=== PATIENT | female | born 1955 | race Caucasian/White ===

== ENCOUNTER 2022-08-06 04:04 | Emergency (ER) | payer MEDICARE, OTHER ==
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
[2022-08-06 04:35] LABS: MUDS CUTOFF CONCENTRATIONS CUTOFF CONC BELOW:
[2022-08-06 04:37] LABS: GLUCOSE, URINE (UA) NEGATIVE (NEGATIVE); KETONES,URINE (UA) 40 mg/dL (NEGATIVE); LEUKOCYTE ESTERASE, URINE TRACE (NEGATIVE); NITRITE,URINE NEGATIVE (NEGATIVE); OCCULT BLOOD,URINE SMALL (NEGATIVE); PROTEIN,URINE 30 mg/dL (NEGATIVE); UROBILINOGEN,URINE 2 E.U./dL (NORMAL)
[2022-08-06 04:45] LABS: BACTERIA,URINE Few /HPF (None Seen); BILIRUBIN,URINE NEGATIVE (NEGATIVE); CASTS, URINE 0-2 Hyaline Casts /LPF; CLARITY,URINE CLEAR (CLEAR); ICTOTEST,URINE NEGATIVE; RBC,URINE 0-5 /HPF (0-5); SQUAMOUS EPITHELIAL CELL,UR MOD Squamous (<= Few)
[2022-08-06 04:47] LABS: AMPHETAMINE SCREEN,URINE NEGATIVE (NEGATIVE); BARBITURATE SCREEN,UR NEGATIVE (NEGATIVE); BENZODIAZEPINES SCREEN, URINE NEGATIVE (NEGATIVE); COCAINE SCREEN URINE NEGATIVE (NEGATIVE); METHADONE SCREEN, URINE NEGATIVE (NEGATIVE); METHAMPHETAMINES SCREEN, URINE NEGATIVE (NEGATIVE); OPIATE SCREEN, URINE NEGATIVE (NEGATIVE); OXYCODONE SCREEN, URINE NEGATIVE (NEGATIVE); PROPOXYPHENE SCREEN, URINE NEGATIVE (NEGATIVE); THC CANNABINOID SCREEN, URINE NEGATIVE (NEGATIVE); TRICYCLIC ANTIDEPRESSANT,URINE NEGATIVE (NEGATIVE)
[2022-08-06 05:29] LABS: BASOPHILS # (AUTO) 0.1 10^3/uL (0.0-0.1); BASOPHILS % (AUTO) 0.9 %; EOSINOPHILS # (AUTO) 0.1 10^3/uL (0.0-0.7); EOSINOPHILS % (AUTO) 0.6 %; HCT - HEMATOCRIT 45.6 % (37.0-47.0); HGB - HEMOGLOBIN 15.1 g/dL (12.0-16.0); LYMPHOCYTES # (AUTO) 1.9 10^3/uL (1.5-3.5); LYMPHOCYTES % (AUTO) 19.1 %; MEAN CORPUSCULAR HEMOGLOBIN 28.5 pg (27.0-31.0); MEAN CORPUSCULAR HGB CONC 33.1 g/dL (32.0-36.0); MEAN CORPUSCULAR VOLUME 86.2 fL (81.0-99.0); MEAN PLATELET VOLUME 9.8 fL (7.9-10.8); MONOCYTES # (AUTO) 0.7 10^3/uL (0.0-1.0); MONOCYTES % (AUTO) 7.4 %; NEUTROPHILS # (AUTO) 7.1 10^3/uL (1.5-6.6); NEUTROPHILS % (AUTO) 71.5 %; PLT - PLATELET COUNT 197 10^3/uL (130-450); RED BLOOD COUNT 5.29 10^6/uL (4.20-5.40); RED CELL DISTRIBUTION WIDTH 15.1 % (12.0-15.0); WHITE BLOOD COUNT 9.9 x10^3/uL (4.8-10.8)
[2022-08-06 05:44] LABS: ALBUMIN/GLOBULIN RATIO 1.1 (1.0-2.2); BILIRUBIN,TOTAL 0.9 mg/dL (0.2-1.0); CALCIUM 9.2 mg/dL (8.5-10.3); CREATININE 1.1 mg/dL (0.4-1.0); POTASSIUM 3.3 mmol/L (3.5-5.0); TOTAL PROTEIN 7.7 g/dL (6.7-8.2)
[2022-08-06] MEDS ORDERED: hydrALAZINE 10 MG TABLET PO STA (07:33)
--- NOTE | 2022-08-06 07:51 | CT Report ---
PROCEDURE: HEAD WO INDICATIONS: AMS TECHNIQUE: Noncontrast 4.5 mm thick angled axial sections acquired from the foramen magnum to the vertex. For r adiation dose reduction, the following was used: automated exposure control, adjustment of mA and/or kV according to patient size. COMPARISON: . FINDINGS: Image quality: Excellent. The ventricular system and cortical sulci demonstrate atrophy, consistent for patient's stated age. There are areas of hypodensity in the periventricular and subcortical white matter. There is no acut e intra or extra-axial fluid collection. No acute hemorrhage, mass lesion or midline shift. Focus o f old ischemia is noted within the left centrum semiovale. Brainstem is unremarkable. Globes are sym metrical. Sinuses are aerated. Fluid is present in the right mastoid air cells. Osseous structures ar e intact. IMPRESSION: Reviewed by: Tracy Trejo MD on 08/06/2022 7:50 AM PDT Approved by: Tracy Trejo MD on 08/06/2022 7:50 AM PDT Station ID: [id number]
--- NOTE | 2022-08-06 13:09 | MRI Report ---
PROCEDURE: Brain W/O INDICATIONS: DIZZINESS, CONFUSION TECHNIQUE: Noncontrast axial T1 spin echo, axial T2 fast spin echo, sagittal and axial FLAIR, coronal T2 fast sp in echo, axial gradient echo, axial diffusion and ADC through the brain. COMPARISON: CT head 522 FINDINGS: Image quality: Excellent. The ventricular system and cortical sulci demonstrate atrophy, consistent for patient's stated age. There are areas of hyperintense T2/FLAIR signal in the periventricular and subcortical white matter. There is no acute intra or extra-axial fluid collection. No acute hemorrhage, mass lesion or midlin e shift. Brainstem is unremarkable. There are no areas of restricted diffusion. Focus of old ischem ia is noted in the left h[place] radiata. Globes are symmetrical. Sinuses are aerated. Osseous structu res are intact. Fluid is present within the right mastoid air cells. Recommend correlation of potenti al mastoiditis. IMPRESSION: 1. No acute intracranial process. 2. Moderate atrophy and chronic microvascular ischemic changes. Reviewed by: Tracy Trejo MD on 08/06/2022 1:07 PM PDT Approved by: Tracy Trejo MD on 08/06/2022 1:07 PM PDT Station ID: [id number]
[2022-08-06 13:28] VITALS: BP 163/108
[2022-08-06] MEDS ORDERED: lisinopriL 5 MG TABLET PO STA (14:57)
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
== END 2022-08-06 16:41 | disposition home or self-care (01) ==
LOC: EDUNIT# → ED 04:04
DX: R41.0 Disorientation, unspecified (principal); I10 Essential (primary) hypertension
CPT/HCPCS: 36415; 70450; 70551; 80053; 80306; 81001; 83690; 85025; 99281; 99284; A9270; 87086

== ENCOUNTER → 2022-08-06 | Outpatient (CLI) | payer SELFPAY | END | disposition critical access hospital (66) | LOC: EMS 03:46 | DX: R41.82 Altered mental status, unspecified (principal) | CPT/HCPCS: A0425; A0429 ==

== ENCOUNTER 2022-08-07 11:39 | Outpatient (CLI) | payer SELFPAY | END 2022-08-07 11:40 | disposition critical access hospital (66) | LOC: EMS 11:39 | DX: I10 Essential (primary) hypertension (principal); R00.0 Tachycardia, unspecified | CPT/HCPCS: A0425; A0429 ==

== ENCOUNTER 2022-08-07 11:58 | Emergency (ER) | payer SELFPAY ==
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
[2022-08-07 12:33] LABS: BASOPHILS # (AUTO) 0.1 10^3/uL (0.0-0.1); BASOPHILS % (AUTO) 0.6 %; EOSINOPHILS % (AUTO) 0.3 %; HCT - HEMATOCRIT 45.2 % (37.0-47.0); HGB - HEMOGLOBIN 15.5 g/dL (12.0-16.0); LYMPHOCYTES % (AUTO) 17.2 %; MEAN CORPUSCULAR HGB CONC 34.3 g/dL (32.0-36.0); MEAN CORPUSCULAR VOLUME 84.5 fL (81.0-99.0); MEAN PLATELET VOLUME 10.1 fL (7.9-10.8); MONOCYTES # (AUTO) 0.8 10^3/uL (0.0-1.0); MONOCYTES % (AUTO) 7.1 %; NEUTROPHILS # (AUTO) 8.5 10^3/uL (1.5-6.6); NEUTROPHILS % (AUTO) 74.4 %; PLT - PLATELET COUNT 220 10^3/uL (130-450); RED BLOOD COUNT 5.35 10^6/uL (4.20-5.40); WHITE BLOOD COUNT 11.4 x10^3/uL (4.8-10.8)
[2022-08-07 12:51] LABS: ACETAMINOPHEN < 10 ug/mL (10-30); ALBUMIN 3.9 g/dL (3.2-5.5); ALBUMIN/GLOBULIN RATIO 1.1 (1.0-2.2); ALKALINE PHOSPHATASE 73 IU/L (42-121); ALT ALANINE AMINOTRANSFERASE 15 IU/L (10-60); AST ASPARTATE AMINOTRANSFERASE 17 IU/L (10-42); BUN - BLOOD UREA NITROGEN 27 mg/dL (6-20); CALCIUM 9.6 mg/dL (8.5-10.3); CARBON DIOXIDE - CO2 22 mmol/L (21-32); CHLORIDE 99 mmol/L (101-111); CREATININE 1.3 mg/dL (0.4-1.0); ETOH - ETHANOL < 5.0 mg/dL; GFR - MDRD 41 (>89); GLUCOSE 127 mg/dL (70-100); LIPASE 36 U/L (22-51); POTASSIUM 3.2 mmol/L (3.5-5.0); SALICYLATE < 6.0 mg/dL; SODIUM 133 mmol/L (135-145); TOTAL PROTEIN 7.5 g/dL (6.7-8.2)
[2022-08-07 13:22] LABS: MUDS CUTOFF CONCENTRATIONS CUTOFF CONC BELOW:
[2022-08-07 13:50] LABS: GLUCOSE, URINE (UA) NEGATIVE (NEGATIVE); KETONES,URINE (UA) 15 mg/dL (NEGATIVE); LEUKOCYTE ESTERASE, URINE TRACE (NEGATIVE); NITRITE,URINE NEGATIVE (NEGATIVE); OCCULT BLOOD,URINE LARGE (NEGATIVE); PH,URINE 5.5 PH (5.0-7.5); PROTEIN,URINE 30 mg/dL (NEGATIVE); UROBILINOGEN,URINE 1 (NORMAL) E.U./dL (NORMAL)
[2022-08-07 13:53] LABS: BILIRUBIN,URINE NEGATIVE (NEGATIVE); CLARITY,URINE HAZY (CLEAR); ICTOTEST,URINE NEGATIVE
[2022-08-07 13:57] LABS: BACTERIA,URINE Few /HPF (None Seen); SQUAMOUS EPITHELIAL CELL,UR MANY Squamous (<= Few)
[2022-08-07 14:00] LABS: AMPHETAMINE SCREEN,URINE NEGATIVE (NEGATIVE); BARBITURATE SCREEN,UR NEGATIVE (NEGATIVE); BENZODIAZEPINES SCREEN, URINE NEGATIVE (NEGATIVE); COCAINE SCREEN URINE NEGATIVE (NEGATIVE); METHADONE SCREEN, URINE NEGATIVE (NEGATIVE); METHAMPHETAMINES SCREEN, URINE NEGATIVE (NEGATIVE); OPIATE SCREEN, URINE NEGATIVE (NEGATIVE); OXYCODONE SCREEN, URINE NEGATIVE (NEGATIVE); PROPOXYPHENE SCREEN, URINE NEGATIVE (NEGATIVE); THC CANNABINOID SCREEN, URINE NEGATIVE (NEGATIVE); TRICYCLIC ANTIDEPRESSANT,URINE NEGATIVE (NEGATIVE)
[2022-08-07] MEDS ORDERED: HALOPERIDOL 5 MG/ML VIAL IVP STA (15:19)
[2022-08-07] MEDS ORDERED: LORazepam 2 MG/ML VIAL IVP STA (15:19)
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
[2022-08-07] MEDS: OLANZapine ODT 5 MG TABLET TL SCH (21:02)
[2022-08-08] MEDS ORDERED: NICOTINE 14 MG PATCH TOP STA (04:11)
[2022-08-08 05:56] VITALS: BP 142/72
[2022-08-08] MEDS: OLANZapine ODT 5 MG TABLET TL SCH (10:14)
== END 2022-08-08 11:58 | disposition home or self-care (01) ==
LOC: EDUNIT# → ED 11:58
DX: F22 Delusional disorders (principal); F23 Brief psychotic disorder; Z20.822 Contact with and (suspected) exposure to COVID-19
CPT/HCPCS: 36415; 80053; 80306; 80307; 80320; 80329; 81001; 83690; 84443; 85025; 87635; 93005; 96374; 99281; 99285; A9270; G0425; J2060; Q3014; 81003; 87086

== ENCOUNTER 2022-08-09 12:40 | Outpatient (CLI) | payer SELFPAY | END 2022-08-09 12:41 | disposition critical access hospital (66) | LOC: EMS 12:40 | DX: Z04.6 Encounter for general psychiatric examination, requested by authority (principal); R41.0 Disorientation, unspecified | CPT/HCPCS: A0425; A0429 ==

== ENCOUNTER 2022-08-09 21:19 | Outpatient (CLI) | payer SELFPAY | END 2022-08-09 21:20 | disposition critical access hospital (66) | LOC: EMS 21:19 | DX: Z04.6 Encounter for general psychiatric examination, requested by authority (principal); R41.0 Disorientation, unspecified | CPT/HCPCS: A0425; A0429 ==

== ENCOUNTER 2022-08-09 21:36 | Emergency (ER) | payer SELFPAY ==
[2022-08-10] MEDS ORDERED: NICOTINE 14 MG PATCH TOP STA (00:58)
[2022-08-10] MEDS ORDERED: OLANZapine ODT 5 MG TABLET TL STA (02:43)
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
[2022-08-10 06:20] LABS: CALCIUM 8.8 mg/dL (8.5-10.3); CREATININE 1.1 mg/dL (0.4-1.0); POTASSIUM 3.6 mmol/L (3.5-5.0)
[2022-08-10 09:26] VITALS: BP 165/115
[2022-08-10] MEDS ORDERED: lisinopriL 5 MG TABLET PO STA (09:28)
== END 2022-08-10 10:21 ==
LOC: EDUNIT# → ED 21:36
DX: F23 Brief psychotic disorder (principal); F41.9 Anxiety disorder, unspecified; F22 Delusional disorders
CPT/HCPCS: 36415; 80048; A9270

== ENCOUNTER 2022-08-29 21:49 | Outpatient (CLI) | payer SELFPAY | END 2022-08-29 21:50 | disposition critical access hospital (66) | LOC: EMS 21:49 | DX: R47.81 Slurred speech (principal); R47.02 Dysphasia; R20.0 Anesthesia of skin; I10 Essential (primary) hypertension | CPT/HCPCS: A0425; A0429 ==

== ENCOUNTER 2022-08-29 22:03 | Emergency (ER) | payer SELFPAY ==
[2022-08-29 22:29] LABS: BASOPHILS # (AUTO) 0.1 10^3/uL (0.0-0.1); BASOPHILS % (AUTO) 0.7 %; EOSINOPHILS # (AUTO) 0.2 10^3/uL (0.0-0.7); EOSINOPHILS % (AUTO) 1.6 %; HCT - HEMATOCRIT 44.5 % (37.0-47.0); HGB - HEMOGLOBIN 14.4 g/dL (12.0-16.0); LYMPHOCYTES # (AUTO) 3.3 10^3/uL (1.5-3.5); LYMPHOCYTES % (AUTO) 30.3 %; MEAN CORPUSCULAR HGB CONC 32.4 g/dL (32.0-36.0); MEAN CORPUSCULAR VOLUME 86.6 fL (81.0-99.0); MEAN PLATELET VOLUME 10.2 fL (7.9-10.8); MONOCYTES # (AUTO) 0.8 10^3/uL (0.0-1.0); MONOCYTES % (AUTO) 7.6 %; NEUTROPHILS # (AUTO) 6.4 10^3/uL (1.5-6.6); NEUTROPHILS % (AUTO) 59.4 %; PLT - PLATELET COUNT 228 10^3/uL (130-450); RED BLOOD COUNT 5.14 10^6/uL (4.20-5.40); RED CELL DISTRIBUTION WIDTH 14.9 % (12.0-15.0); WHITE BLOOD COUNT 10.7 x10^3/uL (4.8-10.8)
[2022-08-29 22:41] LABS: ALBUMIN 3.8 g/dL (3.2-5.5); BILIRUBIN,TOTAL 0.6 mg/dL (0.2-1.0); CALCIUM 8.6 mg/dL (8.5-10.3); CREATININE 1.3 mg/dL (0.4-1.0); POTASSIUM 4.1 mmol/L (3.5-5.0); TOTAL PROTEIN 7.7 g/dL (6.7-8.2)
--- NOTE | 2022-08-29 22:50 | CT Report ---
PROCEDURE: HEAD WO INDICATIONS: AMS TECHNIQUE: Noncontrast 4.5 mm thick angled axial sections acquired from the foramen magnum to the vertex. For r adiation dose reduction, the following was used: automated exposure control, adjustment of mA and/or kV according to patient size. COMPARISON: CT head 08/06/2022. FINDINGS: Image quality: Excellent. CSF spaces: There is mild cerebral volume loss with prominence of the ventricles and sulci. Basal ci sterns are patent. No extra-axial fluid collections. Brain: No intracranial hemorrhage, mass, or mass effect. There is a focal hypodensity in the left co shreya radiata redemonstrated consistent with sequelae of a prior lacunar infarct. Gonzalez-white matter in terface is preserved. There are subcortical and periventricular white matter hypodensities consistent with mild chronic small vessel ischemic changes. Skull and face: Calvarium and visualized facial bones are intact, without suspicious lesions. Sinuses: Visualized sinuses are clear. There is partial fluid opacification of the right mastoid air cells compatible with mastoiditis. IMPRESSION: 1. No acute intracranial abnormality. 2. Hypodensity in the left hutchinson radiata consistent with sequelae of a prior lacunar infarct. 3. Mild chronic white matter small vessel ischemic changes and cerebral volume loss. 4. Partial fluid opacification of the right mastoid air cells compatible with mastoiditis. Reviewed by: Cheko Alegre MD on 08/29/2022 10:48 PM PDT Approved by: Cheko Alegre MD on 08/29/2022 10:48 PM PDT Station ID: [id number]
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
[2022-08-29 23:56] LABS: BILIRUBIN,URINE NEGATIVE (NEGATIVE); GLUCOSE, URINE (UA) NEGATIVE (NEGATIVE); KETONES,URINE (UA) 15 mg/dL (NEGATIVE); LEUKOCYTE ESTERASE, URINE SMALL (NEGATIVE); NITRITE,URINE NEGATIVE (NEGATIVE); OCCULT BLOOD,URINE NEGATIVE (NEGATIVE); PH,URINE 5.5 PH (5.0-7.5); PROTEIN,URINE NEGATIVE (NEGATIVE); UROBILINOGEN,URINE 1 (NORMAL) E.U./dL (NORMAL)
[2022-08-29 23:57] LABS: CLARITY,URINE HAZY (CLEAR)
[2022-08-30 00:02] LABS: BACTERIA,URINE Few /HPF (None Seen); CASTS, URINE 0-2 Hyaline Casts /LPF; RBC,URINE 0-5 /HPF (0-5); SQUAMOUS EPITHELIAL CELL,UR MOD Squamous (<= Few)
[2022-08-30] MEDS ORDERED: OLANZapine ODT 5 MG TABLET TL ONE (06:38)
--- NOTE | 2022-08-30 11:20 | ED Physician Documentation ---
ED Addendum - Addendum Addendum: 08/30/22 11:19 Seen by social work, patient was agreeable to inpatient psychiatric placement, [facility] was queried but they did not feel she was appropriate for their facility. Social work did quite a bit of work on this and family friends will come pick her up on Thursday and take her to [place]. Disposition: Discharged home Condition: Stable Diagnoses: 1. Dementia with behavioral disturbances I will refill her Zyprexa 2.5 mg p.o. twice daily #20.
[2022-08-30 11:42] VITALS: BP 147/85
== END 2022-08-30 11:41 | disposition home or self-care (01) ==
LOC: EDUNIT# → ED 22:03
DX: R41.0 Disorientation, unspecified (principal); F03.918 Unspecified dementia, unspecified severity, with other behavioral disturbance; Z20.822 Contact with and (suspected) exposure to COVID-19
CPT/HCPCS: 36415; 70450; 80053; 80320; 81001; 83690; 85025; 87635; 93005; 99283; 99284; A9270; 81003; 87086

== ENCOUNTER 2022-09-02 16:59 | Outpatient (CLI) | payer SELFPAY | END 2022-09-02 17:00 | disposition critical access hospital (66) | LOC: EMS 16:59 | DX: R47.81 Slurred speech (principal); R47.02 Dysphasia | CPT/HCPCS: A0425; A0429 ==

== ENCOUNTER 2022-09-02 17:20 | Emergency (ER) | payer SELFPAY ==
--- NOTE | 2022-09-02 17:29 | ED Physician Documentation ---
History of Present Illness - Stated complaint Stated Complaint: CODE STROKE - Additonal information Additional information: 67-year-old female presents to the emergency department under a code stroke protocol. EMS was notified when a friend at home noted that she had slurred speech. This occurred at 1630. Her blood sugar was 115 for EMS. In route to the hospital the slurred speech fully resolved. There were no findings of facial droop arm or leg weakness. This patient was seen for very similar presentation on 29 August. She had a negative CT. She also had a negative MRI earlier this month. This patient has been seen recently in the ER multiple times for mental health exam and behavioral disturbance. She was discharged from this emergency department on the and a family friend was planning to take the patient with them to [facility]. On presentation to the emergency department the patient is alert and oriented. She has fluid speech. Her NIHSS on presentation is 0. Review of Systems Constitutional: denies: Fever, Chills Eyes: reports: Reviewed and negative Ears: reports: Reviewed and negative Throat: reports: Reviewed and negative Cardiac: reports: Reviewed and negative Respiratory: reports: Reviewed and negative GI: reports: Reviewed and negative : reports: Reviewed and negative Musculoskeletal: reports: Reviewed and negative Neurologic: reports: Other (Slurred speech) PD PAST MEDICAL HISTORY - Past Medical History Neuro: Dementia Psych: Anxiety - Past Surgical History Past Surgical History: No - Present Medications Home Medications: Ambulatory Orders Medication Instructions Recorded Confirmed Lisinopril [Zestril] 10 mg PO DAILY #30 tablet 08/06/22 OLANZapine [Zyprexa] 2.5 mg PO BID #60 tablet 08/08/22 cephALEXin [Keflex] 500 mg PO BID #14 cap 08/09/22 OLANZapine [Zyprexa] 2.5 mg PO BID #20 tablet 08/30/22 Aspirin [[place] Aspirin] 81 mg PO DAILY #30 ea 09/02/22 Atorvastatin [Lipitor] 20 mg PO DAILY #30 tablet 09/02/22 Clopidogrel [Plavix] 75 mg PO DAILY #30 tablet 09/02/22 - Allergies Allergies/Adverse Reactions: Allergies Allergy/AdvReac Type Severity Reaction Status Date / Time No Known Drug Allergies Allergy Verified 09/02/22 17:53 - Social History Does the pt smoke?: No Smoking Status: Never smoker Does the pt have substance abuse?: No - Immunizations Immunizations are current?: No - POLST Patient has POLST: No PD ED PE NORMAL - General General: Alert and oriented X 3, No acute distress - HEENT HEENT: Atraumatic, Moist mucous membranes - Neck Neck: Supple, no meningeal sign, No adenopathy - Cardiac Cardiac: RRR, No murmur, No gallop - Respiratory Respiratory: No respiratory distress - Abdomen Abdomen: Normal bowel sounds, Soft - Back Back: No CVA TTP, No spinal TTP - Derm Derm: Normal color, Warm and dry, No rash - Extremities Extremities: No deformity, No tenderness to palpate, Normal ROM s pain - Neuro Neuro: Alert and oriented X 3, senior payroll specialist 2-12 intact, No motor deficit, Normal speech Eye Opening: Spontaneous Motor: Obeys Commands Verbal: Oriented GCS Score: 15 Results - Vitals Vitals: Vital Signs - 24 hr 09/02/22 09/02/22 09/02/22 17:20 17:57 18:27 Temperature 37.0 C 37.0 C Heart Rate 90 98 82 Respiratory 16 16 22 Rate Blood Pressure 158/100 H 160/90 H 175/96 H O2 Saturation 100 95 94 09/02/22 09/02/22 09/02/22 19:00 19:30 20:00 Temperature Heart Rate 84 71 90 Respiratory 14 20 16 Rate Blood Pressure 145/67 H 162/71 H 160/100 H O2 Saturation 98 97 96 09/02/22 09/02/22 09/02/22 20:30 21:00 21:30 Temperature Heart Rate 100 88 75 Respiratory 16 18 20 Rate Blood Pressure 160/90 H 150/60 H 142/69 H O2 Saturation 96 96 92 09/02/22 22:00 Temperature Heart Rate 56 L Respiratory 16 Rate Blood Pressure 116/69 O2 Saturation 94 Oxygen O2 Source Room air - Labs Labs: Laboratory Tests 09/02/22 09/02/22 09/02/22 17:55 17:55 17:55 WBC 10.2 RBC 5.59 H Hgb 15.7 Hct 47.6 H MCV 85.2 MCH 28.1 MCHC 33.0 RDW 14.6 Plt Count 241 MPV 9.8 Neut # (Auto) 7.0 H Lymph # (Auto) 2.3 [place] # (Auto) 0.7 Eos # (Auto) 0.1 Baso # (Auto) 0.1 Absolute Nucleated RBC 0.00 Nucleated RBC % 0.0 ESR 13 PT 11.1 INR 1.0 Sodium Potassium Chloride Carbon Dioxide Anion Gap BUN Creatinine Estimated GFR (MDRD) Glucose Calcium Total Bilirubin AST ALT Alkaline Phosphatase C-Reactive Protein Total Protein Albumin Globulin Albumin/Globulin Ratio Lipase Ethyl Alcohol 09/02/22 17:55 WBC RBC Hgb Hct MCV MCH MCHC RDW Plt Count MPV Neut # (Auto) Lymph # (Auto) [place] # (Auto) Eos # (Auto) Baso # (Auto) Absolute Nucleated RBC Nucleated RBC % ESR PT INR Sodium 131 L Potassium 3.6 Chloride 96 L Carbon Dioxide 23 Anion Gap 12.0 BUN 23 H Creatinine 1.4 H Estimated GFR (MDRD) 38 L Glucose 108 H Calcium 9.1 Total Bilirubin 0.8 AST 17 ALT 16 Alkaline Phosphatase 69 C-Reactive Protein 2.0 H Total Protein 7.6 Albumin 3.8 Globulin 3.8 Albumin/Globulin Ratio 1.0 Lipase 45 Ethyl Alcohol < 5.0 - Rads (name of study) CTA head Radiology: Final report received (Atherosclerotic calcifications in the inner terminal intracranial carotid arteries with no significant stenosis. Otherwise normal CTA of the head.) CT neck Radiology: Final report received (Atherosclerotic calcifications in the carotid bulbs with 80% stenosis of the right proximal ICA and less than 20% stenosis of the left proximal ICA. Tortuous ICAs especially the right.) PD MEDICAL DECISION MAKING - ED course Complexity details: reviewed old records, reviewed results, re-evaluated patient, considered differential, d/w patient, d/w financial services education consultant ED course: 67-year-old female presents to the emergency department for evaluation of slurred speech. Symptoms began about 1630. By the time the EMS arrived here just after 5 PM the patient was free of any slurred speech. Her NIHSS was 0. She has been seen here recently for similar. She recently underwent a negative CT of the head. She also had an MRI of her brain in early August that did not show any acute findings. Given the repeated evaluations for slurred speech I did perform CT angios of the head and neck. There was an unfortunate finding of 80% stenosis of the right carotid artery with atherosclerotic plaque. I did speak on the phone with Dr. De Paz a neurovascular Neurologist with [facility]. During our conversation we discussed the patient's presentation and her symptoms and the fact that she was now free of findings. He did not feel that an emergent intervention or transfer was necessary as she did not apparently have any further stroke related symptoms. He did make the recommendation that I speak with vascular surgery. I then spoke with Dr. Jc Moura vascular surgeon also with [facility]. He would make the recommendation to continue the patient on Plavix aspirin and a statin. Patient was loaded with aspirin and given Plavix and statin here. However the recommendation was not to "load" with Plavix. He would like the patient to be followed up in his office in the next 2 weeks and will direct the office to call the patient in the next few days to help arrange this appointment. I have discussed this plan with the patient. Over the last few hours she has repeatedly been asking to be discharged home. She is going to go home via taxi. With her last emergency department evaluation she was being seen by social work and I will asked social work to follow-up with the patient tomorrow to ensure the continuity of care. I discussed with the patient emergent return precautions for concerns of strokelike symptoms specifically left-sided deficits. Departure - Departure Disposition: 01 Home, Self Care Clinical Impression: Carotid stenosis Qualifiers: Laterality: right Qualified Code(s): I65.21 - Occlusion and stenosis of right carotid artery Condition: Stable Record reviewed to determine appropriate education?: Yes Instructions: Blockage Carotid Artery Prescriptions: Atorvastatin [Lipitor] 20 mg PO DAILY #30 tablet Clopidogrel [Plavix] 75 mg PO DAILY #30 tablet Aspirin [[place] Aspirin] 81 mg PO DAILY #30 ea Comments: Sheri valencia came to the emergency department because she developed sudden slurred speech. By the time that you arrived to the emergency department the speech had resolved. We did do angiograms of your head and neck. We do find that you have about 80% stenosis Of the right internal carotid artery with atherosclerotic plaque. I have discussed this case with both the neurovascular neurologist at [facility] as well as a vascular surgeon. The recommendation is for you to begin taking aspirin, Plavix and Lipitor daily. These prescriptions have been sent to the [facility] in [place]. [facility] vascular surgery clinic with Dr. Jc Moura will be giving you a call in the next few days to help arrange follow-up for your carotid stenosis. You will need to be seen at a clinic in [place] in order to arrange the treatment. You will most likely need what is called a carotid endarterectomy or carotid stenting. If you do not hear from them in 48 hours p danitza call If at any point you develop worsening symptoms, have left-sided facial droop, slurred speech or arm or with leg weakness especially on the left side then please return immediately to the ER for a second evaluation. NIHSS - Time Time: 17:20 - Level of Consciousness Level of consciousness: (0) Alert, Keenly responsive LOC Questions: (0) Answers both Q's correct LOC Commands: (0) Performs both correctly - Gaze Best Gaze: (0) Normal - Visual Visual: (0) No loss - Facial Palsy Facial Palsy: (0) Normal, symmetrical movement - Motor Arms (both separate) Motor Arm (right): (0) No drift Motor Arm (left): (0) No drift - Motor Legs (both separate) Motor Leg (right): (0) No drift Motor Leg (left): (0) No drift - Limb Ataxia Limb Ataxia: (0) Absent - Sensory Sensory: (0) Normal - Best Language Best Language: (0) No aphasia - Dysarthria Dysarthria: (0) Normal - Extinction and Inattention (formally neg Extinction and inattention: (0) No abnormality - Total Score/Results Total Score/Result: 0
[2022-09-02 18:00] LABS: BASOPHILS # (AUTO) 0.1 10^3/uL (0.0-0.1); BASOPHILS % (AUTO) 0.7 %; EOSINOPHILS # (AUTO) 0.1 10^3/uL (0.0-0.7); EOSINOPHILS % (AUTO) 0.8 %; HCT - HEMATOCRIT 47.6 % (37.0-47.0); HGB - HEMOGLOBIN 15.7 g/dL (12.0-16.0); LYMPHOCYTES # (AUTO) 2.3 10^3/uL (1.5-3.5); LYMPHOCYTES % (AUTO) 22.6 %; MEAN CORPUSCULAR HEMOGLOBIN 28.1 pg (27.0-31.0); MEAN CORPUSCULAR VOLUME 85.2 fL (81.0-99.0); MEAN PLATELET VOLUME 9.8 fL (7.9-10.8); MONOCYTES # (AUTO) 0.7 10^3/uL (0.0-1.0); MONOCYTES % (AUTO) 6.8 %; NEUTROPHILS % (AUTO) 68.7 %; PLT - PLATELET COUNT 241 10^3/uL (130-450); RED BLOOD COUNT 5.59 10^6/uL (4.20-5.40); RED CELL DISTRIBUTION WIDTH 14.6 % (12.0-15.0); WHITE BLOOD COUNT 10.2 x10^3/uL (4.8-10.8)
[2022-09-02] MEDS ORDERED: iohexoL-300 100 ML VIAL ONE (18:10)
[2022-09-02 18:11] LABS: PT - PROTHROMBIN TIME 11.1 secs (9.9-12.6)
--- NOTE | 2022-09-02 18:13 | CT Report ---
PROCEDURE: ANGIO HEAD W/WO INDICATIONS: brief slurred speech CONTRAST: 80ml Omnipaque 300 TECHNIQUE: Precontrast 4.5 mm thick angled axial sections acquired from the foramen magnum to the vertex. Afte r the administration of intravenous contrast, 1 mm thick sections acquired through the [place] is. Postcontrast 4.5 mm thick sections then re-acquired from the foramen magnum to the vertex. 3-di mensional tokbavl-wyxukhztm-foorgukeif (MIP) and/or volume rendering reformats were acquired of the c entral intracranial vasculature. For radiation dose reduction, the following was used: automated ex posure control, adjustment of mA and/or kV according to patient size. COMPARISON: None FINDINGS: Image quality: Excellent. Anterior circulation: Intracranial internal carotid arteries have diffuse calcified atherosclerotic disease with no significant stenosis. The flow within the paired anterior cerebral arteries is normal and symmetric. The flow within the middle cerebral arteries is normal and symmetric. The anterior communicating artery is seen. No aneurysms are seen. Posterior circulation: Visualized portions of the vertebral arteries demonstrate normal caliber, and join to form a normal appearing basilar artery. Flow within the posterior cerebral arteries is norm al and symmetric. No aneurysms are seen. CSF spaces: Ventricles are normal in size and shape. Basal cisterns are patent. No extra-axial flu id collections. Brain: No midline shift. Hypodensity in the left hutchinson radiata is unchanged compared to prior CT c onsistent with a prior lacunar infarct. No intracranial bleeds or masses. Gonzalez-white matter interfac e appears intact. Skull and face: Calvarium and facial bones appear intact, without suspicious lesions. Sinuses: Visualized sinuses and mastoids are clear. IMPRESSION: Atherosclerotic calcifications in the intracranial internal carotid arteries with no sig nificant stenosis. Otherwise normal CTA of the head. Reviewed by: Chinmay Iqbal on 09/02/2022 6:12 PM PDT Approved by: Chinmay Iqbal on 09/02/2022 6:12 PM PDT Station ID: [id number]
--- NOTE | 2022-09-02 18:18 | CT Report ---
PROCEDURE: ANGIO NECK W INDICATIONS: brief slurred speech CONTRAST: 80ml Omnipaque 300 TECHNIQUE: After the administration of intravenous contrast, 1.5 mm axial sections acquired from the aortic arch to the [place] of [place]. Coronal 3-D maximum intensity projection (MIP) and/or volume rendering ref ormats were then performed. For radiation dose reduction, the following was used: automated exposur e control, adjustment of mA and/or kV according to patient size. COMPARISON: None. FINDINGS: Image quality: Excellent. Carotid system: The great vessels demonstrate a conventional anatomy as they arise from the aortic a rch. The origins of the common carotid arteries appear patent. The common carotid arteries demonstr ate normal calibers and courses. Focal atherosclerotic calcified plaque in the bulbs bilaterally with 80% stenosis of the right proximal ICA and less than 20% stenosis of the left proximal ICA. Both ICA s are tortuous, especially the right. Posterior circulation: The origins of the vertebral arteries appear patent. The more superior porti ons of the vertebral arteries demonstrate normal course and caliber. They join to form a normal appe aring basilar artery. Soft tissues: Visualized neck soft tissues demonstrate no suspicious abnormalities. The thyroid is normal in size and there are no incidental findings. Bones: No suspicious bony lesions. Visualized cervical spine appears normally aligned. IMPRESSION: 1. Atherosclerotic calcifications in the carotid bulbs with 80% stenosis of the right proximal ICA an d less than 20% stenosis of the left proximal ICA. 2. Tortuosity of the ICAs, especially the right.. The estimate of stenosis included in the report of the imaging study was calculated using the NASCET method Reviewed by: Chinmay Iqbal on 09/02/2022 6:17 PM PDT Approved by: Chinmay Iqbal on 09/02/2022 6:17 PM PDT Station ID: [id number]
[2022-09-02 18:21] LABS: ALBUMIN 3.8 g/dL (3.2-5.5); ALKALINE PHOSPHATASE 69 IU/L (42-121); ALT ALANINE AMINOTRANSFERASE 16 IU/L (10-60); AST ASPARTATE AMINOTRANSFERASE 17 IU/L (10-42); BILIRUBIN,TOTAL 0.8 mg/dL (0.2-1.0); BUN - BLOOD UREA NITROGEN 23 mg/dL (6-20); CALCIUM 9.1 mg/dL (8.5-10.3); CARBON DIOXIDE - CO2 23 mmol/L (21-32); CHLORIDE 96 mmol/L (101-111); CREATININE 1.4 mg/dL (0.4-1.0); ETOH - ETHANOL < 5.0 mg/dL; GFR - MDRD 38 (>89); GLUCOSE 108 mg/dL (70-100); LIPASE 45 U/L (22-51); POTASSIUM 3.6 mmol/L (3.5-5.0); SODIUM 131 mmol/L (135-145); TOTAL PROTEIN 7.6 g/dL (6.7-8.2)
[2022-09-02] MEDS ORDERED: iohexoL-300 100 ML VIAL IVP ONE (18:45)
[2022-09-02] MEDS ORDERED: SODIUM CHLORIDE 0.9% 1,000 ML IV STA (18:58)
[2022-09-02 22:21] VITALS: BP 116/69
[2022-09-02] MEDS ORDERED: ATORVASTATIN 40 MG TABLET PO STA (22:25)
[2022-09-02] MEDS ORDERED: CLOPIDOGREL 75 MG TABLET PO STA (22:25)
[2022-09-02] MEDS ORDERED: ASPIRIN CHEW 81 MG TABLET PO STA (22:25)
== END 2022-09-02 22:40 | disposition home or self-care (01) ==
LOC: EDBD → EDUNIT# → ED 17:20
DX: I65.21 Occlusion and stenosis of right carotid artery (principal)
CPT/HCPCS: 36415; 70496; 70498; 80053; 80320; 83690; 85025; 85610; 85651; 86140; 99283; 99284; A9270; Q9967

== ENCOUNTER 2022-09-14 09:14 | Outpatient (CLI) | payer SELFPAY | END 2022-09-14 23:59 | disposition critical access hospital (66) | LOC: EMS 09:14 | DX: R53.1 Weakness (principal); R46.89 Other symptoms and signs involving appearance and behavior; R41.0 Disorientation, unspecified | CPT/HCPCS: A0425; A0429 ==

== ENCOUNTER 2022-09-14 09:55 | Inpatient (IN) | payer MEDICARE, OTHER ==
[2022-09-14] MEDS ORDERED: SODIUM CHLORIDE 0.9% 1,000 ML IV STA (10:41)
--- NOTE | 2022-09-14 11:06 | XRAY Report ---
PROCEDURE: Chest 1 View X-Ray INDICATIONS: weakness TECHNIQUE: One view of the chest was acquired. COMPARISON: None. FINDINGS: Surgical changes and devices: None. Lungs and pleura: On the semiupright images, no large pneumothorax or large pleural effusions can be seen. No focal infiltrates are seen. Low lung volumes can be seen, causing a crowded appearance to t he lung markings. Mediastinum: The aorta is prominent and tortuous. The cardiac contours are within normal limits. Bones and chest wall: No suspicious bony lesions. Age-appropriate degenerative changes are seen. Overlying soft tissues appear unremarkable. IMPRESSION: Limited portable chest examination, without an acute abnormality identified. Reviewed by: Dhruv Carter MD on 09/14/2022 10:05 AM [facility] Approved by: Dhruv Carter MD on 09/14/2022 10:05 AM [facility] Station ID: [id number]
[2022-09-14 11:35] LABS: BASOPHILS # (AUTO) 0.1 10^3/uL (0.0-0.1); BASOPHILS % (AUTO) 0.4 %; MEAN PLATELET VOLUME 10.2 fL (7.9-10.8); PLT - PLATELET COUNT 238 10^3/uL (130-450)
[2022-09-14 11:37] LABS: EOSINOPHILS # (AUTO) 0.1 10^3/uL (0.0-0.7); HCT - HEMATOCRIT 46.4 % (37.0-47.0); HGB - HEMOGLOBIN 16.5 g/dL (12.0-16.0); LYMPHOCYTES # (AUTO) 1.6 10^3/uL (1.5-3.5); LYMPHOCYTES % (AUTO) 11.9 %; MEAN CORPUSCULAR HEMOGLOBIN 28.8 pg (27.0-31.0); MEAN CORPUSCULAR HGB CONC 35.6 g/dL (32.0-36.0); MEAN CORPUSCULAR VOLUME 81.1 fL (81.0-99.0); MONOCYTES % (AUTO) 7.4 %; NEUTROPHILS # (AUTO) 10.6 10^3/uL (1.5-6.6); NEUTROPHILS % (AUTO) 78.8 %; RED BLOOD COUNT 5.72 10^6/uL (4.20-5.40); RED CELL DISTRIBUTION WIDTH 13.5 % (12.0-15.0); WHITE BLOOD COUNT 13.5 x10^3/uL (4.8-10.8)
--- NOTE | 2022-09-14 11:40 | ED Physician Documentation ---
History of Present Illness - Stated complaint Stated Complaint: GLF - Chief complaint Chief Complaint: General - History obtained from History obtained from: Patient, EMS - Additonal information Additional information: Patient is a 67-year-old female presenting for evaluation of unwitnessed fall and possible syncope. Patient states that she was in her bathroom and next thing she remembers is being on the floor. She crawled to the front door. She did call EMS. She is unsure of what could have caused her to blackout but feels certain that she did. She is unsure if she hit her head. She reports feeling generalized weakness but denies any specific areas of pain.Patient has been seen here recently for work-up of strokelike symptoms and mental health concerns.She was to go live with some friends in [place] but decided not to do that for unclear reasons.She has recently had an inpatient stay at a psychiatric facility but is unclear what her diagnoses were. She states that she has not been taking her medications and again it is unclear as to why. Review of Systems Constitutional: denies: Fever Nose: denies: Congestion Cardiac: denies: Chest pain / pressure Respiratory: denies: Dyspnea GI: denies: Abdominal Pain Musculoskeletal: denies: Back pain Neurologic: reports: Generalized weakness, Syncope PD PAST MEDICAL HISTORY - Past Medical History Past Medical History: Yes Neuro: Dementia Endocrine/Autoimmune: Type 2 diabetes Psych: Anxiety - Past Surgical History Past Surgical History: No - Present Medications Home Medications: Ambulatory Orders Medication Instructions Recorded Confirmed Lisinopril [Zestril] 10 mg PO DAILY #30 tablet 08/06/22 OLANZapine [Zyprexa] 2.5 mg PO BID #60 tablet 08/08/22 cephALEXin [Keflex] 500 mg PO BID #14 cap 08/09/22 OLANZapine [Zyprexa] 2.5 mg PO BID #20 tablet 08/30/22 Aspirin [[place] Aspirin] 81 mg PO DAILY #30 ea 09/02/22 Atorvastatin [Lipitor] 20 mg PO DAILY #30 tablet 09/02/22 Clopidogrel [Plavix] 75 mg PO DAILY #30 tablet 09/02/22 - Allergies Allergies/Adverse Reactions: Allergies Allergy/AdvReac Type Severity Reaction Status Date / Time No Known Drug Allergies Allergy Verified 09/14/22 10:13 - Social History Does the pt smoke?: No Smoking Status: Never smoker Does the pt drink ETOH?: No Does the pt have substance abuse?: No - Immunizations Immunizations are current?: No - POLST Patient has POLST: No PD ED PE NORMAL - General General: Alert and oriented X 3, No acute distress, Well developed/nourished - HEENT HEENT: Atraumatic, Moist mucous membranes - Neck Neck: Supple, no meningeal sign, No bony TTP, C-Spine cleared by NEXUS criteria - Cardiac Cardiac: RRR, Strong equal pulses - Respiratory Respiratory: No respiratory distress, Clear bilaterally - Abdomen Abdomen: Soft, Non tender - Derm Derm: Warm and dry - Extremities Extremities: No deformity - Neuro Neuro: Alert and oriented X 3, steward/stewardess second 2-12 intact, No motor deficit, No sensory deficit, Normal speech - Psych Psych: Other (Hyperverbal, very tangential but is directable) Results - Vitals Vitals: Vital Signs - 24 hr 09/14/22 10:09 Temperature 35.7 C L Heart Rate 76 Respiratory 12 Rate Blood Pressure 141/55 H O2 Saturation 95 Oxygen O2 Source Room air - EKG (time done) 1029 Rate: Rate (enter#) (71) Rhythm: NSR Intervals: Prolonged QT (538) - Labs Labs: Laboratory Tests 09/14/22 09/14/22 09/14/22 11:30 11:30 13:00 WBC 13.5 H RBC 5.72 H Hgb 16.5 H Hct 46.4 MCV 81.1 MCH 28.8 MCHC 35.6 RDW 13.5 Plt Count 238 MPV 10.2 Neut # (Auto) 10.6 H Lymph # (Auto) 1.6 [place] # (Auto) 1.0 Eos # (Auto) 0.1 Baso # (Auto) 0.1 Absolute Nucleated RBC 0.00 Band Neuts % (Manual) Not Reportable Abnorm Lymph % (Manual) Not Reportable Nucleated RBC % 0.0 Neutrophils # (Manual) Not Reportable Lymphocytes # (Manual) Not Reportable Monocytes # (Manual) Not Reportable Eosinophils # (Manual) Not Reportable Basophils # (Manual) Not Reportable Differential Comment MANUAL=AUTO DIFF Platelet Estimate NORMAL (130-450,000) Platelet Morphology NORMAL APPEARANCE RBC Morph Micro Appear NORMAL APPEARANCE Sodium 124 L Potassium 3.1 L Chloride 83 L Carbon Dioxide 23 Anion Gap 18.0 H BUN 42 H Creatinine 1.8 H Estimated GFR (MDRD) 28 L Glucose 99 Calcium 9.7 Total Bilirubin 1.3 H AST 41 ALT 32 Alkaline Phosphatase 79 Total Creatine Kinase 467 H Total Protein 8.0 Albumin 4.3 Globulin 3.7 Albumin/Globulin Ratio 1.2 Lipase 44 Urine Color YELLOW Urine Clarity HAZY Urine pH 6.0 Ur Specific [place] 1.020 Urine Protein NEGATIVE Urine Glucose (UA) NEGATIVE Urine Ketones TRACE Urine Occult Blood TRACE-INTA Urine Nitrite POSITIVE H Urine Bilirubin NEGATIVE Urine Urobilinogen 0.2 (NORMAL) Ur Leukocyte Esterase SMALL H Urine RBC 0-5 Urine WBC 6-10 H Ur Squamous Epith Cells RARE Squamous Urine Bacteria Few Ur Microscopic Review INDICATED Urine Culture Comments INDICATED Ethyl Alcohol < 5.0 PD MEDICAL DECISION MAKING - ED course Complexity details: reviewed results, re-evaluated patient, d/w patient ED course: Patient presenting for evaluation after Syncopal episode. Unclear story. EKG is reviewed and a sinus rhythm. Labs are reviewed With hyponatremia which is new for patient. Patient denies chest pain or other symptoms that suggest ACS. CT brain is negative and there are no focal deficits. She has had a recent stroke work-ups with findings of carotid stenosis. She has not been compliant with her medications. Discussed the case with hospitalist service who graciously agrees to bring the patient in for observation for her syncope. Departure - Departure Disposition: ED Place in Observation Clinical Impression: Hyponatremia Syncope Qualifiers: Syncope type: unspecified Qualified Code(s): R55 - Syncope and collapse Condition: Stable Discharge Date/Time: 09/14/22 14:12
[2022-09-14 11:48] LABS: ALBUMIN 4.3 g/dL (3.2-5.5); ALBUMIN/GLOBULIN RATIO 1.2 (1.0-2.2); ALKALINE PHOSPHATASE 79 IU/L (42-121); ALT ALANINE AMINOTRANSFERASE 32 IU/L (10-60); AST ASPARTATE AMINOTRANSFERASE 41 IU/L (10-42); BILIRUBIN,TOTAL 1.3 mg/dL (0.2-1.0); BUN - BLOOD UREA NITROGEN 42 mg/dL (6-20); CALCIUM 9.7 mg/dL (8.5-10.3); CARBON DIOXIDE - CO2 23 mmol/L (21-32); CHLORIDE 83 mmol/L (101-111); CK- CREATINE KINASE 467 IU/L (22-269); CREATININE 1.8 mg/dL (0.4-1.0); ETOH - ETHANOL < 5.0 mg/dL; GFR - MDRD 28 (>89); GLUCOSE 99 mg/dL (70-100); LIPASE 44 U/L (22-51); POTASSIUM 3.1 mmol/L (3.5-5.0); SODIUM 124 mmol/L (135-145)
[2022-09-14 11:56] LABS: DIFFERENTIAL COMMENT MANUAL=AUTO DIFF; PLATELET ESTIMATE, MANUAL NORMAL (130-450,000) (NORMAL); PLATELET MORPHOLOGY NORMAL APPEARANCE (NORMAL); RBC MORPHOLOGY (MULTIPLE) NORMAL APPEARANCE (NORMAL)
--- NOTE | 2022-09-14 12:43 | CT Report ---
PROCEDURE: HEAD WO INDICATIONS: fall/weakness TECHNIQUE: Noncontrast 4.5 mm thick angled axial sections acquired from the foramen magnum to the vertex. For r adiation dose reduction, the following was used: automated exposure control, adjustment of mA and/or kV according to patient size. COMPARISON: 09/02/2022, 08/21/2022, 08/06/2022. Correlation is also made with prior brain MRI, 08/06/20. FINDINGS: Image quality: Excellent. CSF spaces: Basal cisterns are patent. No extra-axial fluid collections. Ventricles are normal in size and shape. Brain: No midline shift. No intracranial masses or hemorrhage. Gonzalez-white matter interface is norm al. Age-appropriate brain parenchymal volume loss and chronic small vessel ischemic change can be se en. A prior left hutchinson radiata infarct is seen. Skull and face: Calvarium and visualized facial bones are intact, without suspicious lesions. Sinuses: Visualized sinuses and mastoids are clear. IMPRESSION: Stable intracranial study, without acute hemorrhage or other significant acute intracranial abnormali ty. There is a stable left hutchinson radiata infarction seen. Reviewed by: Dhruv Carter MD on 09/14/2022 11:41 AM [facility] Approved by: Dhruv Carter MD on 09/14/2022 11:41 AM [facility] Station ID: [id number]
[2022-09-14] MEDS ORDERED: POTASSIUM CHLORIDE 20 MEQ TABLET PO STA (12:50)
[2022-09-14] MEDS ORDERED: ONDANSETRON ODT 4 MG TABLET TL PRN (13:08)
[2022-09-14] MEDS ORDERED: oxyCODONE 5 MG TABLET PO PRN (13:08)
[2022-09-14] MEDS ORDERED: SODIUM CHLORIDE FLUSH 0.9% 10 ML SYRINGE IVP PRN (13:08)
[2022-09-14] MEDS ORDERED: MORPHINE 2 MG/ML CARPUJECT IVP PRN (13:08)
[2022-09-14] MEDS ORDERED: ONDANSETRON 4 MG/2 ML VIAL IVP PRN (13:08)
[2022-09-14 13:32] LABS: BILIRUBIN,URINE NEGATIVE (NEGATIVE); GLUCOSE, URINE (UA) NEGATIVE (NEGATIVE); KETONES,URINE (UA) TRACE mg/dL (NEGATIVE); LEUKOCYTE ESTERASE, URINE SMALL (NEGATIVE); NITRITE,URINE POSITIVE (NEGATIVE); OCCULT BLOOD,URINE TRACE-INTA (NEGATIVE); PROTEIN,URINE NEGATIVE (NEGATIVE); UROBILINOGEN,URINE 0.2 (NORMAL) E.U./dL (NORMAL)
[2022-09-14 13:34] LABS: CLARITY,URINE HAZY (CLEAR)
[2022-09-14] MEDS: SODIUM CHLORIDE 0.9% 1,000 ML IV SCH ×2 (13:37→23:27)
[2022-09-14 13:39] LABS: BACTERIA,URINE Few /HPF (None Seen); RBC,URINE 0-5 /HPF (0-5); SQUAMOUS EPITHELIAL CELL,UR RARE Squamous (<= Few)
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
[2022-09-14] MEDS ORDERED: ZINC OXIDE 20% OINT 30 GM TUBE TOP ONE (14:16)
[2022-09-14] MEDS: ZINC OXIDE 20% OINT 30 GM TUBE TOP PRN ×2 (15:30→23:27)
[2022-09-14] MEDS: ACETAMINOPHEN 325 MG TABLET PO PRN (17:08)
[2022-09-14 18:24] LABS: CALCIUM 8.9 mg/dL (8.5-10.3); CREATININE 1.7 mg/dL (0.4-1.0); POTASSIUM 3.2 mmol/L (3.5-5.0)
[2022-09-14] MEDS: OLANZapine ODT 5 MG TABLET TL SCH (20:43)
[2022-09-14] MEDS: SODIUM CHLORIDE FLUSH 0.9% 10 ML SYRINGE IVP SCH ×2 (20:45→23:28)
[2022-09-15 06:09] LABS: BASOPHILS # (AUTO) 0.1 10^3/uL (0.0-0.1); BASOPHILS % (AUTO) 0.9 %; EOSINOPHILS % (AUTO) 0.4 %; HCT - HEMATOCRIT 43.7 % (37.0-47.0); HGB - HEMOGLOBIN 14.6 g/dL (12.0-16.0); LYMPHOCYTES # (AUTO) 1.7 10^3/uL (1.5-3.5); LYMPHOCYTES % (AUTO) 18.6 %; MEAN CORPUSCULAR HGB CONC 33.4 g/dL (32.0-36.0); MEAN CORPUSCULAR VOLUME 83.9 fL (81.0-99.0); MEAN PLATELET VOLUME 9.6 fL (7.9-10.8); MONOCYTES % (AUTO) 10.8 %; NEUTROPHILS # (AUTO) 6.2 10^3/uL (1.5-6.6); PLT - PLATELET COUNT 217 10^3/uL (130-450); RED BLOOD COUNT 5.21 10^6/uL (4.20-5.40); RED CELL DISTRIBUTION WIDTH 13.9 % (12.0-15.0); WHITE BLOOD COUNT 8.9 x10^3/uL (4.8-10.8)
[2022-09-15 06:24] LABS: CALCIUM 8.8 mg/dL (8.5-10.3); CREATININE 1.5 mg/dL (0.4-1.0); POTASSIUM 3.4 mmol/L (3.5-5.0)
[2022-09-15] MEDS: lisinopriL 5 MG TABLET PO SCH (08:21)
[2022-09-15] MEDS: SENNA 8.6 MG TABLET PO SCH (08:21)
[2022-09-15] MEDS: DOCUSATE SODIUM 250 MG CAPSULE PO SCH (08:21)
[2022-09-15] MEDS: polyethylene glycoL 3350 17 GM PACKET PO SCH (08:21)
[2022-09-15] MEDS: ENOXAPARIN 40 MG/0.4 ML SYRINGE SUBQ SCH (08:21)
[2022-09-15] MEDS: CLOPIDOGREL 75 MG TABLET PO SCH (08:22)
[2022-09-15] MEDS: POTASSIUM CHLORIDE 20 MEQ TABLET PO SCH ×2 (08:22→17:03)
[2022-09-15] MEDS: OLANZapine ODT 5 MG TABLET TL SCH ×2 (08:28→21:03)
[2022-09-15] MEDS: SODIUM CHLORIDE FLUSH 0.9% 10 ML SYRINGE IVP SCH ×2 (08:29→17:03)
[2022-09-15] MEDS: ZINC OXIDE 20% OINT 30 GM TUBE TOP PRN (11:32)
--- NOTE | 2022-09-15 13:46 | PHARMACY PROGRESS NOTE ---
- Best Possible Medication History Admit Date and Time: 09/14/22 1300 Processed by: Pharmacy Medication History completed: Yes Patient Interview: Pt unable to participate Secondary Source(s): Physician records, Pharmacy records, Insurance records Patient has been prescribed lisinopril 10 mg daily, olanzapine 2.5 mg bid, atorvastatin 20 mg daily, clopidogrel 75 mg daily, and aspirin 81 mg daily. To date, the patient has not picked up any of these prescriptions at the pharmacy. As the person ultimately responsible for medication therapy, providers are able to order a medication from an existing home medication list in [facility] via the "Reconcile Routine" prior to Confirmation of that medication by technical support coordinator. Such practice is discouraged except when the physician, in their clinical judgment, deems that a medical need exists for a medication without regard to previous use.
[2022-09-15] MEDS: ACETAMINOPHEN 325 MG TABLET PO PRN (15:37)
--- NOTE | 2022-09-15 17:26 | PROVIDER PROGRESS NOTE ---
Progress Note September 15, 2022 5:20 PM Her hyponatremia has improved. She is gone from 124-128 with normal saline. Creatinine is improved and is gone from 1.7-1.5. Urine culture is in process. Overnight there is no fever, no chills. Telemetry did not show any arrhythmias. She has not had several encounters between myself, nursing, and Occupational T herapy. While she is medically stable, her mentation does not allow her to be safe at home. Pharmacy verified her med list. While all of the medications for carotid stenosis and psychosis with Zyprexa were noted in the ambulatory module, her pharmacy confirms that they have received these prescriptions and she is never picked them up. So she has not taken Zyprexa, Plavix, Lipitor, and we cannot confirm the Abilify. Active Medications Acetaminophen (Acetaminophen 325 Mg Tablet) 650 mg PO Q4HR PRN PRN Reason: Pain 1 to 4, or Fever Last Admin: 09/15/22 15:37 Dose: 650 mg Clopidogrel Bisulfate (Clopidogrel 75 Mg Tablet) 75 mg PO DAILY [facility] Last Admin: 09/15/22 08:22 Dose: 75 mg Docusate Sodium (Docusate Sodium 250 Mg Capsule) 250 - 500 mg PO DAILY [facility] Last Admin: 09/15/22 08:21 Dose: 250 mg Enoxaparin Sodium (Enoxaparin 40 Mg/0.4 Ml Syringe) 40 mg SUBQ DAILY [facility] Last Admin: 09/15/22 08:21 Dose: 40 mg Lisinopril (Lisinopril 5 Mg Tablet) 5 mg PO DAILY [facility] Last Admin: 09/15/22 08:21 Dose: 5 mg Morphine Sulfate (Morphine 2 Mg/Ml Carpuject) 2 mg IVP Q2HR PRN PRN Reason: Pain 8 to 10 Multi-Ingredient Ointment (Zinc Oxide 20% Oint 30 Gm Tube) 1 applic TOP PRN PRN PRN Reason: Skin Care Last Admin: 09/15/22 11:32 Dose: 1 applic Olanzapine (Olanzapine Odt 5 Mg Tablet) 2.5 mg TL BID [facility] Last Admin: 09/15/22 08:28 Dose: 2.5 mg Ondansetron HCl (Ondansetron Odt 4 Mg Tablet) 4 mg TL Q6HR PRN PRN Reason: Nausea / Vomiting Ondansetron HCl (Ondansetron 4 Mg/2 Ml Vial) 4 mg IVP Q6HR PRN PRN Reason: Nausea / Vomiting Oxycodone HCl (Oxycodone 5 Mg Tablet) 5 mg PO Q4HR PRN PRN Reason: Pain 5 to 7 Polyethylene Glycol (Polyethylene Glycol 3350 17 Gm Packet) 17 gm PO DAILY [facility] Last Admin: 09/15/22 08:21 Dose: 17 gm Potassium Chloride (Potassium Chloride 20 Meq Tablet) 40 meq PO BIDWM [facility] Stop: 09/16/22 17:01 Last Admin: 09/15/22 17:03 Dose: 40 meq Senna (Senna 8.6 Mg Tablet) 8.6 - 17.2 mg PO DAILY [facility] Last Admin: 09/15/22 08:21 Dose: 8.6 mg Sodium Chloride (Sodium Chloride Flush 0.9% 10 Ml Syringe) 10 ml IVP PRN PRN PRN Reason: NEEDED PER PROVIDER ORDERS Sodium Chloride (Sodium Chloride Flush 0.9% 10 Ml Syringe) 10 ml IVP 0100,0900,1700 [facility] Last Admin: 09/15/22 17:03 Dose: 10 ml No Known Home Medications 09/15/22 Temperature is 36.3. Heart rate is 70. Blood pressure 121/48. Respirations 20. 97% on room air She is 5 feet 4 inches tall, weighs 110.67 kg Middle-aged white female who looks much older than stated age, the top part of her scalp has moderate generalized alopecia Neck is supple without JVD Lungs are clear without increased respiratory effort Regular rate and rhythm Abdomen is soft, nontender, normal bowel sounds Extremities are without edema Sodium 128, potassium 3.4, BUN 40, creatinine 1.5. Random glucose 96. White cell count 8.9. Hemoglobin 14.6. Hematocrit 43.7. Urine culture is in process Assessment/plan 1. Syncope. This patient is such a tangential historian, and very difficult to pin down. Our final assumption was that this woman may have passed out in her bathroom or simply tripped. We may never know. To be safe we admitted her as s yncope. So far telemetry has been negative. 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 Current CT is negative for new infarct. Echocardiogram is not available today and will be available tomorrow. 2. Hypertension. On her usual home dose of Zestril. Blood pressure is occasionally 161 systolic but for the most part stable. No change in medications planned. 3. Carotid stenosis. Resume Lipitor, aspirin and Plavix while she is here 4. Mental health issue. I spoke to social work today. They were in contact with the inpatient psych unit. They feel that she may have some element of memory loss, but in either case, there was no clear psychiatric diagnosis and they discharge her because she was too high level of care to be in an inpatient psych unit. So we have no true diagnosis or help in this arena. She is not able to be safely discharged to home. Social work and case management work on figuring how to get her safely home tomorrow if possible. 5. Dehydration. While I did not think she had dry oral mucosa yesterday, both her hemoglobin and creatinine have improved from yesterday to today. Sodium has also improved with IV hydration. Considering her erratic behavior and lack of insight about taking her medications, I think she most likely has decreased p.o. intake at home.
[2022-09-16 05:13] LABS: BASOPHILS % (AUTO) 0.9 %; EOSINOPHILS % (AUTO) 0.2 %; HCT - HEMATOCRIT 38.9 % (37.0-47.0); HGB - HEMOGLOBIN 13.4 g/dL (12.0-16.0); LYMPHOCYTES # (AUTO) 0.4 10^3/uL (1.5-3.5); LYMPHOCYTES % (AUTO) 9.3 %; MEAN CORPUSCULAR HEMOGLOBIN 28.5 pg (27.0-31.0); MEAN CORPUSCULAR HGB CONC 34.4 g/dL (32.0-36.0); MEAN CORPUSCULAR VOLUME 82.8 fL (81.0-99.0); MEAN PLATELET VOLUME 10.1 fL (7.9-10.8); MONOCYTES # (AUTO) 0.4 10^3/uL (0.0-1.0); NEUTROPHILS # (AUTO) 3.5 10^3/uL (1.5-6.6); NEUTROPHILS % (AUTO) 80.4 %; PLT - PLATELET COUNT 193 10^3/uL (130-450); RED CELL DISTRIBUTION WIDTH 14.3 % (12.0-15.0); WHITE BLOOD COUNT 4.3 x10^3/uL (4.8-10.8)
[2022-09-16] MEDS: CLOPIDOGREL 75 MG TABLET PO SCH (08:37)
[2022-09-16] MEDS: OLANZapine ODT 5 MG TABLET TL SCH ×2 (08:37→20:27)
[2022-09-16] MEDS: POTASSIUM CHLORIDE 20 MEQ TABLET PO SCH ×2 (08:37→16:44)
[2022-09-16] MEDS: SENNA 8.6 MG TABLET PO SCH (08:37)
[2022-09-16] MEDS: lisinopriL 5 MG TABLET PO SCH (08:37)
[2022-09-16] MEDS: DOCUSATE SODIUM 250 MG CAPSULE PO SCH (08:37)
[2022-09-16] MEDS: ENOXAPARIN 40 MG/0.4 ML SYRINGE SUBQ SCH (08:38)
[2022-09-16] MEDS: polyethylene glycoL 3350 17 GM PACKET PO SCH (08:38)
--- NOTE | 2022-09-16 19:14 | PROVIDER PROGRESS NOTE ---
Assessment/Plan - Problem List (1) Syncope Qualifiers: Syncope type: unspecified Qualified Code(s): R55 - Syncope and collapse Assessment/Plan: This patient is such a tangential historian, and very difficult to pin down. Our final assumption was that this woman may have passed out in her bathroom or simply tripped. We may never know. To be safe we admitted her as syncope. So far telemetry has been negative. 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 Current CT is negative for new infarct. Echocardiogram is still pending 2. Hypertension. On her usual home dose of Zestril. Blood pressure is occasionally 161 systolic but for the most part BP stable. No change in medications planned. 3. Carotid stenosis. Resume Lipitor, aspirin and Plavix while she is here 4. Confusion Social workers were in contact with the inpatient psych unit. They feel that she may have some element of memory loss, but in either case, there was no clear psychiatric diagnosis and they discharge her because she was too high level of care to be in an inpatient psych unit. So we have no true diagnosis or help in this arena. She is not able to be safely discharged to home. Social work and case management work on figuring how to get her safely home tomorrow if possible. 5. Dehydration. While we did not think she had dry oral mucosa at admission, both her hemoglobin and creatinine have improved from yesterday to today. Sodium has also improved with IV hydration. Considering her erratic behavior and lack of insight about taking her medications, I think she most likely has decreased p.o. intake at home. - Current Meds Current Meds: Current Medications Generic Name Dose Route Start Last Admin Trade Name Dayo PRN Reason Stop Dose Admin Acetaminophen 650 mg 09/14/22 13:08 09/15/22 15:37 Acetaminophen 325 Mg Tablet PO 650 mg Q4HR PRN Administration Pain 1 to 4, or Fever Clopidogrel Bisulfate 75 mg 09/15/22 09:00 09/16/22 08:37 Clopidogrel 75 Mg Tablet PO 75 mg DAILY [facility] Administration Docusate Sodium 250 - 500 mg 09/15/22 09:00 09/16/22 08:37 Docusate Sodium 250 Mg Capsule PO 250 mg DAILY [facility] Administration Enoxaparin Sodium 40 mg 09/15/22 09:00 09/16/22 08:38 Enoxaparin 40 Mg/0.4 Ml Syringe SUBQ 40 mg DAILY [facility] Administration Lisinopril 5 mg 09/15/22 09:00 09/16/22 08:37 Lisinopril 5 Mg Tablet PO 5 mg DAILY [facility] Administration Multi-Ingredient Ointment 1 applic 09/14/22 15:28 09/15/22 11:32 Zinc Oxide 20% Oint 30 Gm Tube TOP 1 applic PRN PRN Administration Skin Care Olanzapine 2.5 mg 09/14/22 21:00 09/16/22 08:37 Olanzapine Odt 5 Mg Tablet TL 2.5 mg BID [facility] Administration Polyethylene Glycol 17 gm 09/15/22 09:00 09/16/22 08:38 Polyethylene Glycol 3350 17 Gm Packet PO 17 gm DAILY [facility] Administration Senna 8.6 - 17.2 mg 09/15/22 09:00 09/16/22 08:37 Senna 8.6 Mg Tablet PO 8.6 mg DAILY [facility] Administration - Lab Result Fish Bone Diagrams: 09/16/22 04:35 09/15/22 05:55 Subjective - Subjective Patient Reports: Resting Comfortably, Pain (in L toes with mvm) Objective Vital Signs: Vital Signs - 24 hr 09/16/22 09/16/22 09/16/22 00:00 07:58 08:40 Temperature 36.4 C L 36.7 C Heart Rate [ 82 123 H Brachial] Heart Rate [ 124 H 100 Radial] Respiratory 16 Rate Blood Pressure 148/90 H 120/81 H [Right Brachial artery] O2 Saturation 96 97 09/16/22 16:00 Temperature 37.1 C Heart Rate [ 88 Brachial] Heart Rate [ Radial] Respiratory 18 Rate Blood Pressure 129/77 [Right Brachial artery] O2 Saturation 95 Oxygen O2 Source Room air I&O (Last 24 Hrs): Intake and Output Totals x24h 09/14/22 09/15/22 09/16/22 23:59 23:59 23:59 Intake Total 2343.333 2650 1020 Output Total 50 1700 550 Balance 2293.333 950 470 General: Alert HEENT: EOMI, Mucous membr. moist/pink Neck: Supple, No JVD Neuro: Alert, Disoriented Cardiovascular: No murmurs Respiratory: No respiratory distress, Breath sounds nml Abdomen: Normal bowel sounds, No tenderness Extremities: No clubbing, No edema, No tenderness/swelling - Results Results: Laboratory Results WBC 4.3 x10^3/uL (4.8-10.8) L 09/16/22 04:35 RBC 4.70 10^6/uL (4.20-5.40) 09/16/22 04:35 Hgb 13.4 g/dL (12.0-16.0) 09/16/22 04:35 Hct 38.9 % (37.0-47.0) 09/16/22 04:35 MCV 82.8 fL (81.0-99.0) 09/16/22 04:35 MCH 28.5 pg (27.0-31.0) 09/16/22 04:35 MCHC 34.4 g/dL (32.0-36.0) 09/16/22 04:35 RDW 14.3 % (12.0-15.0) 09/16/22 04:35 Plt Count 193 10^3/uL (130-450) 09/16/22 04:35 MPV 10.1 fL (7.9-10.8) 09/16/22 04:35 Neut # (Auto) 3.5 10^3/uL (1.5-6.6) 09/16/22 04:35 Lymph # (Auto) 0.4 10^3/uL (1.5-3.5) L 09/16/22 04:35 Borden # (Auto) 0.4 10^3/uL (0.0-1.0) 09/16/22 04:35 Eos # (Auto) 0.0 10^3/uL (0.0-0.7) 09/16/22 04:35 Baso # (Auto) 0.0 10^3/uL (0.0-0.1) 09/16/22 04:35 Absolute Nucleated RBC 0.00 x10^3/uL 09/16/22 04:35 Band Neuts % (Manual) Not Reportable 09/14/22 11:30 Abnorm Lymph % (Manual) Not Reportable 09/14/22 11:30 Nucleated RBC % 0.0 /100WBC 09/16/22 04:35 Neutrophils # (Manual) Not Reportable 09/14/22 11:30 Lymphocytes # (Manual) Not Reportable 09/14/22 11:30 Monocytes # (Manual) Not Reportable 09/14/22 11:30 Eosinophils # (Manual) Not Reportable 09/14/22 11:30 Basophils # (Manual) Not Reportable 09/14/22 11:30 Differential Comment MANUAL=AUTO DIFF 09/14/22 11:30 Platelet Estimate NORMAL (130-450,000) (NORMAL) 09/14/22 11:30 Platelet Morphology NORMAL APPEARANCE (NORMAL) 09/14/22 11:30 RBC Morph Micro Appear NORMAL APPEARANCE (NORMAL) 09/14/22 11:30 Sodium 128 mmol/L (135-145) L 09/15/22 05:55 Potassium 3.4 mmol/L (3.5-5.0) L 09/15/22 05:55 Chloride 93 mmol/L (101-111) L 09/15/22 05:55 Carbon Dioxide 24 mmol/L (21-32) 09/15/22 05:55 Anion Gap 11.0 (6-13) 09/15/22 05:55 BUN 40 mg/dL (6-20) H 09/15/22 05:55 Creatinine 1.5 mg/dL (0.4-1.0) H 09/15/22 05:55 Estimated GFR (MDRD) 35 (>89) L 09/15/22 05:55 Glucose 96 mg/dL (70-100) 09/15/22 05:55 Calcium 8.8 mg/dL (8.5-10.3) 09/15/22 05:55 Total Bilirubin 1.3 mg/dL (0.2-1.0) H 09/14/22 11:30 AST 41 IU/L (10-42) 09/14/22 11:30 ALT 32 IU/L (10-60) 09/14/22 11:30 Alkaline Phosphatase 79 IU/L (42-121) 09/14/22 11:30 Total Creatine Kinase 467 IU/L (22-269) H 09/14/22 11:30 Total Protein 8.0 g/dL (6.7-8.2) 09/14/22 11:30 Albumin 4.3 g/dL (3.2-5.5) 09/14/22 11:30 Globulin 3.7 g/dL (2.1-4.2) 09/14/22 11:30 Albumin/Globulin Ratio 1.2 (1.0-2.2) 09/14/22 11:30 Lipase 44 U/L (22-51) 09/14/22 11:30 Urine Color YELLOW 09/14/22 13:00 Urine Clarity HAZY (CLEAR) 09/14/22 13:00 Urine pH 6.0 PH (5.0-7.5) 09/14/22 13:00 Ur Specific [place] 1.020 (1.002-1.030) 09/14/22 13:00 Urine Protein NEGATIVE mg/dL (NEGATIVE) 09/14/22 13:00 Urine Glucose (UA) NEGATIVE mg/dL (NEGATIVE) 09/14/22 13:00 Urine Ketones TRACE mg/dL (NEGATIVE) 09/14/22 13:00 Urine Occult Blood TRACE-INTA (NEGATIVE) 09/14/22 13:00 Urine Nitrite POSITIVE (NEGATIVE) H 09/14/22 13:00 Urine Bilirubin NEGATIVE (NEGATIVE) 09/14/22 13:00 Urine Urobilinogen 0.2 (NORMAL) E.U./dL (NORMAL) 09/14/22 13:00 Ur Leukocyte Esterase SMALL (NEGATIVE) H 09/14/22 13:00 Urine RBC 0-5 /HPF (0-5) 09/14/22 13:00 Urine WBC 6-10 /HPF (0-5) H 09/14/22 13:00 Ur Squamous Epith Cells RARE Squamous (<= Few) 09/14/22 13:00 Urine Bacteria Few /HPF (None Seen) 09/14/22 13:00 Ur Microscopic Review INDICATED 09/14/22 13:00 Urine Culture Comments INDICATED 09/14/22 13:00 Ethyl Alcohol < 5.0 mg/dL 09/14/22 11:30 SARS-CoV-2 (PCR) NOT DETECTED 09/14/22 13:16
[2022-09-17] MEDS: lisinopriL 5 MG TABLET PO SCH (08:48)
[2022-09-17] MEDS: CLOPIDOGREL 75 MG TABLET PO SCH (08:48)
[2022-09-17] MEDS: OLANZapine ODT 5 MG TABLET TL SCH ×2 (08:48→21:23)
[2022-09-17] MEDS: SENNA 8.6 MG TABLET PO SCH (08:49)
[2022-09-17] MEDS: ENOXAPARIN 40 MG/0.4 ML SYRINGE SUBQ SCH (08:49)
[2022-09-17] MEDS: polyethylene glycoL 3350 17 GM PACKET PO SCH (08:49)
[2022-09-17] MEDS: DOCUSATE SODIUM 250 MG CAPSULE PO SCH (08:49)
[2022-09-17] MEDS ORDERED: ZINC OXIDE 20% OINT 30 GM TUBE TOP PRN (10:53)
--- NOTE | 2022-09-17 16:28 | PROVIDER PROGRESS NOTE ---
Assessment/Plan - Problem List (1) Syncope Qualifiers: Syncope type: unspecified Qualified Code(s): R55 - Syncope and collapse Assessment/Plan: This patient is such a tangential historian, and very difficult to pin down. Our final assumption was that this woman may have passed out in her bathroom or simply tripped. We may never know. To be safe we admitted her as syncope. So far telemetry has been negative. 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 Current CT is negative for new infarct. Echocardiogram is still pending. Will order orthostatic VS checks. 2. Hypertension. On her usual home dose of Zestril. Blood pressure is occasionally 161 systolic but for the most part BP stable. No change in medications planned. 3. Carotid stenosis. Resuming Lipitor, aspirin and Plavix while she is here 4. Confusion The patient is tangential. Social workers were in contact with the inpatient psych unit. They felt that she may have some element of memory loss, but in ei ther case, there was no clear psychiatric diagnosis and they discharged her because she was too high level of care to be in an inpatient psych unit. So we have no true diagnosis or help in this arena. She is not able to be safely discharged to home. Social work and case management is working on figuring how to get her safely home if possible. 5. Dehydration. While we did not think she had dry oral mucosa at admission, both her hemoglobin and creatinine have improved from yesterday to today. Sodium has also improved with IV hydration. Considering her erratic behavior and lack of insight about taking her medications, I think she most likely has decreased p.o. intake at home. - Current Meds Current Meds: Current Medications Generic Name Dose Route Start Last Admin Trade Name Dayo PRN Reason Stop Dose Admin Acetaminophen 650 mg 09/14/22 13:08 09/15/22 15:37 Acetaminophen 325 Mg Tablet PO 650 mg Q4HR PRN Administration Pain 1 to 4, or Fever Clopidogrel Bisulfate 75 mg 09/15/22 09:00 09/17/22 08:48 Clopidogrel 75 Mg Tablet PO 75 mg DAILY QUINN Administration Docusate Sodium 250 - 500 mg 09/15/22 09:00 09/17/22 08:49 Docusate Sodium 250 Mg Capsule PO Not Given DAILY QUINN Enoxaparin Sodium 40 mg 09/15/22 09:00 09/17/22 08:49 Enoxaparin 40 Mg/0.4 Ml Syringe SUBQ 40 mg DAILY QUINN Administration Lisinopril 5 mg 09/15/22 09:00 09/17/22 08:48 Lisinopril 5 Mg Tablet PO 5 mg DAILY QUINN Administration Multi-Ingredient Ointment 1 applic 09/14/22 15:28 09/15/22 11:32 Zinc Oxide 20% Oint 30 Gm Tube TOP 1 applic PRN PRN Administration Skin Care Olanzapine 2.5 mg 09/14/22 21:00 09/17/22 08:48 Olanzapine Odt 5 Mg Tablet TL 2.5 mg BID QUINN Administration Polyethylene Glycol 17 gm 09/15/22 09:00 09/17/22 08:49 Polyethylene Glycol 3350 17 Gm Packet PO Not Given DAILY QUINN Senna 8.6 - 17.2 mg 09/15/22 09:00 09/17/22 08:49 Senna 8.6 Mg Tablet PO Not Given DAILY QUINN - Lab Result Fish Bone Diagrams: 09/16/22 04:35 09/15/22 05:55 - Additional Planning My Orders: My Active Orders 09/17/22 10:53 Zinc Oxide 20% Oint [Zinc Oxide] 1 applic TOP PRN PRN 09/17/22 11:05 Orthostatic [Vital Signs - Orthostatic] [RC] DAILY Subjective - Subjective Patient Reports: Resting Comfortably Nursing Reports: Other (She had cognitive eval and tested 08/01.) Objective Vital Signs: Vital Signs - 24 hr 09/17/22 09/17/22 00:00 08:02 Temperature 36.9 C 36.5 C Heart Rate [ 73 Brachial] Heart Rate [ 84 Radial] Respiratory 16 18 Rate Blood Pressure 143/83 H 144/91 H [Right Brachial artery] O2 Saturation 100 100 Oxygen O2 Source Room air I&O (Last 24 Hrs): Intake and Output Totals x24h 09/15/22 09/16/22 09/17/22 23:59 23:59 23:59 Intake Total 2650 1320 880 Output Total 1700 550 500 Balance 950 770 380 General: Alert HEENT: EOMI, Mucous membr. moist/pink Neck: Supple, No JVD Neuro: Alert, Disoriented, Other (Poor memory. Tangential when speaking) Cardiovascular: No murmurs Respiratory: No respiratory distress Abdomen: No tenderness Extremities: No clubbing, No edema, No tenderness/swelling - Results Results: Laboratory Results WBC 4.3 x10^3/uL (4.8-10.8) L 09/16/22 04:35 RBC 4.70 10^6/uL (4.20-5.40) 09/16/22 04:35 Hgb 13.4 g/dL (12.0-16.0) 09/16/22 04:35 Hct 38.9 % (37.0-47.0) 09/16/22 04:35 MCV 82.8 fL (81.0-99.0) 09/16/22 04:35 MCH 28.5 pg (27.0-31.0) 09/16/22 04:35 MCHC 34.4 g/dL (32.0-36.0) 09/16/22 04:35 RDW 14.3 % (12.0-15.0) 09/16/22 04:35 Plt Count 193 10^3/uL (130-450) 09/16/22 04:35 MPV 10.1 fL (7.9-10.8) 09/16/22 04:35 Neut # (Auto) 3.5 10^3/uL (1.5-6.6) 09/16/22 04:35 Lymph # (Auto) 0.4 10^3/uL (1.5-3.5) L 09/16/22 04:35 [place] # (Auto) 0.4 10^3/uL (0.0-1.0) 09/16/22 04:35 Eos # (Auto) 0.0 10^3/uL (0.0-0.7) 09/16/22 04:35 Baso # (Auto) 0.0 10^3/uL (0.0-0.1) 09/16/22 04:35 Absolute Nucleated RBC 0.00 x10^3/uL 09/16/22 04:35 Band Neuts % (Manual) Not Reportable 09/14/22 11:30 Abnorm Lymph % (Manual) Not Reportable 09/14/22 11:30 Nucleated RBC % 0.0 /100WBC 09/16/22 04:35 Neutrophils # (Manual) Not Reportable 09/14/22 11:30 Lymphocytes # (Manual) Not Reportable 09/14/22 11:30 Monocytes # (Manual) Not Reportable 09/14/22 11:30 Eosinophils # (Manual) Not Reportable 09/14/22 11:30 Basophils # (Manual) Not Reportable 09/14/22 11:30 Differential Comment MANUAL=AUTO DIFF 09/14/22 11:30 Platelet Estimate NORMAL (130-450,000) (NORMAL) 09/14/22 11:30 Platelet Morphology NORMAL APPEARANCE (NORMAL) 09/14/22 11:30 RBC Morph Micro Appear NORMAL APPEARANCE (NORMAL) 09/14/22 11:30 Sodium 128 mmol/L (135-145) L 09/15/22 05:55 Potassium 3.4 mmol/L (3.5-5.0) L 09/15/22 05:55 Chloride 93 mmol/L (101-111) L 09/15/22 05:55 Carbon Dioxide 24 mmol/L (21-32) 09/15/22 05:55 Anion Gap 11.0 (6-13) 09/15/22 05:55 BUN 40 mg/dL (6-20) H 09/15/22 05:55 Creatinine 1.5 mg/dL (0.4-1.0) H 09/15/22 05:55 Estimated GFR (MDRD) 35 (>89) L 09/15/22 05:55 Glucose 96 mg/dL (70-100) 09/15/22 05:55 Calcium 8.8 mg/dL (8.5-10.3) 09/15/22 05:55 Total Bilirubin 1.3 mg/dL (0.2-1.0) H 09/14/22 11:30 AST 41 IU/L (10-42) 09/14/22 11:30 ALT 32 IU/L (10-60) 09/14/22 11:30 Alkaline Phosphatase 79 IU/L (42-121) 09/14/22 11:30 Total Creatine Kinase 467 IU/L (22-269) H 09/14/22 11:30 Total Protein 8.0 g/dL (6.7-8.2) 09/14/22 11:30 Albumin 4.3 g/dL (3.2-5.5) 09/14/22 11:30 Globulin 3.7 g/dL (2.1-4.2) 09/14/22 11:30 Albumin/Globulin Ratio 1.2 (1.0-2.2) 09/14/22 11:30 Lipase 44 U/L (22-51) 09/14/22 11:30 Urine Color YELLOW 09/14/22 13:00 Urine Clarity HAZY (CLEAR) 09/14/22 13:00 Urine pH 6.0 PH (5.0-7.5) 09/14/22 13:00 Ur Specific [place] 1.020 (1.002-1.030) 09/14/22 13:00 Urine Protein NEGATIVE mg/dL (NEGATIVE) 09/14/22 13:00 Urine Glucose (UA) NEGATIVE mg/dL (NEGATIVE) 09/14/22 13:00 Urine Ketones TRACE mg/dL (NEGATIVE) 09/14/22 13:00 Urine Occult Blood TRACE-INTA (NEGATIVE) 09/14/22 13:00 Urine Nitrite POSITIVE (NEGATIVE) H 09/14/22 13:00 Urine Bilirubin NEGATIVE (NEGATIVE) 09/14/22 13:00 Urine Urobilinogen 0.2 (NORMAL) E.U./dL (NORMAL) 09/14/22 13:00 Ur Leukocyte Esterase SMALL (NEGATIVE) H 09/14/22 13:00 Urine RBC 0-5 /HPF (0-5) 09/14/22 13:00 Urine WBC 6-10 /HPF (0-5) H 09/14/22 13:00 Ur Squamous Epith Cells RARE Squamous (<= Few) 09/14/22 13:00 Urine Bacteria Few /HPF (None Seen) 09/14/22 13:00 Ur Microscopic Review INDICATED 09/14/22 13:00 Urine Culture Comments INDICATED 09/14/22 13:00 Ethyl Alcohol < 5.0 mg/dL 09/14/22 11:30 SARS-CoV-2 (PCR) NOT DETECTED 09/14/22 13:16
[2022-09-17] MEDS: ZINC OXIDE 20% OINT 30 GM TUBE TOP PRN (17:54)
[2022-09-18] MEDS: ENOXAPARIN 40 MG/0.4 ML SYRINGE SUBQ SCH (09:20)
[2022-09-18] MEDS: CLOPIDOGREL 75 MG TABLET PO SCH (09:20)
[2022-09-18] MEDS: lisinopriL 5 MG TABLET PO SCH (09:21)
[2022-09-18] MEDS: DOCUSATE SODIUM 250 MG CAPSULE PO SCH (09:21)
[2022-09-18] MEDS: OLANZapine ODT 5 MG TABLET TL SCH ×2 (09:27→20:14)
[2022-09-18] MEDS: polyethylene glycoL 3350 17 GM PACKET PO SCH (09:33)
[2022-09-18] MEDS: SENNA 8.6 MG TABLET PO SCH (09:33)
--- NOTE | 2022-09-18 15:28 | PROVIDER PROGRESS NOTE ---
Assessment/Plan - Problem List (1) Syncope Qualifiers: Syncope type: unspecified Qualified Code(s): R55 - Syncope and collapse Assessment/Plan: This patient is such a tangential historian, and very difficult to pin down. Our final assumption was that this woman may have passed out in her bathroom or simply tripped. We may never know. To be safe we admitted her as syncope. So far telemetry has been negative. 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 Current CT is negative for new infarct. Echocardiogram was done and showed normal LVEF of 65% We ordered orthostatic VS checks. 2. Orthostatic hypotension The patient was very orthostatic today: BP supine 142/100, HR 106. BP sitting 155/115, HR 121. BP standing 130/107, HR 144. Orthostasis may have been why she had presumed syncope at home. We thought she was adequately rehydrated but we will give further hydration, including with a saline bolus today, now that we know her EF is normal at 65%. 3. Tachycardia Heart rate is 106 at rest and increases to 144 with standing. When this happened, the patient was not on telemetry (it had been stopped on 09/14), to check if the rhythm had changed during the tachycardia. TAT EKG was obtained, but by that time she was supine and heart rate was 111 and the EKG showed sinus tachycardia. The presumed reason is volume depletion. Will give saline bolus. Resume telemetry 4. Dehydration. While we did not think she had dry oral mucosa at admission, both her hemoglobin and creatinine improved. Sodium has also improved with IV hydration. Considering her erratic behavior and lack of insight about taking her medications, I think she most likely has decreased p.o. intake at home. Will treat as in #2 #3 above 5. Hypertension. On her usual home dose of Zestril. Blood pressure is occasionally 161 systolic but for the most part BP stable. No change in medications planned. 6. Carotid stenosis. Resumed Lipitor, aspirin and Plavix while she is here 7. Confusion The patient is tangential when speaking. She tested 08/01 on a [facility] conitive eval. Social workers were in contact with the inpatient psych unit. They felt that she may have some element of memory loss, but in either case, there was no clear psychiatric diagnosis and they discharged her because she was too high level of care to be in an inpatient psych unit. So we have no true diagnosis or help in this arena. She is not able to be safely discharged to home. Social work and case management is working on finding a location for a safe discharge. This may invilve establishing a guardian if she does not have a DPOA. - Current Meds Current Meds: Current Medications Generic Name Dose Route Start Last Admin Trade Name Freq PRN Reason Stop Dose Admin Acetaminophen 650 mg 09/14/22 13:08 09/15/22 15:37 Acetaminophen 325 Mg Tablet PO 650 mg Q4HR PRN Administration Pain 1 to 4, or Fever Clopidogrel Bisulfate 75 mg 09/15/22 09:00 09/18/22 09:20 Clopidogrel 75 Mg Tablet PO 75 mg DAILY QUINN Administration Docusate Sodium 250 - 500 mg 09/15/22 09:00 09/18/22 09:21 Docusate Sodium 250 Mg Capsule PO Not Given DAILY QUINN Lisinopril 5 mg 09/15/22 09:00 09/18/22 09:21 Lisinopril 5 Mg Tablet PO 5 mg DAILY QUINN Administration Multi-Ingredient Ointment 1 applic 09/14/22 15:28 09/17/22 17:54 Zinc Oxide 20% Oint 30 Gm Tube TOP 1 applic PRN PRN Administration Skin Care Olanzapine 2.5 mg 09/14/22 21:00 09/18/22 09:27 Olanzapine Odt 5 Mg Tablet TL 2.5 mg BID QUINN Administration Ondansetron HCl 4 mg 09/14/22 13:08 09/17/22 17:54 Ondansetron Odt 4 Mg Tablet TL 4 mg Q6HR PRN Administration Nausea / Vomiting Polyethylene Glycol 17 gm 09/15/22 09:00 09/18/22 09:33 Polyethylene Glycol 3350 17 Gm Packet PO Not Given DAILY QUINN Senna 8.6 - 17.2 mg 09/15/22 09:00 09/18/22 09:33 Senna 8.6 Mg Tablet PO Not Given DAILY QUINN - Lab Result Fish Bone Diagrams: 09/16/22 04:35 09/15/22 05:55 - Additional Planning My Orders: My Active Orders 09/18/22 11:34 SCDs [RC] QSHIFT 09/18/22 12:38 Telemetry- [RC] Q4HR Subjective - Subjective Patient Reports: Resting Comfortably, No Complaints Objective Vital Signs: Vital Signs - 24 hr 09/17/22 09/18/22 09/18/22 16:00 00:00 08:38 Temperature 36.5 C 36.5 C 36.7 C Heart Rate [ 78 Brachial] Heart Rate [ 83 89 Radial] Respiratory 16 12 16 Rate Blood Pressure 147/91 H 146/89 H 157/93 H [Right Brachial artery] O2 Saturation 96 98 98 Oxygen O2 Source Room air I&O (Last 24 Hrs): Intake and Output Totals x24h 09/16/22 09/17/22 09/18/22 23:59 23:59 23:59 Intake Total 1320 1120 710 Output Total 550 750 900 Balance 770 370 -190 General: Alert, No acute distress HEENT: EOMI, Mucous membr. moist/pink Neck: Supple, Other (Obese and cannot evaluate JVP) Neuro: Alert, Disoriented, Non Focal Cardiovascular: Regular rate, No murmurs Respiratory: No respiratory distress Abdomen: Soft, Other (Obese with pannus) Extremities: No clubbing, No edema - Results Results: Laboratory Results WBC 4.3 x10^3/uL (4.8-10.8) L 09/16/22 04:35 RBC 4.70 10^6/uL (4.20-5.40) 09/16/22 04:35 Hgb 13.4 g/dL (12.0-16.0) 09/16/22 04:35 Hct 38.9 % (37.0-47.0) 09/16/22 04:35 MCV 82.8 fL (81.0-99.0) 09/16/22 04:35 MCH 28.5 pg (27.0-31.0) 09/16/22 04:35 MCHC 34.4 g/dL (32.0-36.0) 09/16/22 04:35 RDW 14.3 % (12.0-15.0) 09/16/22 04:35 Plt Count 193 10^3/uL (130-450) 09/16/22 04:35 MPV 10.1 fL (7.9-10.8) 09/16/22 04:35 Neut # (Auto) 3.5 10^3/uL (1.5-6.6) 09/16/22 04:35 Lymph # (Auto) 0.4 10^3/uL (1.5-3.5) L 09/16/22 04:35 [place] # (Auto) 0.4 10^3/uL (0.0-1.0) 09/16/22 04:35 Eos # (Auto) 0.0 10^3/uL (0.0-0.7) 09/16/22 04:35 Baso # (Auto) 0.0 10^3/uL (0.0-0.1) 09/16/22 04:35 Absolute Nucleated RBC 0.00 x10^3/uL 09/16/22 04:35 Band Neuts % (Manual) Not Reportable 09/14/22 11:30 Abnorm Lymph % (Manual) Not Reportable 09/14/22 11:30 Nucleated RBC % 0.0 /100WBC 09/16/22 04:35 Neutrophils # (Manual) Not Reportable 09/14/22 11:30 Lymphocytes # (Manual) Not Reportable 09/14/22 11:30 Monocytes # (Manual) Not Reportable 09/14/22 11:30 Eosinophils # (Manual) Not Reportable 09/14/22 11:30 Basophils # (Manual) Not Reportable 09/14/22 11:30 Differential Comment MANUAL=AUTO DIFF 09/14/22 11:30 Platelet Estimate NORMAL (130-450,000) (NORMAL) 09/14/22 11:30 Platelet Morphology NORMAL APPEARANCE (NORMAL) 09/14/22 11:30 RBC Morph Micro Appear NORMAL APPEARANCE (NORMAL) 09/14/22 11:30 Sodium 128 mmol/L (135-145) L 09/15/22 05:55 Potassium 3.4 mmol/L (3.5-5.0) L 09/15/22 05:55 Chloride 93 mmol/L (101-111) L 09/15/22 05:55 Carbon Dioxide 24 mmol/L (21-32) 09/15/22 05:55 Anion Gap 11.0 (6-13) 09/15/22 05:55 BUN 40 mg/dL (6-20) H 09/15/22 05:55 Creatinine 1.5 mg/dL (0.4-1.0) H 09/15/22 05:55 Estimated GFR (MDRD) 35 (>89) L 09/15/22 05:55 Glucose 96 mg/dL (70-100) 09/15/22 05:55 Calcium 8.8 mg/dL (8.5-10.3) 09/15/22 05:55 Total Bilirubin 1.3 mg/dL (0.2-1.0) H 09/14/22 11:30 AST 41 IU/L (10-42) 09/14/22 11:30 ALT 32 IU/L (10-60) 09/14/22 11:30 Alkaline Phosphatase 79 IU/L (42-121) 09/14/22 11:30 Total Creatine Kinase 467 IU/L (22-269) H 09/14/22 11:30 Total Protein 8.0 g/dL (6.7-8.2) 09/14/22 11:30 Albumin 4.3 g/dL (3.2-5.5) 09/14/22 11:30 Globulin 3.7 g/dL (2.1-4.2) 09/14/22 11:30 Albumin/Globulin Ratio 1.2 (1.0-2.2) 09/14/22 11:30 Lipase 44 U/L (22-51) 09/14/22 11:30 Urine Color YELLOW 09/14/22 13:00 Urine Clarity HAZY (CLEAR) 09/14/22 13:00 Urine pH 6.0 PH (5.0-7.5) 09/14/22 13:00 Ur Specific [place] 1.020 (1.002-1.030) 09/14/22 13:00 Urine Protein NEGATIVE mg/dL (NEGATIVE) 09/14/22 13:00 Urine Glucose (UA) NEGATIVE mg/dL (NEGATIVE) 09/14/22 13:00 Urine Ketones TRACE mg/dL (NEGATIVE) 09/14/22 13:00 Urine Occult Blood TRACE-INTA (NEGATIVE) 09/14/22 13:00 Urine Nitrite POSITIVE (NEGATIVE) H 09/14/22 13:00 Urine Bilirubin NEGATIVE (NEGATIVE) 09/14/22 13:00 Urine Urobilinogen 0.2 (NORMAL) E.U./dL (NORMAL) 09/14/22 13:00 Ur Leukocyte Esterase SMALL (NEGATIVE) H 09/14/22 13:00 Urine RBC 0-5 /HPF (0-5) 09/14/22 13:00 Urine WBC 6-10 /HPF (0-5) H 09/14/22 13:00 Ur Squamous Epith Cells RARE Squamous (<= Few) 09/14/22 13:00 Urine Bacteria Few /HPF (None Seen) 09/14/22 13:00 Ur Microscopic Review INDICATED 09/14/22 13:00 Urine Culture Comments INDICATED 09/14/22 13:00 Ethyl Alcohol < 5.0 mg/dL 09/14/22 11:30 SARS-CoV-2 (PCR) NOT DETECTED 09/14/22 13:16
[2022-09-18] MEDS: ZINC OXIDE 20% OINT 30 GM TUBE TOP PRN (18:58)
[2022-09-19] MEDS: ZINC OXIDE 20% OINT 30 GM TUBE TOP PRN (00:54)
[2022-09-19] MEDS: SENNA 8.6 MG TABLET PO SCH (09:24)
[2022-09-19] MEDS: OLANZapine ODT 5 MG TABLET TL SCH ×2 (09:24→20:05)
[2022-09-19] MEDS: lisinopriL 5 MG TABLET PO SCH (09:25)
[2022-09-19] MEDS: CLOPIDOGREL 75 MG TABLET PO SCH (09:26)
[2022-09-19] MEDS: polyethylene glycoL 3350 17 GM PACKET PO SCH (09:26)
[2022-09-19] MEDS: DOCUSATE SODIUM 250 MG CAPSULE PO SCH (09:26)
--- NOTE | 2022-09-19 16:25 | PROVIDER PROGRESS NOTE ---
Assessment/Plan - Problem List (1) Syncope Qualifiers: Syncope type: unspecified Qualified Code(s): R55 - Syncope and collapse Assessment/Plan: This patient is such a tangential historian, and very difficult to pin down. Our final assumption was that this woman may have passed out in her bathroom or simply tripped. We may never know. To be safe we admitted her as syncope. So far telemetry has been negative. 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 Current CT is negative for new infarct. Echocardiogram was done and showed normal LVEF of 65% We ordered orthostatic VS checks and they are abnormal. Plan: iv fluids 2. Orthostatic hypotension The patient was very orthostatic on 09/18: BP supine 142/100, HR 106. BP sitting 155/115, HR 121. BP standing 130/107, HR 144. Today the HR romulo from 95 when supine to 125 w/ standing. Orthostasis may have likely been why she had her (presumed) syncope at home. Plan: We will give further hydration, including with a saline bolus today, now that we know her EF is normal at 65%. Monitor orthostatic vital signs daily 3. Tachycardia Heart rate was 106 at rest and increased to 144 with standing on 09/18. When this happened, the patient was not on telemetry (it had been stopped on 09/14), to check if the rhythm had changed during the tachycardia. A STAT EKG was obtained yesterday, but by that time she was supine and heart rate was 111 and the EKG showed sinus tachycardia. The presumed reason is volume depletion. Plan: saline bolus. We resumed [employer] orthostatic vital signs daily 4. Dehydration. While we did not think she had dry oral mucosa at admission, both her hemoglobin and creatinine improved. Sodium has also improved with IV hydration. Considering her erratic behavior and lack of insight about taking her medications, she most likely has decreased p.o. intake at home. Plan: Will treat as in #2 #3 above Follow BMP daily 5. Hypertension. She is on her usual home dose of Zestril. Blood pressure is occasionally 161 systolic but for the most part BP stable. Plan: No change in medications planned. 6. Carotid stenosis. Plan: We resumed Lipitor, aspirin and Plavix while she is here 7. Confusion The patient is tangential when speaking. She tested 08/01 on a [facility] conitive eval. Social workers were in contact with the inpatient psych unit. They felt that she may have some element of memory loss, but in either case, there was no clear psychiatric diagnosis and they discharged her because she was too high level of care to be in an inpatient psych unit. So we have no true diagnosis or help in this arena. Plan: She is not able to be safely discharged to home. Social work and case management is working on finding a location for a safe discharge. This may involve establishing a guardian if she does not have a DPOA. 8. Leg wound Today her RN brought to our attention, for the first time, that the pt has a thick, round, purple elevated lesion on back of L calf. In pictures, it looks like a large blood blister. Pt said she has had it "a while, it is not new". It is slt tender. It is just where her calves hit the foot rest. There is mild redness around it. Plan: will order bandaging, and prop up calves on pillow. Monitor for cellulitis and watch WBC daily. Will consider a MAC Wound consult (but today is Thu, and they are not here until ). - Current Meds Current Meds: Current Medications Generic Name Dose Route Start Last Admin Trade Name Freq PRN Reason Stop Dose Admin Acetaminophen 650 mg 09/14/22 13:08 09/15/22 15:37 Acetaminophen 325 Mg Tablet PO 650 mg Q4HR PRN Administration Pain 1 to 4, or Fever Clopidogrel Bisulfate 75 mg 09/15/22 09:00 09/19/22 09:26 Clopidogrel 75 Mg Tablet PO 75 mg DAILY [facility] Administration Docusate Sodium 250 - 500 mg 09/15/22 09:00 09/19/22 09:26 Docusate Sodium 250 Mg Capsule PO 250 mg DAILY [facility] Administration Lisinopril 5 mg 09/15/22 09:00 09/19/22 09:25 Lisinopril 5 Mg Tablet PO 5 mg DAILY [facility] Administration Multi-Ingredient Ointment 1 applic 09/14/22 15:28 09/19/22 00:54 Zinc Oxide 20% Oint 30 Gm Tube TOP 1 applic PRN PRN Administration Skin Care Olanzapine 2.5 mg 09/14/22 21:00 09/19/22 09:24 Olanzapine Odt 5 Mg Tablet TL 2.5 mg BID [facility] Administration Ondansetron HCl 4 mg 09/14/22 13:08 09/17/22 17:54 Ondansetron Odt 4 Mg Tablet TL 4 mg Q6HR PRN Administration Nausea / Vomiting Polyethylene Glycol 17 gm 09/15/22 09:00 09/19/22 09:26 Polyethylene Glycol 3350 17 Gm Packet PO 17 gm DAILY [facility] Administration Senna 8.6 - 17.2 mg 09/15/22 09:00 09/19/22 09:24 Senna 8.6 Mg Tablet PO 8.6 mg DAILY [facility] Administration - Lab Result Fish Bone Diagrams: 09/16/22 04:35 09/15/22 05:55 Subjective - Subjective Patient Reports: Resting Comfortably, No Complaints Nursing Reports: Other (She worked with PT today. RN described a wound on her L calf.) Objective Vital Signs: Vital Signs - 24 hr 09/18/22 09/19/22 09/19/22 19:16 00:00 00:45 Temperature 36.8 C 36.6 C 36.6 C Heart Rate [ 86 Brachial] Heart Rate [ 78 78 Radial] Respiratory 17 16 16 Rate Blood Pressure 137/80 H 137/80 H [Left Radial artery] Blood Pressure 135/73 H [Right Brachial artery] O2 Saturation 98 88 L 98 09/19/22 09/19/22 09/19/22 08:00 11:50 16:00 Temperature 36.6 C 36.6 C 36.2 C L Heart Rate [ 100 86 Brachial] Heart Rate [ 94 Radial] Respiratory 18 18 18 Rate Blood Pressure [Left Radial artery] Blood Pressure 152/86 H 149/103 H 147/101 H [Right Brachial artery] O2 Saturation 99 98 99 Oxygen O2 Source Room air I&O (Last 24 Hrs): Intake and Output Totals x24h 09/17/22 09/18/22 09/19/22 23:59 23:59 23:59 Intake Total 1120 1300 240 Output Total 750 1350 200 Balance 370 -50 40 General: Alert, Other (Alopecia) HEENT: Mucous membr. moist/pink Neck: Supple, No JVD Neuro: Alert, Disoriented, Non Focal Cardiovascular: Regular rate Respiratory: No respiratory distress Abdomen: Soft, Other (Obese with pannus) Extremities: No clubbing, No edema, Other (Posterior, lower L calf has a hard, raised, round, purple lesion, approx [id number] in size. Non-tender to light palpation, but is tender to deep palpation.) - Results Results: Laboratory Results WBC 4.3 x10^3/uL (4.8-10.8) L 09/16/22 04:35 RBC 4.70 10^6/uL (4.20-5.40) 09/16/22 04:35 Hgb 13.4 g/dL (12.0-16.0) 09/16/22 04:35 Hct 38.9 % (37.0-47.0) 09/16/22 04:35 MCV 82.8 fL (81.0-99.0) 09/16/22 04:35 MCH 28.5 pg (27.0-31.0) 09/16/22 04:35 MCHC 34.4 g/dL (32.0-36.0) 09/16/22 04:35 RDW 14.3 % (12.0-15.0) 09/16/22 04:35 Plt Count 193 10^3/uL (130-450) 09/16/22 04:35 MPV 10.1 fL (7.9-10.8) 09/16/22 04:35 Neut # (Auto) 3.5 10^3/uL (1.5-6.6) 09/16/22 04:35 Lymph # (Auto) 0.4 10^3/uL (1.5-3.5) L 09/16/22 04:35 [place] # (Auto) 0.4 10^3/uL (0.0-1.0) 09/16/22 04:35 Eos # (Auto) 0.0 10^3/uL (0.0-0.7) 09/16/22 04:35 Baso # (Auto) 0.0 10^3/uL (0.0-0.1) 09/16/22 04:35 Absolute Nucleated RBC 0.00 x10^3/uL 09/16/22 04:35 Band Neuts % (Manual) Not Reportable 09/14/22 11:30 Abnorm Lymph % (Manual) Not Reportable 09/14/22 11:30 Nucleated RBC % 0.0 /100WBC 09/16/22 04:35 Neutrophils # (Manual) Not Reportable 09/14/22 11:30 Lymphocytes # (Manual) Not Reportable 09/14/22 11:30 Monocytes # (Manual) Not Reportable 09/14/22 11:30 Eosinophils # (Manual) Not Reportable 09/14/22 11:30 Basophils # (Manual) Not Reportable 09/14/22 11:30 Differential Comment MANUAL=AUTO DIFF 09/14/22 11:30 Platelet Estimate NORMAL (130-450,000) (NORMAL) 09/14/22 11:30 Platelet Morphology NORMAL APPEARANCE (NORMAL) 09/14/22 11:30 RBC Morph Micro Appear NORMAL APPEARANCE (NORMAL) 09/14/22 11:30 Sodium 128 mmol/L (135-145) L 09/15/22 05:55 Potassium 3.4 mmol/L (3.5-5.0) L 09/15/22 05:55 Chloride 93 mmol/L (101-111) L 09/15/22 05:55 Carbon Dioxide 24 mmol/L (21-32) 09/15/22 05:55 Anion Gap 11.0 (6-13) 09/15/22 05:55 BUN 40 mg/dL (6-20) H 09/15/22 05:55 Creatinine 1.5 mg/dL (0.4-1.0) H 09/15/22 05:55 Estimated GFR (MDRD) 35 (>89) L 09/15/22 05:55 Glucose 96 mg/dL (70-100) 09/15/22 05:55 Calcium 8.8 mg/dL (8.5-10.3) 09/15/22 05:55 Total Bilirubin 1.3 mg/dL (0.2-1.0) H 09/14/22 11:30 AST 41 IU/L (10-42) 09/14/22 11:30 ALT 32 IU/L (10-60) 09/14/22 11:30 Alkaline Phosphatase 79 IU/L (42-121) 09/14/22 11:30 Total Creatine Kinase 467 IU/L (22-269) H 09/14/22 11:30 Total Protein 8.0 g/dL (6.7-8.2) 09/14/22 11:30 Albumin 4.3 g/dL (3.2-5.5) 09/14/22 11:30 Globulin 3.7 g/dL (2.1-4.2) 09/14/22 11:30 Albumin/Globulin Ratio 1.2 (1.0-2.2) 09/14/22 11:30 Lipase 44 U/L (22-51) 09/14/22 11:30 Urine Color YELLOW 09/14/22 13:00 Urine Clarity HAZY (CLEAR) 09/14/22 13:00 Urine pH 6.0 PH (5.0-7.5) 09/14/22 13:00 Ur Specific [place] 1.020 (1.002-1.030) 09/14/22 13:00 Urine Protein NEGATIVE mg/dL (NEGATIVE) 09/14/22 13:00 Urine Glucose (UA) NEGATIVE mg/dL (NEGATIVE) 09/14/22 13:00 Urine Ketones TRACE mg/dL (NEGATIVE) 09/14/22 13:00 Urine Occult Blood TRACE-INTA (NEGATIVE) 09/14/22 13:00 Urine Nitrite POSITIVE (NEGATIVE) H 09/14/22 13:00 Urine Bilirubin NEGATIVE (NEGATIVE) 09/14/22 13:00 Urine Urobilinogen 0.2 (NORMAL) E.U./dL (NORMAL) 09/14/22 13:00 Ur Leukocyte Esterase SMALL (NEGATIVE) H 09/14/22 13:00 Urine RBC 0-5 /HPF (0-5) 09/14/22 13:00 Urine WBC 6-10 /HPF (0-5) H 09/14/22 13:00 Ur Squamous Epith Cells RARE Squamous (<= Few) 09/14/22 13:00 Urine Bacteria Few /HPF (None Seen) 09/14/22 13:00 Ur Microscopic Review INDICATED 09/14/22 13:00 Urine Culture Comments INDICATED 09/14/22 13:00 Ethyl Alcohol < 5.0 mg/dL 09/14/22 11:30 SARS-CoV-2 (PCR) NOT DETECTED 09/14/22 13:16
[2022-09-19] MEDS ORDERED: SODIUM CHLORIDE 0.9% 500 ML IV ONE (17:15)
[2022-09-19] MEDS ORDERED: QUEtiapine 25 MG TABLET PO ONE (19:15)
[2022-09-19] MEDS ORDERED: HALOPERIDOL 5 MG/ML VIAL IVP PRN (19:59)
[2022-09-20] MEDS: DOCUSATE SODIUM 250 MG CAPSULE PO SCH (08:13)
[2022-09-20] MEDS: CLOPIDOGREL 75 MG TABLET PO SCH (08:13)
[2022-09-20] MEDS: OLANZapine ODT 5 MG TABLET TL SCH ×2 (08:13→20:13)
[2022-09-20] MEDS: polyethylene glycoL 3350 17 GM PACKET PO SCH (08:13)
[2022-09-20] MEDS: SENNA 8.6 MG TABLET PO SCH (08:13)
[2022-09-20] MEDS: lisinopriL 5 MG TABLET PO SCH (08:14)
[2022-09-20] MEDS: METOPROLOL TARTRATE 25 MG TABLET PO SCH ×2 (12:12→20:13)
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
[2022-09-20] MEDS ORDERED: SODIUM CHLORIDE 0.9% 1,000 ML IV ONE ×2 (16:12→16:13)
[2022-09-20] MEDS: QUEtiapine 100 MG TABLET PO SCH (20:13)
[2022-09-20] MEDS: SULFAMETH/TRIMETH DS 800/160 MG TABLET PO SCH (20:13)
[2022-09-21 05:17] LABS: CALCIUM 9.1 mg/dL (8.5-10.3); CREATININE 1.2 mg/dL (0.4-1.0)
[2022-09-21] MEDS: DOCUSATE SODIUM 250 MG CAPSULE PO SCH (08:23)
[2022-09-21] MEDS: OLANZapine ODT 5 MG TABLET TL SCH ×2 (08:23→21:18)
[2022-09-21] MEDS: SENNA 8.6 MG TABLET PO SCH (08:24)
[2022-09-21] MEDS: CLOPIDOGREL 75 MG TABLET PO SCH (08:24)
[2022-09-21] MEDS: SULFAMETH/TRIMETH DS 800/160 MG TABLET PO SCH ×2 (08:24→21:18)
[2022-09-21] MEDS: METOPROLOL TARTRATE 25 MG TABLET PO SCH ×2 (08:24→21:18)
[2022-09-21] MEDS: polyethylene glycoL 3350 17 GM PACKET PO SCH (08:25)
[2022-09-21] MEDS: lisinopriL 5 MG TABLET PO SCH (08:25)
[2022-09-21] MEDS: QUEtiapine 100 MG TABLET PO SCH (21:19)
[2022-09-22 06:14] LABS: CREATININE 1.4 mg/dL (0.4-1.0)
[2022-09-22] MEDS: SULFAMETH/TRIMETH DS 800/160 MG TABLET PO SCH ×2 (09:13→20:23)
[2022-09-22] MEDS: polyethylene glycoL 3350 17 GM PACKET PO SCH (09:13)
[2022-09-22] MEDS: DOCUSATE SODIUM 250 MG CAPSULE PO SCH ×2 (09:13→20:22)
[2022-09-22] MEDS: METOPROLOL TARTRATE 25 MG TABLET PO SCH ×2 (09:13→20:23)
[2022-09-22] MEDS: lisinopriL 5 MG TABLET PO SCH (09:14)
[2022-09-22] MEDS: CLOPIDOGREL 75 MG TABLET PO SCH (09:14)
[2022-09-22] MEDS: SENNA 8.6 MG TABLET PO SCH ×2 (09:14→20:22)
[2022-09-22] MEDS: OLANZapine ODT 5 MG TABLET TL SCH ×2 (09:14→20:22)
[2022-09-22] MEDS: ZINC OXIDE 20% OINT 30 GM TUBE TOP PRN (10:00)
--- NOTE | 2022-09-22 14:08 | PROVIDER PROGRESS NOTE ---
Subjective - Prog Note Date Prog Note Date: 09/22/22 Prog Note Time: 14:05 - Subjective Pt reports feeling: No change Subjective: Today cherelle has been much more relaxed with less emotional lability. The nurses said she got a lot of sleep last night, previous nights she has not been sleeping well. She is still confused and disoriented but she is not having anxiety attacks, yelling, or inconsolably sobbing. Current Medications - Current Medications Current Medications: Active Medications Acetaminophen (Acetaminophen 325 Mg Tablet) 650 mg PO Q4HR PRN PRN Reason: Pain 1 to 4, or Fever Last Admin: 09/15/22 15:37 Dose: 650 mg Clopidogrel Bisulfate (Clopidogrel 75 Mg Tablet) 75 mg PO DAILY [facility] Last Admin: 09/22/22 09:14 Dose: 75 mg Docusate Sodium (Docusate Sodium 250 Mg Capsule) 250 - 500 mg PO DAILY [facility] Last Admin: 09/22/22 09:13 Dose: 250 mg Haloperidol (Haloperidol 5 Mg/Ml Vial) 1 mg IVP Q12H PRN PRN Reason: Agitation Last Admin: 09/20/22 09:17 Dose: 1 mg Lisinopril (Lisinopril 5 Mg Tablet) 10 mg PO DAILY [facility] Last Admin: 09/22/22 09:14 Dose: 10 mg Metoprolol Tartrate (Metoprolol Tartrate 25 Mg Tablet) 25 mg PO BID [facility] Last Admin: 09/22/22 09:13 Dose: 25 mg Morphine Sulfate (Morphine 2 Mg/Ml Carpuject) 2 mg IVP Q2HR PRN PRN Reason: Pain 8 to 10 Multi-Ingredient Ointment (Zinc Oxide 20% Oint 30 Gm Tube) 1 applic TOP PRN PRN PRN Reason: Skin Care Last Admin: 09/19/22 00:54 Dose: 1 applic Multi-Ingredient Ointment (Zinc Oxide 20% Oint 30 Gm Tube) 1 applic TOP PRN PRN PRN Reason: Skin Care Olanzapine (Olanzapine Odt 5 Mg Tablet) 2.5 mg TL BID [facility] Last Admin: 09/22/22 09:14 Dose: 2.5 mg Oxycodone HCl (Oxycodone 5 Mg Tablet) 5 mg PO Q4HR PRN PRN Reason: Pain 5 to 7 Polyethylene Glycol (Polyethylene Glycol 3350 17 Gm Packet) 17 gm PO DAILY [facility] Last Admin: 09/22/22 09:13 Dose: 17 gm Quetiapine Fumarate (Quetiapine 100 Mg Tablet) 100 mg PO QPM [facility] Last Admin: 09/21/22 21:19 Dose: 100 mg Senna (Senna 8.6 Mg Tablet) 8.6 - 17.2 mg PO DAILY [facility] Last Admin: 09/22/22 09:14 Dose: 8.6 mg Trimethoprim/Sulfamethoxazole (Sulfameth/Trimeth Ds 800/160 Mg Tablet) 1 tab PO BID [facility] Stop: 09/23/22 09:01 Last Admin: 09/22/22 09:13 Dose: 1 tab No Known Home Medications 09/15/22 Objective - Vital Signs/Intake & Output Vital Signs: Vital Signs x48h Temp Pulse Resp BP BP Pulse Ox 09/22/22 11:38 36.7 C 71 18 145/99 H 98 09/22/22 09:13 170/115 H 09/22/22 08:05 36.4 C L 81 18 164/88 H 99 Intake & Output: Intake & Output 09/19/22 09/20/22 09/21/22 09/22/22 23:59 23:59 23:59 23:59 Intake Total 940 1480 710 800 Output Total 1200 300 150 300 Balance -260 1180 560 500 - Objective General Appearance: positive: No acute distress, Alert Eyes Bilateral: positive: PERRL, EOMI ENT: positive: No signs of dehydration Neck: positive: No JVD Respiratory: positive: No respiratory distress. negative: Wheezes, Rales, Rhonchi Cardiovascular: positive: Regular rate & rhythm Abdomen: positive: Non-tender, No organomegaly, Nml bowel sounds, No distention Skin: positive: Warm, Dry Extremities: positive: Full ROM, No pedal edema Neurologic/Psychiatric: positive: CN's nml (2-12), Motor nml, Disoriented to place, Disoriented to time. negative: Mood/affect nml (labile, excessive anxiety, confused.) - Lab Results Fish Bones: 09/16/22 04:35 09/22/22 05:40 Other Labs: Lab Results x24hrs 09/22/22 Range/Units 05:40 Sodium 138 (135-145) mmol/L Potassium 4.0 (3.5-5.0) mmol/L Chloride 107 (101-111) mmol/L Carbon Dioxide 22 (21-32) mmol/L Anion Gap 9.0 (6-13) BUN 27 H (6-20) mg/dL Creatinine 1.4 H (0.4-1.0) mg/dL Estimated GFR (MDRD) 38 L (>89) Glucose 98 (70-100) mg/dL Calcium 9.0 (8.5-10.3) mg/dL ABX Reporting Has patient been on IV antibiotics over the past 48 hours?: No Sepsis Event Note (H) - Evaluation Current Stage of Sepsis: Ruled out Assessment/Plan - Problem List (1) Sequela of lacunar infarction Impression: CT of the head done on admission showed a stable left hutchinson radiata infarction. It is unknown when she had the stroke. Psychological and psychiatric consequences are commonly observed in damage to the hutchinson radiata because it disconnects the functional circuitry between the frontal cortex and the brains tem, disturbing voluntary emotional expression. So her problem could either be an undiagnosed psychiatric disorder, or this stroke that we are seeing as chronic on CT and could have possibly occurred late July or early August. To cover her for the carotid stenosis that has been found with a previous admission, she is on Lipitor, aspirin and Plavix. Plan: She is not able to be safely discharged to home. Social work and case management is working on finding a location for a safe discharge. This may involve establishing a guardian if she does not have a DPOA. We are also moving forward to social work for probable placement that she cannot be safely discharged home. (2) Syncope was the reason she was admitted Qualifiers: Syncope type: unspecified Qualified Code(s): R55 - Syncope and collapse Assessment/Plan: So far telemetry has been without arrhythmia. MRI and CT of head have shown old infarct. Current admission CT is negative for new infarct. Echocardiogram was done and showed normal LVEF of 65% without VSD or ASD. Plan: iv fluids (3) Orthostatic tachycardia The patient was very orthostatic with pulse but not BP change on 09/18: BP supine 142/100, HR 106. BP sitting 155/115, HR 121. BP standing 130/107, HR 144. 09/19 her HR romulo from 95 when supine to 125 w/ standing. Today She continues to have an abnormal finding supine is 166/99, HR: 82; Sitting is 146/105 HR: 92; standing 170/115 HR: 118. Orthostasis may have likely been why she had her (presumed) syncope at home. She has been given IV fluids and saline boluses. Her heart rate is getting better. Plan: 1 more fluid bolus today and reassess tomorrow (4) Tachycardia Heart rate at rest is between 70-80. Continue telemetry. (5) Dehydration resolved. Sodium has improved with IV hydration. Considering her erratic behavior and lack of insight about taking her medications, she most likely has decreased p.o. intake at home. (6) Hypertension. Zestril was increased yesterday, blood pressure is occasionally 161 systolic. Plan: Continue zestril 10mg and watch for low BP. (7) Leg wound 09/19 her RN brought to our attention, for the first time, that the pt has a thick, round, purple elevated lesion on back of L calf. In pictures, it looks like a large blood blister. Pt said she has had it "a while, it is not new". It is slt tender. It is just where her calves hit the foot rest. There is mild redness around it. Plan: will order bandaging, and prop up calves on pillow. Monitor for cellulitis and watch WBC daily. Will consider a MAC Wound consult on thursday when they are here.
--- NOTE | 2022-09-22 17:04 | PROVIDER PROGRESS NOTE ---
Progress Note September 21, 2022 2 PM No new complaints. This patient will perseverate and fixated on a problem and that will be what she is alarmed about. Today she is very fixated not being blamed for something. But she could not quite tell me what she was worried about. There are no new events. Temperature is 36.6. Heart rate 77. Blood pressure 154/100. Respirations 20. 98% on room air. She is alert, cooperative, and can be prompted. However she would become emotionally labile, crying out because she is afraid of something. Neck is supple. No JVD or bruits Lungs are clear without crackles rhonchi wheezing Regular rate and rhythm Abdomen soft, nontender. She is eating anywhere between 25 to 100% of her food defending with the meals. Last bowel movement September 20. Extremities without edema Neurologically emotionally labile, but no focal deficits. No facial asymmetry. Speech can be tangential, scattered. And at times focused and able to answer questions. No cerebellar findings. BMP in normal with a BUN of 27, creatinine 1.4 and stable for her. Assessment/plan 1. Leon radiata infarct. I was going back and forth between either a neurological event or a psychiatric disorder. But in reading more more about leon radiata strokes, I think that is what we are seeing. It goes with a history of her having a sudden change in personality the beginning of August as described by her friends. She does have carotid stenosis and she is on Lipitor, aspirin, and Plavix. Not safe discharge for home. She is impulsive, cannot make decisions. There is no power of program supervisor. Plan: Moving forward with social work for placement and probable guardianship. 2. Syncope was the reason she was admitted Syncope work-up with regards to echo and arrhythmia analysis has been negative. She is orthostatic at times but more with pulse. 3. Orthostatic tachycardia. Getting IV fluids but not much more that we can do. 4. Tachycardia. For the most part she has been in the 70s and 80s today. She was 108 this morning. Continue Lopressor 25 p.o. twice daily which was started yesterday 5. Dehydration is resolved 6. Hypertension is not well controlled. She is on Zestril 5 mg a day and I have increased that to 10 mg a day on September 20. This will take a few days for to take effect. Unless she is symptomatic or greater than 180 systolic I will wait to let the Zestril take effect. 7. September 19 nurse identified a blister on the back left calf. So far no evidence of cellulitis and white cell count is stayed stable.
[2022-09-22] MEDS: QUEtiapine 100 MG TABLET PO SCH (20:23)
[2022-09-23 06:58] LABS: CREATININE 1.5 mg/dL (0.4-1.0); POTASSIUM 4.1 mmol/L (3.5-5.0)
[2022-09-23] MEDS: lisinopriL 5 MG TABLET PO SCH (08:47)
[2022-09-23] MEDS: METOPROLOL TARTRATE 25 MG TABLET PO SCH ×2 (08:47→21:11)
[2022-09-23] MEDS: CLOPIDOGREL 75 MG TABLET PO SCH (08:47)
[2022-09-23] MEDS: polyethylene glycoL 3350 17 GM PACKET PO SCH (08:47)
[2022-09-23] MEDS: OLANZapine ODT 5 MG TABLET TL SCH ×2 (08:47→21:11)
[2022-09-23] MEDS: SULFAMETH/TRIMETH DS 800/160 MG TABLET PO SCH (08:48)
[2022-09-23] MEDS: DOCUSATE SODIUM 250 MG CAPSULE PO SCH ×2 (08:48→21:11)
[2022-09-23] MEDS: SENNA 8.6 MG TABLET PO SCH ×2 (08:48→21:12)
--- NOTE | 2022-09-23 09:04 | PROVIDER PROGRESS NOTE ---
Subjective - Prog Note Date Prog Note Date: 09/23/22 Prog Note Time: 09:02 - Subjective Pt reports feeling: No change Subjective: Sheri was sitting up in bed feeding herself this morning. She has been sleeping better. while she is still confused, she has had less emotional outbursts. She is participating well with physical therapy and has expressed that she agrees she should live in assisted living when she leaves the hospital to the secondary social studies teacher. Current Medications - Current Medications Current Medications: Active Medications Acetaminophen (Acetaminophen 325 Mg Tablet) 650 mg PO Q4HR PRN PRN Reason: Pain 1 to 4, or Fever Last Admin: 09/15/22 15:37 Dose: 650 mg Clopidogrel Bisulfate (Clopidogrel 75 Mg Tablet) 75 mg PO DAILY [facility] Last Admin: 09/23/22 08:47 Dose: 75 mg Docusate Sodium (Docusate Sodium 250 Mg Capsule) 250 - 500 mg PO BID [facility] Last Admin: 09/23/22 08:48 Dose: Not Given Haloperidol (Haloperidol 5 Mg/Ml Vial) 1 mg IVP Q12H PRN PRN Reason: Agitation Last Admin: 09/20/22 09:17 Dose: 1 mg Lisinopril (Lisinopril 5 Mg Tablet) 10 mg PO DAILY [facility] Last Admin: 09/23/22 08:47 Dose: 10 mg Metoprolol Tartrate (Metoprolol Tartrate 25 Mg Tablet) 25 mg PO BID [facility] Last Admin: 09/23/22 08:47 Dose: 25 mg Morphine Sulfate (Morphine 2 Mg/Ml Carpuject) 2 mg IVP Q2HR PRN PRN Reason: Pain 8 to 10 Multi-Ingredient Ointment (Zinc Oxide 20% Oint 30 Gm Tube) 1 applic TOP PRN PRN PRN Reason: Skin Care Last Admin: 09/22/22 10:00 Dose: 1 applic Multi-Ingredient Ointment (Zinc Oxide 20% Oint 30 Gm Tube) 1 applic TOP PRN PRN PRN Reason: Skin Care Olanzapine (Olanzapine Odt 5 Mg Tablet) 2.5 mg TL BID [facility] Last Admin: 09/23/22 08:47 Dose: 2.5 mg Oxycodone HCl (Oxycodone 5 Mg Tablet) 5 mg PO Q4HR PRN PRN Reason: Pain 5 to 7 Polyethylene Glycol (Polyethylene Glycol 3350 17 Gm Packet) 17 gm PO DAILY [facility] Last Admin: 09/23/22 08:47 Dose: 17 gm Quetiapine Fumarate (Quetiapine 100 Mg Tablet) 100 mg PO QPM [facility] Last Admin: 09/22/22 20:23 Dose: 100 mg Senna (Senna 8.6 Mg Tablet) 8.6 - 17.2 mg PO BID [facility] Last Admin: 09/23/22 08:48 Dose: Not Given No Known Home Medications 09/15/22 Objective - Vital Signs/Intake & Output Vital Signs: Vital Signs x48h Temp Pulse Resp BP BP Pulse Ox 09/23/22 08:47 163/113 H 09/23/22 08:00 36.7 C 74 18 140/77 H 98 Intake & Output: Intake & Output 09/20/22 09/21/22 09/22/22 09/23/22 23:59 23:59 23:59 23:59 Intake Total 9839 141 5514 Output Total 300 150 500 Balance 8157 866 0013 - Objective General Appearance: positive: No acute distress, Alert Eyes Bilateral: positive: PERRL, EOMI ENT: positive: No signs of dehydration Neck: positive: No JVD. negative: Stiff neck Respiratory: positive: No respiratory distress. negative: Wheezes, Rales, Rhonc hi Cardiovascular: positive: Regular rate & rhythm Abdomen: positive: Non-tender, No organomegaly, Nml bowel sounds, No distention Skin: positive: Warm, Dry Extremities: positive: Full ROM Neurologic/Psychiatric: positive: CN's nml (2-12), Disoriented to place, Disoriented to time. negative: Mood/affect nml (excessive anxiety and confusion, with intermittent emotional lability) - Lab Results Fish Bones: 09/16/22 04:35 09/23/22 05:04 Other Labs: Lab Results x24hrs 09/23/22 Range/Units 05:04 Sodium 135 (135-145) mmol/L Potassium 4.1 (3.5-5.0) mmol/L Chloride 106 (101-111) mmol/L Carbon Dioxide 21 (21-32) mmol/L Anion Gap 8.0 (6-13) BUN 28 H (6-20) mg/dL Creatinine 1.5 H (0.4-1.0) mg/dL Estimated GFR (MDRD) 35 L (>89) Glucose 100 (70-100) mg/dL Calcium 9.0 (8.5-10.3) mg/dL ABX Reporting Has patient been on IV antibiotics over the past 48 hours?: No Sepsis Event Note (H) - Evaluation Current Stage of Sepsis: Ruled out Assessment/Plan - Problem List (1) Sequela of lacunar infarction Impression: CT of the head done on admission showed a stable left hutchinson radiata infarction. It is unknown when she had the stroke. Psychological and psychiatric consequences are commonly observed in damage to the hutchinson radiata because it disconnects the functional circuitry between the frontal cortex and the brainstem, disturbing voluntary emotional expression. So her problem could either be an undiagnosed psychiatric disorder, or this stroke that we are seeing as chronic on CT and could have possibly occurred late July or early August. To cover her for the carotid stenosis that has been found with a previous admission, she is on Lipitor, aspirin and Plavix. Plan: She is not able to be safely discharged to home. Social work and case management is working on finding a location for a safe discharge. This may involve establishing a guardian if she does not have a DPOA. We are also moving forward to social work for probable placement that she cannot be safely discharged home. (2) Syncope was the reason she was admitted Qualifiers: Syncope type: unspecified Qualified Code(s): R55 - Syncope and collapse Assessment/Plan: So far telemetry has been without arrhythmia. MRI and CT of head have shown old infarct. Current admission CT is negative for new infarct. Echocardiogram was done and showed normal LVEF of 65% without VSD or ASD. Plan: iv fluids Stop telemetry. (3) UTI On a urinalysis she was positive for urine nitrites, leukocyte esterase and urine WBC. In an elderly woman it's possible this infection was contributing to her confusion or altered mental status. Plan: Continue Bactrim PO (4) Orthostatic tachycardia She continues to have positional changes in HR and BP. Today her vitals are; Supine: 140/77, 74; Sitting 159/106, 84; Standing 163/113, 108. Orthostasis may have likely been why she had her (presumed) syncope at home. She does not have any signs of hypovolemia, her electrolytes are within normal limits, her BUN is 28, Cr 1.5, GFR 35. She has been given IV fluids and saline boluses. Her heart rate is getting better. Plan: continue IV fluids. (5) Tachycardia Heart rate at rest is between 70-80. Discontinue telemetry. (6) Dehydration resolved. Electrolytes are within normal limits, she is not hypotensive, HR is within normal limits. (7) Hypertension. Zestril was increased yesterday, blood pressure is occasionally 161 systolic. Plan: Continue zestril 10mg and watch for low BP. (8) Leg wound 09/19 her RN brought to our attention, for the first time, that the pt has a thick, round, purple elevated lesion on back of L calf. In pictures, it looks like a large blood blister. Pt said she has had it "a while, it is not new". It is slt tender. It is just where her calves hit the foot rest. There is mild redness around it. Plan: will order bandaging, and prop up calves on pillow. Monitor for cellulitis and watch WBC daily. Will consider a MAC Wound consult on thursday when they are here.
[2022-09-23] MEDS: QUEtiapine 100 MG TABLET PO SCH (21:11)
[2022-09-23] MEDS: SODIUM CHLORIDE FLUSH 0.9% 10 ML SYRINGE IVP SCH (21:12)
[2022-09-24] MEDS: SODIUM CHLORIDE FLUSH 0.9% 10 ML SYRINGE IVP SCH ×3 (00:09→15:11)
[2022-09-24] MEDS: polyethylene glycoL 3350 17 GM PACKET PO SCH (07:56)
[2022-09-24] MEDS: OLANZapine ODT 5 MG TABLET TL SCH ×2 (07:56→21:19)
[2022-09-24] MEDS: CLOPIDOGREL 75 MG TABLET PO SCH (07:57)
[2022-09-24] MEDS: lisinopriL 5 MG TABLET PO SCH (07:57)
[2022-09-24] MEDS: METOPROLOL TARTRATE 25 MG TABLET PO SCH ×2 (07:57→21:18)
[2022-09-24] MEDS: DOCUSATE SODIUM 250 MG CAPSULE PO SCH ×2 (07:58→21:19)
[2022-09-24] MEDS: SENNA 8.6 MG TABLET PO SCH ×2 (07:58→21:19)
[2022-09-24] MEDS: ACETAMINOPHEN 325 MG TABLET PO PRN (12:22)
--- NOTE | 2022-09-24 14:05 | PROVIDER PROGRESS NOTE ---
Subjective - Prog Note Date Prog Note Date: 09/24/22 Prog Note Time: 14:20 - Subjective Pt reports feeling: Improved Subjective: She is sitting in her chair this morning. And actually she was that way yesterday. Feeding herself breakfast. I have noticed that her conversational style is slowly becoming normal. Less tangential, more focused. She denies any current problems other than memory loss. She is aware that she is in [place] and that she is in the hospital but not quite remembering why she is in the hospital other than the confusion Current Medications - Current Medications Current Medications: Active Medications Acetaminophen (Acetaminophen 325 Mg Tablet) 650 mg PO Q4HR PRN PRN Reason: Pain 1 to 4, or Fever Last Admin: 09/24/22 12:22 Dose: 650 mg Clopidogrel Bisulfate (Clopidogrel 75 Mg Tablet) 75 mg PO DAILY [facility] Last Admin: 09/24/22 07:57 Dose: 75 mg Docusate Sodium (Docusate Sodium 250 Mg Capsule) 250 - 500 mg PO BID [facility] Last Admin: 09/24/22 07:58 Dose: Not Given Haloperidol (Haloperidol 5 Mg/Ml Vial) 1 mg IVP Q12H PRN PRN Reason: Agitation Last Admin: 09/20/22 09:17 Dose: 1 mg Lisinopril (Lisinopril 5 Mg Tablet) 20 mg PO DAILY [facility] Metoprolol Tartrate (Metoprolol Tartrate 25 Mg Tablet) 25 mg PO BID [facility] Last Admin: 09/24/22 07:57 Dose: 25 mg Morphine Sulfate (Morphine 2 Mg/Ml Carpuject) 2 mg IVP Q2HR PRN PRN Reason: Pain 8 to 10 Multi-Ingredient Ointment (Zinc Oxide 20% Oint 30 Gm Tube) 1 applic TOP PRN PRN PRN Reason: Skin Care Last Admin: 09/22/22 10:00 Dose: 1 applic Multi-Ingredient Ointment (Zinc Oxide 20% Oint 30 Gm Tube) 1 applic TOP PRN PRN PRN Reason: Skin Care Olanzapine (Olanzapine Odt 5 Mg Tablet) 2.5 mg TL BID [facility] Last Admin: 09/24/22 07:56 Dose: 2.5 mg Oxycodone HCl (Oxycodone 5 Mg Tablet) 5 mg PO Q4HR PRN PRN Reason: Pain 5 to 7 Polyethylene Glycol (Polyethylene Glycol 3350 17 Gm Packet) 17 gm PO DAILY [facility] Last Admin: 09/24/22 07:56 Dose: 17 gm Quetiapine Fumarate (Quetiapine 100 Mg Tablet) 100 mg PO QPM [facility] Last Admin: 09/23/22 21:11 Dose: 100 mg Senna (Senna 8.6 Mg Tablet) 8.6 - 17.2 mg PO BID [facility] Last Admin: 09/24/22 07:58 Dose: Not Given Sodium Chloride (Sodium Chloride Flush 0.9% 10 Ml Syringe) 10 ml IVP 0100,0900,1700 [facility] Last Admin: 09/24/22 07:58 Dose: 10 ml No Known Home Medications 09/15/22 Objective - Vital Signs/Intake & Output Reviewed Vital Signs: Yes Vital Signs: Vital Signs x48h Temp Pulse BP BP Pulse Ox 09/24/22 08:00 36.5 C 68 144/73 H 98 09/24/22 07:57 144/73 H Intake & Output: Intake & Output 09/21/22 09/22/22 09/23/22 09/24/22 23:59 23:59 23:59 23:59 Intake Total 710 1690 1790 320 Output Total 150 500 850 350 Balance 560 1190 940 -30 - Objective General Appearance: positive: No acute distress, Alert Eyes Bilateral: positive: PERRL, EOMI ENT: positive: No signs of dehydration Neck: positive: No JVD. negative: Stiff neck Respiratory: positive: No respiratory distress. negative: Wheezes, Rales, Rhonchi Cardiovascular: positive: Regular rate & rhythm Abdomen: positive: Non-tender, No organomegaly, Nml bowel sounds, No distention Skin: positive: Warm, Dry Extremities: positive: Full ROM, No pedal edema Neurologic/Psychiatric: positive: CN's nml (2-12), Motor nml, Disoriented to time, Slurred/abnml speech (Still losing her train of thought at times, but much improved). negative: Facial droop - Lab Results Fish Bones: 09/16/22 04:35 09/23/22 05:04 ABX Reporting Has patient been on IV antibiotics over the past 48 hours?: No Sepsis Event Note (H) - Evaluation Current Stage of Sepsis: Ruled out Assessment/Plan - Problem List (1) Sequela of lacunar infarction Impression: CT of the head done on admission showed a stable left hutchinson radiata infarction. It is unknown when she had the stroke. Psychological and psychiatric consequences are commonly observed in damage to the hutchinson radiata because it disconnects the functional circuitry between the frontal cortex and the brainstem, disturbing voluntary emotional expression. So her problem could either be an undiagnosed psychiatric disorder, or this stroke that we are seeing as chronic on CT and could have possibly occurred late July or early August. To cover her for the carotid stenosis that has been found with a previous admission, she is on Lipitor, aspirin and Plavix. I came to believe that this was more a hutchinson radiata infarct than a true psychiatric disorder because of the acuteness of the event. The people that know her well state that she was she stable, organized, and her baseline self until late July or early August. So somewhere in that timeframe she must of had that stroke. Since that time she has not been herself. Plan: She is not able to be safely discharged to home. Social work and case management is working on finding a location for a safe discharge. Between yesterday and today she is signed power of hurl shaker paperwork with her friends Slava and Yancy in [place]. She consistently says these are the people she wants me to talk to. Their plan is to possibly fly her out to [place]. Social work and the power of hurl shaker are now working together to make arrangements for discharge. She was medically stable for discharge since the day of her orthostatic tachycardia resolved. In looking at her vitals that would be September 21.. (2) Syncope was the reason she was admitted Qualifiers: Syncope type: unspecified Qualified Code(s): R55 - Syncope and collapse Assessment/Plan: So far telemetry has been without arrhythmia. MRI and CT of head have shown old infarct. Current admission CT is negative for new infarct. Echocardiogram was done and showed normal LVEF of 65% without VSD or ASD. Plan:IVF and tele have been stopped. (3) E coli UTI On a urinalysis she was positive for urine nitrites, leukocyte esterase and urine WBC. In an elderly woman it's possible this infection was contributing to her confusion or altered mental status. Plan: Was on Bactrim PO. She finished 6 doses yesterday morning (4) Orthostatic tachycardia Her last tachycardic change with orthostasis was September 21. On the her pulse was 82 supine, 92 sitting, 118 standing. She is hypertensive at 170/115 that day. Today she is 74 supine, 84 sitting, 108 standing. Again when she stands she is hypertensive at 163/113. She is on Zestril 10 mg a day and metroprolol 25 mg po bid. She also received IV fluids and saline boluses. Her last saline bolus was September 20, 1 L. Plan:Her Zestril was changed to 10 mg a day on September 21. It is now 3 days later. Usually I change it every 7 days because she has had a stroke, and I would like to reduce her risk factors, I will increase her to 20 mg a day (5) Tachycardia resolved Heart rate at rest is between 70-80. telemetry was discontinued. (6) Dehydration resolved. Electrolytes are within normal limits, she is not hypotensive, HR is within normal limits. (7) Hypertension. Zestril was increased to 10 mg on 09/21. This morning she was as high as 163/113. Plan: Increase zestril from 10mg to 20 mg and watch for low BP. (8) Leg wound 09/19 her RN brought to our attention, for the first time, that the pt has a thick, round, purple elevated lesion on back of L calf. In pictures, it looks like a large blood blister. Pt said she has had it "a while, it is not new". It is slt tender. It is just where her calves hit the foot rest. There is mild redness around it. Plan: will order bandaging, and prop up calves on pillow. Monitor for cellulitis and watch WBC daily.
[2022-09-24] MEDS: QUEtiapine 100 MG TABLET PO SCH (21:19)
[2022-09-25] MEDS: SODIUM CHLORIDE FLUSH 0.9% 10 ML SYRINGE IVP SCH ×3 (01:00→16:06)
[2022-09-25] MEDS: ACETAMINOPHEN 325 MG TABLET PO PRN ×4 (04:22→23:56)
[2022-09-25] MEDS: lisinopriL 20 MG TABLET PO SCH (09:34)
[2022-09-25] MEDS: CLOPIDOGREL 75 MG TABLET PO SCH (09:35)
[2022-09-25] MEDS: METOPROLOL TARTRATE 25 MG TABLET PO SCH ×2 (09:35→21:00)
[2022-09-25] MEDS: OLANZapine ODT 5 MG TABLET TL SCH ×2 (09:36→21:02)
[2022-09-25] MEDS: DOCUSATE SODIUM 250 MG CAPSULE PO SCH ×2 (09:42→17:05)
[2022-09-25] MEDS: polyethylene glycoL 3350 17 GM PACKET PO SCH (09:42)
[2022-09-25] MEDS: SENNA 8.6 MG TABLET PO SCH ×2 (09:42→17:05)
--- NOTE | 2022-09-25 15:43 | PROVIDER PROGRESS NOTE ---
Progress Note September 25, 2022 3:39 PM Today is the best of seeing her. Speech is lucid, intact. She is oriented. She also says this is the happiest she has been in a while because she has been in contact with her friends Slava and Joanne. They are now her power of erisa attorney and they are making plans to pick her up, take her to [place] and she will live there. 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 Again, this is the most lucid and sequential her thought processes been. Active Medications Acetaminophen (Acetaminophen 325 Mg Tablet) 650 mg PO Q4HR PRN PRN Reason: Pain 1 to 4, or Fever Last Admin: 09/25/22 12:14 Dose: 650 mg Clopidogrel Bisulfate (Clopidogrel 75 Mg Tablet) 75 mg PO DAILY [facility] Last Admin: 09/25/22 09:35 Dose: 75 mg Docusate Sodium (Docusate Sodium 250 Mg Capsule) 250 - 500 mg PO BID [facility] Last Admin: 09/25/22 09:42 Dose: Not Given Haloperidol (Haloperidol 5 Mg/Ml Vial) 1 mg IVP Q12H PRN PRN Reason: Agitation Last Admin: 09/20/22 09:17 Dose: 1 mg Lisinopril (Lisinopril 20 Mg Tablet) 20 mg PO DAILY [facility] Last Admin: 09/25/22 09:34 Dose: 20 mg Metoprolol Tartrate (Metoprolol Tartrate 25 Mg Tablet) 25 mg PO BID [facility] Last Admin: 09/25/22 09:35 Dose: 25 mg Morphine Sulfate (Morphine 2 Mg/Ml Carpuject) 2 mg IVP Q2HR PRN PRN Reason: Pain 8 to 10 Multi-Ingredient Ointment (Zinc Oxide 20% Oint 30 Gm Tube) 1 applic TOP PRN PRN PRN Reason: Skin Care Last Admin: 09/22/22 10:00 Dose: 1 applic Multi-Ingredient Ointment (Zinc Oxide 20% Oint 30 Gm Tube) 1 applic TOP PRN PRN PRN Reason: Skin Care Olanzapine (Olanzapine Odt 5 Mg Tablet) 2.5 mg TL BID [facility] Last Admin: 09/25/22 09:36 Dose: 2.5 mg Oxycodone HCl (Oxycodone 5 Mg Tablet) 5 mg PO Q4HR PRN PRN Reason: Pain 5 to 7 Polyethylene Glycol (Polyethylene Glycol 3350 17 Gm Packet) 17 gm PO DAILY [facility] Last Admin: 09/25/22 09:42 Dose: Not Given Quetiapine Fumarate (Quetiapine 100 Mg Tablet) 100 mg PO QPM [facility] Last Admin: 09/24/22 21:19 Dose: 100 mg Senna (Senna 8.6 Mg Tablet) 8.6 - 17.2 mg PO BID [facility] Last Admin: 09/25/22 09:42 Dose: Not Given Sodium Chloride (Sodium Chloride Flush 0.9% 10 Ml Syringe) 10 ml IVP 0100,0900,1700 [facility] Last Admin: 09/25/22 09:39 Dose: 10 ml No Known Home Medications 09/15/22 Temperature is 36 5. Blood pressure 135/78. Orthostatic tachycardia has resolved. Blood pressure is in the 140s to 170s at times. 99% on room air Alert and oriented white female who looks stated age. Calm, no emotional lability. Following commands. Neck is supple Lungs are clear to Regular rate and rhythm Abdomen soft nontender No labs since September 23 Assessment/plan 1. Sequela of lacunar infarction. I suspect this happened in late July, early August because this correlates with when her personality change. And multiple ER visits started to happen. She has carotid stenosis. She will need outpatient evaluation for possible future surgery if appropriate. Currently on Lipitor, aspirin, Plavix. 2. Syncope. Work-up to date has been telemetry which is negative, MRI of the head and CT of the head show old hutchinson radiata infarct, echocardiogram normal. 3. E. coli UTI. Completed 6 doses of Bactrim September 23 4. Orthostatic tachycardia. Blood pressure still not well controlled. She went from Zestril 5 mg a day to 10 mg a day on September 21. I then increased to 20 mg a day today. We will wait 3 to 5 days before making any changes. 5.. Tachycardia resolved 6. Dehydration resolved 7. Hypertension is in problem #4 8. Blister on the back of her left calf as it approaches the popliteal fossa. No redness, no heat. No signs and symptoms of cellulitis.
[2022-09-25] MEDS: QUEtiapine 100 MG TABLET PO SCH (21:02)
[2022-09-26] MEDS: SODIUM CHLORIDE FLUSH 0.9% 10 ML SYRINGE IVP SCH ×3 (02:54→20:29)
[2022-09-26] MEDS: ACETAMINOPHEN 325 MG TABLET PO PRN ×2 (05:18→15:55)
[2022-09-26] MEDS: lisinopriL 20 MG TABLET PO SCH (09:19)
[2022-09-26] MEDS: CLOPIDOGREL 75 MG TABLET PO SCH (09:19)
[2022-09-26] MEDS: METOPROLOL TARTRATE 25 MG TABLET PO SCH ×2 (09:20→20:28)
[2022-09-26] MEDS: OLANZapine ODT 5 MG TABLET TL SCH ×2 (09:20→20:28)
[2022-09-26] MEDS: DOCUSATE SODIUM 250 MG CAPSULE PO SCH ×2 (09:23→20:29)
[2022-09-26] MEDS: SENNA 8.6 MG TABLET PO SCH ×2 (09:23→20:29)
[2022-09-26] MEDS: polyethylene glycoL 3350 17 GM PACKET PO SCH (09:23)
--- NOTE | 2022-09-26 15:56 | PROVIDER PROGRESS NOTE ---
Progress Note September 26, 2021 3:52 PM Ambulating in room without ataxia. Eating her food. Symptom structure is normal. No tangential thought process. I think she is at baseline. She is very excited because her friends from [place] are coming September 28. They will take her home where she will pack up the things that she wants most from her apartment. She will sell things that she does not want. And then they are going to start driving back to [place] and that is where her new home is going to be. She really does not have a lot of recollection of what is been happening. She has vague memories and flashes. She currently denies hallucinations, is alert and oriented. Temperature is 36.6. Heart rate 68. Still a little tachycardic. Supine is 68, sitting at 77, standing is 116. Blood pressure is stable. 5 foot 4 inches tall, 110 kg Morbidly obese pleasant white female with alopecia, alert, no acute distress. Sitting upright in her chair and has eaten lunch. Neck is supple Lungs are clear to auscultation and percussion Regular rate and rhythm Abdomen soft, nontender with normal bowel sounds. Last bowel movement today. Extremities with cankles. Chronic nonpitting edema. Ambulatory without any durable medical equipment. No focal deficits. No labs since September 23 Assessment/Plan 1. Sequela of lacunar infarction. I suspect this happened in late July, early August because this correlates with when her personality change. And multiple ER visits started to happen. She has carotid stenosis. She will need outpatient evaluation for possible future surgery if appropriate. Currently on Lipitor, aspirin, Plavix. 2. Syncope. Work-up to date has been telemetry which is negative, MRI of the head and CT of the head show old hutchinson radiata infarct, echocardiogram normal. 3. E. coli UTI. Completed 6 doses of Bactrim September 23 4. Orthostatic tachycardia. Blood pressure still not well controlled. She went from Zestril 5 mg a day to 10 mg a day on September 21. I then increased to 20 mg a day today. We will wait 3 to 5 days before making any changes. 5.. Tachycardia resolved 6. Dehydration resolved 7. Hypertension is in problem #4 8. Blister on the back of her left calf as it approaches the popliteal fossa. No redness, no heat. No signs and symptoms of cellulitis.
[2022-09-26] MEDS: QUEtiapine 100 MG TABLET PO SCH (20:29)
[2022-09-27] MEDS: SODIUM CHLORIDE FLUSH 0.9% 10 ML SYRINGE IVP SCH ×4 (02:42→23:56)
[2022-09-27] MEDS: ACETAMINOPHEN 325 MG TABLET PO PRN (06:20)
[2022-09-27] MEDS: METOPROLOL TARTRATE 25 MG TABLET PO SCH ×2 (08:15→20:39)
[2022-09-27] MEDS: lisinopriL 20 MG TABLET PO SCH (08:15)
[2022-09-27] MEDS: OLANZapine ODT 5 MG TABLET TL SCH ×2 (08:15→20:41)
[2022-09-27] MEDS: CLOPIDOGREL 75 MG TABLET PO SCH (08:15)
[2022-09-27] MEDS: SENNA 8.6 MG TABLET PO SCH ×2 (08:16→20:39)
[2022-09-27] MEDS: DOCUSATE SODIUM 250 MG CAPSULE PO SCH ×2 (08:16→20:38)
[2022-09-27] MEDS: polyethylene glycoL 3350 17 GM PACKET PO SCH (08:16)
--- NOTE | 2022-09-27 14:25 | PROVIDER PROGRESS NOTE ---
Progress Note Assessment/plan September 27, 2022 2:16 PM Back at baseline. Ambulatory, taking care of her own activities of daily li ving. Speech is normal. Orientation is normal. Active Medications Acetaminophen (Acetaminophen 325 Mg Tablet) 650 mg PO Q4HR PRN PRN Reason: Pain 1 to 4, or Fever Last Admin: 09/27/22 06:20 Dose: 650 mg Clopidogrel Bisulfate (Clopidogrel 75 Mg Tablet) 75 mg PO DAILY [facility] Last Admin: 09/27/22 08:15 Dose: 75 mg Docusate Sodium (Docusate Sodium 250 Mg Capsule) 250 - 500 mg PO BID [facility] Last Admin: 09/27/22 08:16 Dose: Not Given Haloperidol (Haloperidol 5 Mg/Ml Vial) 1 mg IVP Q12H PRN PRN Reason: Agitation Last Admin: 09/20/22 09:17 Dose: 1 mg Lisinopril (Lisinopril 20 Mg Tablet) 20 mg PO DAILY [facility] Last Admin: 09/27/22 08:15 Dose: 20 mg Metoprolol Tartrate (Metoprolol Tartrate 25 Mg Tablet) 25 mg PO BID [facility] Last Admin: 09/27/22 08:15 Dose: 25 mg Morphine Sulfate (Morphine 2 Mg/Ml Carpuject) 2 mg IVP Q2HR PRN PRN Reason: Pain 8 to 10 Multi-Ingredient Ointment (Zinc Oxide 20% Oint 30 Gm Tube) 1 applic TOP PRN PRN PRN Reason: Skin Care Last Admin: 09/22/22 10:00 Dose: 1 applic Multi-Ingredient Ointment (Zinc Oxide 20% Oint 30 Gm Tube) 1 applic TOP PRN PRN PRN Reason: Skin Care Olanzapine (Olanzapine Odt 5 Mg Tablet) 2.5 mg TL BID [facility] Last Admin: 09/27/22 08:15 Dose: 2.5 mg Oxycodone HCl (Oxycodone 5 Mg Tablet) 5 mg PO Q4HR PRN PRN Reason: Pain 5 to 7 Polyethylene Glycol (Polyethylene Glycol 3350 17 Gm Packet) 17 gm PO DAILY [facility] Last Admin: 09/27/22 08:16 Dose: Not Given Quetiapine Fumarate (Quetiapine 100 Mg Tablet) 100 mg PO QPM [facility] Last Admin: 09/26/22 20:29 Dose: 100 mg Senna (Senna 8.6 Mg Tablet) 8.6 - 17.2 mg PO BID [facility] Last Admin: 09/27/22 08:16 Dose: Not Given Sodium Chloride (Sodium Chloride Flush 0.9% 10 Ml Syringe) 10 ml IVP 0100,0900,1700 [facility] Last Admin: 09/27/22 08:16 Dose: 10 ml Exam: Temperature is 36.7. Blood pressure 143/78. Respirations 16. 100% on room air. Still slightly tachycardic with orthostatic changes. Supine 77, sitting 8 1, standing 101. 5 feet 4 inches tall, 110 kg. Alert, oriented to person place and time elderly female. Diffuse alopecia on top of her scalp. Neck is supple without JVD Lungs are clear Regular rate and rhythm Abdomen is soft, nontender, normal bowel sounds. Last bowel movement was yesterday. She has mild nonpitting edema compatible with chronic venous stasis Neurologically ambulating without assistance. She is able to use fine motor coordination with feeding herself, washing her hands, walking to the bathroom with toileting. She is using a walker for balance. She has been discharged from physical therapy since she is achieved her physical therapy goals. She is back at baseline with the exception of her impulsivity and confusion on that day. Today she is not impulsive, follow instructions, and no longer confused. Today CBC is normal. Chemistry normal potassium, sodium. BUN is 21, creatinine 1.1. On admission she was 43 and 1.7. GFR is improved from 30 and she is 50 today. Assessment/plan 1. Sequela of lacunar infarction. Patient has not been a safe discharge due to her disorientation and confusion and emotional lability. She was nebula make good judgment decisions with regards to her health, bill paying, driving, etc. She now has power of furnace mason's with her friends Slava and Yancy in [place]. They are driving from [place] and will be picking her up tomorrow. 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 Get her out of her lease. And she will be moving with them to [place] for permanent placement there. She most likely had a stroke in late July early August. That is when she started showing up in our emergency room. She is identified as having carotid stenosis. She will be discharged on Plavix, aspirin, Lipitor. Those were called into her [facility] September 26. She most likely will not be able to pick them up on September 28 since that pharmacy is closed that day. But she will get those medications given to her here, and then she can pick them up September 29. 2. Syncope. Telemetry without arrhythmia. MRI of the head and CT of the head show old hutchinson radiata infarct. Echocardiogram normal. 3. E. coli UTI. Completed 6 doses of Bactrim September 23. 4. Orthostatic tachycardia has resolved. On Zestril 20 mg a day. Blood pressure is controlled. 5. Tachycardia. On Lopressor 25 mg p.o. twice daily. Heart rate controlled. 6. Dehydration resolved. 7. Hypertension. Blood pressure control was Zestril and Lopressor 8. Blister on the back of her left calf as it opposes the popliteal fossa. No redness, no heat. No signs and symptoms of cellulitis and asked that she did not need to see wound care program.
[2022-09-27 14:40] LABS: BASOPHILS # (AUTO) 0.1 10^3/uL (0.0-0.1); BASOPHILS % (AUTO) 1.6 %; EOSINOPHILS # (AUTO) 0.1 10^3/uL (0.0-0.7); EOSINOPHILS % (AUTO) 1.4 %; HCT - HEMATOCRIT 41.8 % (37.0-47.0); HGB - HEMOGLOBIN 13.9 g/dL (12.0-16.0); LYMPHOCYTES # (AUTO) 1.7 10^3/uL (1.5-3.5); LYMPHOCYTES % (AUTO) 26.3 %; MEAN CORPUSCULAR HEMOGLOBIN 28.6 pg (27.0-31.0); MEAN CORPUSCULAR HGB CONC 33.3 g/dL (32.0-36.0); MEAN PLATELET VOLUME 9.7 fL (7.9-10.8); MONOCYTES # (AUTO) 0.5 10^3/uL (0.0-1.0); MONOCYTES % (AUTO) 8.5 %; NEUTROPHILS # (AUTO) 3.9 10^3/uL (1.5-6.6); PLT - PLATELET COUNT 220 10^3/uL (130-450); RED BLOOD COUNT 4.86 10^6/uL (4.20-5.40); RED CELL DISTRIBUTION WIDTH 15.2 % (12.0-15.0); WHITE BLOOD COUNT 6.4 x10^3/uL (4.8-10.8)
[2022-09-27 14:46] LABS: CALCIUM 9.3 mg/dL (8.5-10.3); CREATININE 1.1 mg/dL (0.4-1.0)
[2022-09-27] MEDS: QUEtiapine 100 MG TABLET PO SCH (20:41)
[2022-09-28] MEDS: ACETAMINOPHEN 325 MG TABLET PO PRN (00:33)
[2022-09-28] MEDS: METOPROLOL TARTRATE 25 MG TABLET PO SCH ×2 (08:50→20:42)
[2022-09-28] MEDS: OLANZapine ODT 5 MG TABLET TL SCH ×2 (08:50→20:41)
[2022-09-28] MEDS: CLOPIDOGREL 75 MG TABLET PO SCH (08:58)
[2022-09-28] MEDS: lisinopriL 20 MG TABLET PO SCH (08:58)
[2022-09-28] MEDS: polyethylene glycoL 3350 17 GM PACKET PO SCH (09:16)
[2022-09-28] MEDS: SODIUM CHLORIDE FLUSH 0.9% 10 ML SYRINGE IVP SCH ×2 (09:16→16:39)
[2022-09-28] MEDS: SENNA 8.6 MG TABLET PO SCH ×2 (09:17→20:47)
[2022-09-28] MEDS: DOCUSATE SODIUM 250 MG CAPSULE PO SCH ×2 (09:17→20:46)
--- NOTE | 2022-09-28 18:44 | PROVIDER PROGRESS NOTE ---
Progress Note September 28, 2022 6:42 PM No new complaints. Patient is stable. No change in vitals. No change in status. We are awaiting her power of patent prosecution attorney/friends to come pick her up. Temperature is 36.3. Heart rate 76. Blood pressure 139/76. Respirations 16. 100% on room air. Neck is supple Lungs are clear Regular rate and rhythm Abdomen soft nontender Neurologically she is alert, oriented to person place and time. Following commands. Skin structures lucid. No gait ataxia. Assessment/plan Lacunar infarct which resulted in severe emotional lability, thought process disorder. Thought to be possible psychiatric disorder. As time is gone on this month she is stabilized. She is now leaving this area to move to [place]. Her friends are picking her up and we are awaiting that.
[2022-09-28] MEDS: QUEtiapine 100 MG TABLET PO SCH (20:42)
[2022-09-29] MEDS: SODIUM CHLORIDE FLUSH 0.9% 10 ML SYRINGE IVP SCH (01:15)
[2022-09-29] MEDS: METOPROLOL TARTRATE 25 MG TABLET PO SCH (08:20)
[2022-09-29] MEDS: CLOPIDOGREL 75 MG TABLET PO SCH (08:20)
[2022-09-29] MEDS: lisinopriL 20 MG TABLET PO SCH (08:20)
[2022-09-29] MEDS: OLANZapine ODT 5 MG TABLET TL SCH (08:21)
[2022-09-29 10:29] VITALS: BP 152/87
--- NOTE | 2022-09-29 12:21 | Discharge Plan ---
Discharge Plan Problem Reviewed?: Yes Disposition: Home, Self Care Condition: Stable Prescriptions: Aspirin [Aspirin EC] 81 mg PO DAILY #100 tab Atorvastatin [Lipitor] 20 mg PO DAILY #30 tablet Clopidogrel [Plavix] 75 mg PO DAILY #30 tablet Metoprolol Succinate [Toprol Xl] 50 mg PO DAILY #30 tablet lisinopriL [Zestril] 20 mg PO DAILY #30 tablet Diet: Cardiac Activity Restrictions: Activity as Tolerated Shower Restrictions: No Driving Restrictions: Yes (no driving) Assistance Devices: Walker Health Concerns: She presented to the emergency room again after numerous visits to the emergency room that started at the beginning of August. She had a sudden change in status and that she was confused, emotionally labile, tangential in thought process. She was initially thought to be having an undiagnosed psychiatric disorder in relation to a living situation with her son. He is a registered sex offender, lives with her, and she found out that he was using her phone , and computer to continue his activities. Police and Adult Protective Services became involved. Numerous visits to the ER with emotional lability. With 1 visit on September 02 she was diagnosed as having carotid stenosis of the right internal carotid artery. It was 80% blocked. She was put on aspirin, Plavix, Lipitor and was to follow-up with a vascular surgeon. With 1 visit to the emergency room, she was even placed in an inpatient psychiatric facility but they had to discharge her because her constant need for prompting was too much for them to handle. She eventually returned to our emergency room with yet another crisis after a fall. She fell on the bathroom in her apartment. Unable to really clearly tell us what happened so we treated her as a person who had unexpectedly passed out. We repeated a neuro work-up. In our work-up we found her to have had a hutchinson radiata infarct. There is a very specific part of the brain and processes information. When you have a stroke in that area you are left with emotional lability, unable to process things that people are saying to you, and unable to then logically and lucidly respond back to people. We think that it was a scenario of a stroke, and the stress of her son with Adult Protective Services involved that resulted in her breakdown. Over the last 2 weeks she has gradually improved. The last 3 days have been especially good in her progress. Speech has returned to a lucid process. Thought process is now controlled. She is able to communicate effectively. She still has some emotional lability and will cry easily but is able to follow commands. She has been evaluated by physical therapy and Occupational Therapy. She does have some slight memory loss but we do feel she is able to be left alone. She is able to do toileting needs, dressing needs, and will possibly need a walker for balance. She should be able to live in her own apartment with frequent check ins to make sure she is taking her medication, eating food. Plan of Treatment: 1. Please establish her with a primary care provider. Clinics that should be looked at would include rural health clinics or formerly [facility] clinics that would take her insurance. [place] has at least 11 [facility] listings. [facility] is on the [place] of [facility] at [address] [facility] and [facility] on [address] are some of the clinics I have seen. 2. That primary care provider should continue her prescriptions of Plavix, aspirin, Lipitor. She should be able to come off aspirin or Plavix in the next 2 weeks. By 10/16/22. We call this treatment dual platelet inhibitor medication for a stroke. She does not need these 2 medications indefinitely. She needs them for a month and then her provider should stop one of the m edications after a month. She should continue the Lipitor indefinitely. The other thing the primary care provider needs to do is refer her to a vascular surgeon to be carefully evaluated to see if she needs carotid surgery for the 80% blockage. She also might be a candidate for continued occupational therapy in her home through home health. She should go through a period of rehab to get her balance back and some of her memory back because of the stroke. Care Goals: To live independently for as long as possible. She should be able to safely stay in subsidized housing found through [facility]. Occasionally someone should check in on her to make sure that her medication is being taken correctly, that she has enough food in the kitchen, but she should be able to take care of her self. With time, she may need more and more help. At that time, as power of patent attorney's, you would consider finding a chcf facility or retirement for her. That is paid for by Medicaid. This will be a few months if not a few years down the road. But you should be applying for Medicaid now in the state of [place]. She already has Medicare. Assessment: Patient is oriented to place, time, herself. Understands that something happened and that is why she ended up in the hospital but really cannot remember why it happened. Care plan gone over with her friend Slava who has driven from [place] to pick her up and to take her to [place] to live near them. Follow-Up Care: Home Health - PT, Home Health - OT, Home Health - ST No Smoking: If you smoke, Please STOP! Call for help.
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
== END 2022-09-29 13:10 | disposition home or self-care (01) | DRG 312 ==
LOC: EDUNIT# → ED 09:55 → MS2 13:08
PROVIDERS: ADMIT Specialist; ATTEND Specialist
DX: R55 Syncope and collapse (principal); R53.1 Weakness; E87.1 Hypo-osmolality and hyponatremia; R94.31 Abnormal electrocardiogram [ECG] [EKG]; E11.9 Type 2 diabetes mellitus without complications; N17.9 Acute kidney failure, unspecified; N39.0 Urinary tract infection, site not specified; Z68.41 Body mass index [BMI] 40.0-44.9, adult; I69.319 Unspecified symptoms and signs involving cognitive functions following cerebral infarction; I69.320 Aphasia following cerebral infarction; I69.393 Ataxia following cerebral infarction; E86.0 Dehydration; L13.9 Bullous disorder, unspecified; B96.20 Unspecified Escherichia coli [E. coli] as the cause of diseases classified elsewhere; I12.9 Hypertensive chronic kidney disease with stage 1 through stage 4 chronic kidney disease, or unspecified chronic kidney disease; N18.30 Chronic kidney disease, stage 3 unspecified; T43.596A Underdosing of other antipsychotics and neuroleptics, initial encounter; E11.51 Type 2 diabetes mellitus with diabetic peripheral angiopathy without gangrene; F03.90 Unspecified dementia, unspecified severity, without behavioral disturbance, psychotic disturbance, mood disturbance, and anxiety; H54.7 Unspecified visual loss; F41.9 Anxiety disorder, unspecified; E11.65 Type 2 diabetes mellitus with hyperglycemia; F17.290 Nicotine dependence, other tobacco product, uncomplicated; F17.210 Nicotine dependence, cigarettes, uncomplicated; I65.21 Occlusion and stenosis of right carotid artery; I95.1 Orthostatic hypotension; E66.9 Obesity, unspecified; R00.0 Tachycardia, unspecified; Z20.822 Contact with and (suspected) exposure to COVID-19; Z79.02 Long term (current) use of antithrombotics/antiplatelets; Z79.82 Long term (current) use of aspirin; Z79.899 Other long term (current) drug therapy; Z81.8 Family history of other mental and behavioral disorders; Z82.49 Family history of ischemic heart disease and other diseases of the circulatory system; Z91.14 Patient's other noncompliance with medication regimen
CPT/HCPCS: 36415; 70450; 71045; 80048; 80053; 81001; 82550; 83690; 85025; 87077; 87086; 87181; 87635; 93005; 93306; 96360; 97116; 97162; 97164; 97165; 97530; 97535; 99283; 99285; A9270; G0480; J1650; Q0162; 80320; 81003

== ENCOUNTER 2022-11-01 15:07 | Outpatient (CLI) | payer MEDICARE | END 2022-11-01 15:08 | disposition EMS.NT | LOC: EMS 15:07 | DX: F41.9 Anxiety disorder, unspecified (principal) ==

== ENCOUNTER 2022-11-06 21:27 | Outpatient (CLI) | payer MEDICARE | END 2022-11-06 21:28 | disposition EMS.NT | LOC: EMS 21:27 | DX: Z03.89 Encounter for observation for other suspected diseases and conditions ruled out (principal) ==

== ENCOUNTER 2023-01-28 14:37 | Outpatient (CLI) | payer MEDICAID, MEDICARE ==
--- NOTE | 2023-01-29 10:41 | Mammography Report ---
BILATERAL DIGITAL SCREENING MAMMOGRAM 3D/2D: 01/28/2023 CLINICAL: Baseline exam. Routine screening. No prior exams were available for comparison. Both breasts are heterogeneously dense, which may obscure small masses (category c / 51-75% glandular tissue). There is a benign calcification in the right breast. No significant masses, calcifications, or other findings are seen in either breast. IMPRESSION: BENIGN There is no mammographic evidence of malignancy. A 1 year screening mammogram is recommended. Based on the Tyrer Cuzick model (a risk assessment model) the patients lifetime risk is 10.2% and he r 10 year risk is 5.4%. According to the ACR, ACS, and NCCN guidelines, an annual breast MRI exam stu ng with mammogram is recommended if the patients lifetime risk is 20% or greater. This exam was interpreted at Station ID: [id number]. NOTE: For mammograms, a report in lay terms will be sent to the patient. Approximately 15% of breast malignancies will not be visualized mammographically. In the management of a palpable breast mass, a negative mammogram must not discourage biopsy of a clinically suspicious lesion. Electronically Signed By: Jacky vogt/frannie:01/28/2023 16:44:17 letter sent: No_Letter ACR BI-RADS Category 2: Benign Finding(s) 3342F PARENCHYMAL PATTERN: (D) - The breast(s) demonstrate(s) heterogeneously dense fibroglandular parenchy ma. BI-RADS CATEGORY: (2) - 2 Mammogram [id number] 1 year screening LATERALITY: (B)
== END 2023-01-28 14:38 | disposition home or self-care (01) ==
LOC: DI 14:37
PROVIDERS: ATTEND Physician Assistant
DX: Z12.31 Encounter for screening mammogram for malignant neoplasm of breast (principal); N95.9 Unspecified menopausal and perimenopausal disorder

== ENCOUNTER 2023-01-28 14:38 | Outpatient (CLI) | payer MEDICAID, MEDICARE ==
--- NOTE | 2023-01-28 17:02 | DEXA Report ---
PROCEDURE: Dexa Spine and/or Hip INDICATIONS: POST MENOPAUSAL TECHNIQUE: Dual energy x-ray absorptiometry (DXA) was performed on a [employer] System. Regions measur ed are the AP Spine, femoral neck, and if needed forearm. COMPARISON: None. FINDINGS: Lumbar Spine: Bone Mineral Density 1.355 g/cm/cm,T score 1.5, normal Left Femoral Neck: Bone Mineral Density 1.005 g/cm/cm, T score -0.2, normal Left Hip: Bone Mineral Density 1.120 g/cm/cm,T score 0.9, normal. (T score greater or equal to -1.0: NORMAL) (T score from -1.1 to -2.4: OSTEOPENIA) (T score less than or equal to -2.5 to: OSTEOPOROSIS) Impression: Bone mineral density is within normal limits. Patients with diagnosis of osteoporosis or osteopenia should have regular bone mineral density assess ment. For those eligible for Medicare, routine testing is allowed once every 2 years. Testing frequ ency can be increased for patients who have rapidly progressing disease or for those who are receivin g medical therapy to restore bone mass. Reviewed by: Deny Mann MD on 01/28/2023 5:01 PM PDT Approved by: Deny Mann MD on 01/28/2023 5:01 PM PDT Station ID: [id number]
== END 2023-01-28 14:39 | disposition home or self-care (01) ==
LOC: DI 14:38
PROVIDERS: ATTEND Physician Assistant
DX: N95.9 Unspecified menopausal and perimenopausal disorder (principal)

== ENCOUNTER 2023-03-25 14:30 | Outpatient (CLI) | payer MEDICARE, MEDICAID | END 2023-03-25 14:45 | disposition home or self-care (01) | LOC: LAB.N 14:30 | PROVIDERS: ATTEND Physician Assistant | DX: N30.00 Acute cystitis without hematuria (principal) | CPT/HCPCS: 87086; 87181 ==

== ENCOUNTER 2023-04-15 08:51 | Outpatient (CLI) | payer MEDICARE, MEDICAID ==
[2023-04-15 12:09] LABS: BASOPHILS # (AUTO) 0.1 10^3/uL (0.0-0.1); BASOPHILS % (AUTO) 0.7 %; EOSINOPHILS # (AUTO) 0.1 10^3/uL (0.0-0.7); EOSINOPHILS % (AUTO) 1.6 %; HCT - HEMATOCRIT 42.3 % (37.0-47.0); HGB - HEMOGLOBIN 13.6 g/dL (12.0-16.0); LYMPHOCYTES # (AUTO) 1.8 10^3/uL (1.5-3.5); LYMPHOCYTES % (AUTO) 25.8 %; MEAN CORPUSCULAR HEMOGLOBIN 29.4 pg (27.0-31.0); MEAN CORPUSCULAR HGB CONC 32.2 g/dL (32.0-36.0); MEAN CORPUSCULAR VOLUME 91.4 fL (81.0-99.0); MEAN PLATELET VOLUME 10.6 fL (7.9-10.8); MONOCYTES # (AUTO) 0.5 10^3/uL (0.0-1.0); MONOCYTES % (AUTO) 7.7 %; NEUTROPHILS # (AUTO) 4.4 10^3/uL (1.5-6.6); NEUTROPHILS % (AUTO) 63.8 %; PLT - PLATELET COUNT 249 10^3/uL (130-450); RED BLOOD COUNT 4.63 10^6/uL (4.20-5.40); RED CELL DISTRIBUTION WIDTH 13.2 % (12.0-15.0); WHITE BLOOD COUNT 6.9 x10^3/uL (4.8-10.8)
[2023-04-15 12:26] LABS: ALBUMIN 4.1 g/dL (3.2-5.5); ALKALINE PHOSPHATASE 63 IU/L (42-121); ALT ALANINE AMINOTRANSFERASE 15 IU/L (10-60); AST ASPARTATE AMINOTRANSFERASE 14 IU/L (10-42); BILIRUBIN,TOTAL 0.6 mg/dL (0.2-1.0); BUN - BLOOD UREA NITROGEN 47 mg/dL (6-20); CALCIUM 9.8 mg/dL (8.5-10.3); CARBON DIOXIDE - CO2 27 mmol/L (21-32); CHLORIDE 104 mmol/L (101-111); CHOL/HDL RATIO 3.2 (<4.4); CHOLESTEROL 177 mg/dL; CREATININE 1.7 mg/dL (0.4-1.0); GFR - MDRD 30 (>89); GLUCOSE 111 mg/dL (70-100); HDL CHOLESTEROL 55 mg/dL; LDL CHOLESTEROL,CALCULATED 102 mg/dL; LDL/HDL RATIO 1.9 (<4.4); POTASSIUM 4.3 mmol/L (3.5-5.0); SODIUM 137 mmol/L (135-145); TOTAL PROTEIN 8.3 g/dL (6.7-8.2); TRIGLYCERIDES 98 mg/dL; VLDL CHOLESTEROL 20 mg/dL
[2023-04-15 12:36] LABS: THYROID STIMULATING HORMONE 1.15 uIU/mL (0.34-5.60)
[2023-04-15 12:57] LABS: ESTIMATED AVERAGE GLUCOSE 120 mg/dL (70-100); HEMOGLOBIN A1c% 5.8 % (4.27-6.07)
== END 2023-04-15 08:52 | disposition home or self-care (01) ==
LOC: LAB.N 08:51
PROVIDERS: ATTEND Family Medicine
DX: I10 Essential (primary) hypertension (principal); R73.9 Hyperglycemia, unspecified; H81.09 Meniere's disease, unspecified ear; E78.00 Pure hypercholesterolemia, unspecified; F32.A Depression, unspecified
CPT/HCPCS: 36415; 80053; 80061; 83036; 83721; 84443; 85025

== ENCOUNTER 2023-07-14 08:00 | Outpatient (CLI) | payer MEDICARE, MEDICAID ==
[2023-07-14 12:02] LABS: BILIRUBIN,URINE NEGATIVE (NEGATIVE); GLUCOSE, URINE (UA) NEGATIVE (NEGATIVE); KETONES,URINE (UA) NEGATIVE (NEGATIVE); LEUKOCYTE ESTERASE, URINE NEGATIVE (NEGATIVE); NITRITE,URINE NEGATIVE (NEGATIVE); OCCULT BLOOD,URINE LARGE (NEGATIVE); PH,URINE 5.5 PH (5.0-7.5); PROTEIN,URINE NEGATIVE (NEGATIVE); UROBILINOGEN,URINE 0.2 (NORMAL) E.U./dL (NORMAL)
[2023-07-14 12:04] LABS: CLARITY,URINE CLEAR (CLEAR)
[2023-07-14 12:29] LABS: BACTERIA,URINE Few /HPF (None Seen); SQUAMOUS EPITHELIAL CELL,UR MOD Squamous (<= Few); WBC,URINE 0-3 /HPF (0-5)
== END 2023-07-14 23:58 | disposition home or self-care (01) ==
LOC: LAB.N 08:00
PROVIDERS: ATTEND Physician Assistant Medical
DX: R31.9 Hematuria, unspecified (principal)
CPT/HCPCS: 81001; 87086

== ENCOUNTER 2023-07-15 14:39 | Outpatient (CLI) | payer MEDICARE, MEDICAID ==
[2023-07-15 17:53] LABS: ALBUMIN 4.1 g/dL (3.2-5.5); ALBUMIN/GLOBULIN RATIO 1.4 (1.0-2.2); BILIRUBIN,TOTAL 0.4 mg/dL (0.2-1.0); CALCIUM 9.8 mg/dL (8.5-10.3); CREATININE 1.2 mg/dL (0.6-1.3); POTASSIUM 3.8 mmol/L (3.5-4.5); TOTAL PROTEIN 7.1 g/dL (6.4-8.9)
[2023-07-15 18:15] LABS: BASOPHILS # (AUTO) 0.1 10^3/uL (0.0-0.1); BASOPHILS % (AUTO) 0.8 %; EOSINOPHILS # (AUTO) 0.1 10^3/uL (0.0-0.7); EOSINOPHILS % (AUTO) 1.1 %; FERRITIN 65.2 ng/mL (11.0-306.8); HCT - HEMATOCRIT 39.6 % (37.0-47.0); HGB - HEMOGLOBIN 12.5 g/dL (12.0-16.0); LYMPHOCYTES # (AUTO) 2.1 10^3/uL (1.5-3.5); LYMPHOCYTES % (AUTO) 24.6 %; MEAN CORPUSCULAR HEMOGLOBIN 29.2 pg (27.0-31.0); MEAN CORPUSCULAR HGB CONC 31.6 g/dL (32.0-36.0); MEAN CORPUSCULAR VOLUME 92.5 fL (81.0-99.0); MEAN PLATELET VOLUME 10.9 fL (7.9-10.8); MONOCYTES # (AUTO) 0.7 10^3/uL (0.0-1.0); MONOCYTES % (AUTO) 7.6 %; NEUTROPHILS # (AUTO) 5.7 10^3/uL (1.5-6.6); NEUTROPHILS % (AUTO) 65.4 %; PLT - PLATELET COUNT 243 10^3/uL (130-450); RED BLOOD COUNT 4.28 10^6/uL (4.20-5.40); RED CELL DISTRIBUTION WIDTH 13.2 % (12.0-15.0); WHITE BLOOD COUNT 8.7 x10^3/uL (4.8-10.8)
== END 2023-07-15 14:40 | disposition home or self-care (01) ==
LOC: LAB.N 14:39
PROVIDERS: ATTEND Physician Assistant Medical
DX: N95.0 Postmenopausal bleeding (principal)
CPT/HCPCS: 36415; 80053; 80069; 82728; 85025

== ENCOUNTER 2023-08-27 13:03 | Outpatient (CLI) | payer MEDICARE, MEDICAID ==
[2023-08-27 18:21] LABS: CALCIUM 10.1 mg/dL (8.5-10.3); CREATININE 1.2 mg/dL (0.6-1.3); POTASSIUM 4.2 mmol/L (3.5-4.5)
[2023-08-27 20:24] LABS: ESTIMATED AVERAGE GLUCOSE 114 mg/dL (70-100); HEMOGLOBIN A1c% 5.6 % (4.27-6.07)
== END 2023-08-27 13:04 | disposition home or self-care (01) ==
LOC: LAB.N 13:03
PROVIDERS: ATTEND Family Medicine
DX: I10 Essential (primary) hypertension (principal); R73.03 Prediabetes; E66.9 Obesity, unspecified; H81.09 Meniere's disease, unspecified ear
CPT/HCPCS: 36415; 80048; 83036

== ENCOUNTER 2023-12-30 08:00 | Outpatient (CLI) | payer MEDICARE, MEDICAID | END 2023-12-30 23:59 | disposition home or self-care (01) | LOC: LAB.R 08:00 | PROVIDERS: ATTEND Urology | DX: N33 Bladder disorders in diseases classified elsewhere (principal) | CPT/HCPCS: 87086; 87181 ==

== ENCOUNTER 2024-01-29 12:04 | Outpatient (CLI) | payer MEDICARE, MEDICAID ==
[2024-01-29 19:00] LABS: CREATININE,URINE 78.2 mg/dL
== END 2024-01-29 12:05 | disposition home or self-care (01) ==
LOC: LAB.N 12:04
DX: C43.72 Malignant melanoma of left lower limb, including hip (principal); Z79.899 Other long term (current) drug therapy
CPT/HCPCS: 36415; 82570; 84295; 84300

== ENCOUNTER 2024-03-19 10:31 | Outpatient (CLI) | payer MEDICARE, MEDICAID | END 2024-03-19 23:59 | disposition critical access hospital (66) | LOC: EMS 10:31 | PROVIDERS: ATTEND Emergency Medicine | DX: R03.1 Nonspecific low blood-pressure reading (principal); R53.81 Other malaise; R51.9 Headache, unspecified; R47.9 Unspecified speech disturbances; M54.9 Dorsalgia, unspecified | CPT/HCPCS: A0425; A0427 ==

== ENCOUNTER 2024-03-19 10:49 | Inpatient (IN) | payer MEDICARE, MEDICAID ==
[2024-03-19] MEDS: SODIUM CHLORIDE 0.9% 1,000 ML IV STA ×2 (11:11→12:47)
[2024-03-19 11:34] LABS: BASOPHILS # (AUTO) 0.1 10^3/uL (0.0-0.1); BASOPHILS % (AUTO) 0.6 %; EOSINOPHILS % (AUTO) 0.2 %; HCT - HEMATOCRIT 48.8 % (37.0-47.0); HGB - HEMOGLOBIN 15.8 g/dL (12.0-16.0); LYMPHOCYTES # (AUTO) 2.3 10^3/uL (1.5-3.5); LYMPHOCYTES % (AUTO) 16.5 %; MEAN CORPUSCULAR HGB CONC 32.4 g/dL (32.0-36.0); MEAN CORPUSCULAR VOLUME 89.7 fL (81.0-99.0); MEAN PLATELET VOLUME 9.9 fL (7.9-10.8); MONOCYTES % (AUTO) 6.9 %; NEUTROPHILS # (AUTO) 10.4 10^3/uL (1.5-6.6); NEUTROPHILS % (AUTO) 75.2 %; PLT - PLATELET COUNT 271 10^3/uL (130-450); RED BLOOD COUNT 5.44 10^6/uL (4.20-5.40); RED CELL DISTRIBUTION WIDTH 15.4 % (12.0-15.0); WHITE BLOOD COUNT 13.9 x10^3/uL (4.8-10.8)
[2024-03-19 11:48] LABS: ACETAMINOPHEN 0.2 ug/mL; ETOH - ETHANOL < 10.0 mg/dL; LIPASE 132 U/L (11-82); MAGNESIUM 2.2 mg/dL (1.7-2.3)
[2024-03-19 11:52] LABS: BILIRUBIN,URINE NEGATIVE (NEGATIVE); GLUCOSE, URINE (UA) NEGATIVE (NEGATIVE); KETONES,URINE (UA) NEGATIVE (NEGATIVE); LEUKOCYTE ESTERASE, URINE SMALL (NEGATIVE); NITRITE,URINE POSITIVE (NEGATIVE); OCCULT BLOOD,URINE NEGATIVE (NEGATIVE); PH,URINE 5.5 PH (5.0-7.5); PROTEIN,URINE NEGATIVE (NEGATIVE); UROBILINOGEN,URINE 0.2 (NORMAL) E.U./dL (NORMAL)
[2024-03-19 11:53] LABS: ALBUMIN 4.3 g/dL (3.2-5.5); ALBUMIN/GLOBULIN RATIO 1.4 (1.0-2.2); ALKALINE PHOSPHATASE 60 IU/L (42-121); ALT ALANINE AMINOTRANSFERASE 16 IU/L (10-60); AST ASPARTATE AMINOTRANSFERASE 15 IU/L (10-42); BILIRUBIN,TOTAL 0.6 mg/dL (0.2-1.0); BUN - BLOOD UREA NITROGEN 87 mg/dL (6-20); CALCIUM 10.4 mg/dL (8.5-10.3); CARBON DIOXIDE - CO2 24 mmol/L (21-32); CHLORIDE 101 mmol/L (101-111); GFR - MDRD 16 (>89); GLUCOSE 135 mg/dL (74-104); POTASSIUM 3.8 mmol/L (3.5-4.5); SALICYLATE < 1.5 mg/dL; SODIUM 136 mmol/L (135-145); TOTAL PROTEIN 7.4 g/dL (6.4-8.9)
[2024-03-19 11:54] LABS: CLARITY,URINE HAZY (CLEAR)
[2024-03-19 11:58] LABS: BACTERIA,URINE Moderate /HPF (None Seen); CASTS, URINE 6-10 Hyaline Casts /LPF; RBC,URINE None Seen /HPF (0-5); SQUAMOUS EPITHELIAL CELL,UR FEW Squamous (<= Few); WBC CLUMPS,URINE PRESENT
[2024-03-19 12:01] LABS: AMPHETAMINE SCREEN,URINE NEGATIVE (NEGATIVE); BARBITURATE SCREEN,UR NEGATIVE (NEGATIVE); BENZODIAZEPINES SCREEN, URINE NEGATIVE (NEGATIVE); BUPRENORPHINE SCREEN, URINE NEGATIVE (NEGATIVE); COCAINE SCREEN URINE NEGATIVE (NEGATIVE); METHADONE SCREEN, URINE NEGATIVE (NEGATIVE); METHAMPHETAMINES SCREEN, URINE NEGATIVE (NEGATIVE); OPIATE SCREEN, URINE NEGATIVE (NEGATIVE); OXYCODONE SCREEN, URINE NEGATIVE (NEGATIVE); THC CANNABINOID SCREEN, URINE NEGATIVE (NEGATIVE); TRICYCLIC ANTIDEPRESSANT,URINE NEGATIVE (NEGATIVE)
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
[2024-03-19 12:31] LABS: B. PARAPERTUSSIS- RESP PCR PAN NOT DETECTED; B. PERTUSSIS- RESP PCR PANEL NOT DETECTED; C. PNEUMONIAE- RESP PCR PANEL NOT DETECTED; CORONAVIRUS 229E-RESP PCR NOT DETECTED; CORONAVIRUS HKU1-RESP PCR NOT DETECTED; CORONAVIRUS NL63-RESP PCR NOT DETECTED; CORONAVIRUS OC43-RESP PCR NOT DETECTED; HUMAN METAPNEUMOVIRUS NOT DETECTED; INFLUENZA A- RESP PCR PANEL NOT DETECTED; INFLUENZA B - RESP PCR PANEL NOT DETECTED; M. PNEUMONIAE- RESP PCR PANEL NOT DETECTED; PARAINFLUENZA VIRUS 1 NOT DETECTED; PARAINFLUENZA VIRUS 2 NOT DETECTED; PARAINFLUENZA VIRUS 3 NOT DETECTED; PARAINFLUENZA VIRUS 4 NOT DETECTED; RHINOVIRUS/ENTEROVIRUS NOT DETECTED; RSV- RESP PCR PANEL NOT DETECTED; SARS-CoV-2 -RESP PCR PANEL NOT DETECTED
[2024-03-19] MEDS: cefTRIAXone 1 GM VIAL IVP STA (12:37)
[2024-03-19] MEDS ORDERED: SODIUM CHLORIDE FLUSH 0.9% 10 ML SYRINGE IVP PRN (13:31)
[2024-03-19] MEDS ORDERED: ACETAMINOPHEN 325 MG TABLET PO PRN (13:33)
--- NOTE | 2024-03-19 13:36 | CT Report ---
PROCEDURE: Head WO INDICATIONS: altered mental status TECHNIQUE: Noncontrast 4.5 mm thick angled axial sections acquired from the foramen magnum to the vertex. For r adiation dose reduction, the following was used: automated exposure control, adjustment of mA and/or kV according to patient size. COMPARISON: None. FINDINGS: Image quality: Excellent. CSF spaces: Basal cisterns are patent. No extra-axial fluid collections. Ventricles are normal in size and shape. Brain: Diffuse parenchymal volume loss with expansion of CSF containing spaces. Periventricular whit e matter hypodensities consistent with chronic microvascular ischemic disease. No midline shift. No intracranial masses or hemorrhage. Gonzalez-white matter interface is normal. Skull and face: Calvarium and visualized facial bones are intact, without suspicious lesions. Sinuses: Visualized sinuses and mastoids are clear. IMPRESSION: No acute intracranial pathology. Sequelae of chronic microvascular ischemic disease. Reviewed by: Khanh Goins MD on 03/19/2024 12:35 PM CURRY Approved by: Khanh Goins MD on 03/19/2024 12:35 PM CURRY Station ID: [id number]
[2024-03-19 14:26] LABS: CREATININE,URINE < 1.0 mg/dL; SODIUM, URINE < 10.0 mmol/L
[2024-03-19] MEDS: SODIUM CHLORIDE 0.9% 1,000 ML IV SCH (14:38)
--- NOTE | 2024-03-19 16:48 | HISTORY & PHYSICAL EXAMINATION ---
Chief Complaint - Chief Complaint Chief Complaint: I felt dizzy History of Present Illness - Admitted From Admitted From:: Emergency Department - History Obtained From Records Reviewed: EMR History obtained from: Patient Exam Limitations: Patient is confused and tangential with her history - History of Present Illness HPI Comment/Other: The patient is a 60-year-old female with a history of type 2 diabetes, CKD stage III, carotid stenosis, hypertension, history of CVA with residual gait ataxia, expressive aphasia and cognitive deficits. The patient presents today to the emergency department with confusion. History and review of systems are fairly limited as the patient is extremely tangential, emotionally labile and her underlying expressive aphasia complicates interactions.EMS was contacted today by bystanders who noted that the patient seemed to be confused. Apparently the patient was going to [facility] to have some blood drawn but they were closed today and she subsequently became dizzy. She later self down on the ground and started to wave her phone around to flag somebody down and the pedestrian ultimately came to her aid and called 911. The patient was unable to accurately describe what was going on with her due to her underlying hyperverbal and tangential speech. She was brought to the emergency department where her vitals were unremarkable she was noted to have acute kidney injury with a creatinine of 3.0 and BUN of 87. Her lactic acid and UDS were both negative however she did have evidence of urinary tract infection. A CT of her head was negative for acute pathology and she was given IV ceftriaxone along with 1.5 L of IV fluids, and then admitted for further care due to her confusion and acute kidney injury. Of note the patient reports that over the past couple months she has been having intermittent dizzy episodes and presyncope, however she has never fully passed out. She denies any palpitations, chest pain, pleurisy, dyspnea, fevers, chills, vomiting or diarrhea. She does mention that she has a history of cancer and is currently on prednisone along with Keytruda, though she cannot give me details of the cancer or her oncologist as her speech is too tangential. Of note she was hospitalized at [facility] in September 2022 with a similar presentation of presyncope and acute kidney injury. During that hospitalization she was noted to be hyperverbal, emotionally labile, tangential speech, which were all felt to be residual effects from her hutchinson radiata CVA. Telepsych was consulted during that hospitalization and she was placed on Zyprexa. Also during that hospitalization apparently previous professional life friends excepted to be DURABLE POWER OF ASSOCIATE CIVIL ENGINEER for her. They lived in [facility], and drove to [place] to pick her up from the hospital and take her back to [place]. The patient indicates that she did go to [place] but apparently they did not get along and she ultimately came back to [place], though it is unclear how long ago this happened. 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 Smoked too much. of heart disease. Mom also approximately age 79. Cannot remember what was wrong with her. 1 brother. Lives in [place]. She has not seen him in decades and could not say anything about them. 1 son. Mental illness. Pedophile. Sex offenders list. Was living with her until she had him evicted from her apartment this month Living Situation: Alone Social History Notes: Yancy and Slava Slaughter ([phone]) are very close friends for years. They are not POA, she was in process of doing that and she didn't. Gilbert, is an Former unindentured apprentice, and she calls him her nephew. She would like me to contact these 3 people to update them on her condition. However she does not want me to speak to her son. Born in [place] and raised in the [facility]. Dual citizenship. 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 Single mom that never really kept up with the father of her only child. Lives in her own apartment in [place]. Fixed income from Social Security. Started smoking at the age of 15, 2 packs/day, quit age 65 for the most part. Vapes now. But occasionally picks up a cigarette. Reformed alcoholic. Was an alcoholic for about a decade. Quit abusing alcohol in her late 20s. Still drinks occasionally - Substance History Use: Uses substance without health or social issues: Alcohol - POLST Patient has POLST: No Meds/Allgy - Home Medications Home Medications: Ambulatory Orders Medication Instructions Recorded Confirmed Aspirin [Aspirin EC] 81 mg PO DAILY #100 tab 09/26/22 Atorvastatin [Lipitor] 20 mg PO DAILY #30 tablet 09/26/22 Clopidogrel [Plavix] 75 mg PO DAILY #30 tablet 09/26/22 Metoprolol Succinate [Toprol Xl] 50 mg PO DAILY #30 tablet 09/29/22 lisinopriL [Zestril] 20 mg PO DAILY #30 tablet 09/29/22 - Allergies Allergies/Adverse Reactions: Allergies Allergy/AdvReac Type Severity Reaction Status Date / Time No Known Drug Allergies Allergy Verified 09/14/22 10:13 Review of Systems - Constitutional Constitutional: reports: Fatigue, Malaise, Poor appetite - Eyes Eyes: reports: Blurred vision - Ears, Nose & Throat Ears, Nose & Throat: reports: Tinnitus, Vertigo (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 denies: Palpitations, Chest pain, Syncope, Exertional dyspnea - Respiratory Respiratory: denies: Cough, Sputum production, Hemoptysis, Orthopnea, SOB at rest, Pleuritic pain - Gastrointestinal Gastrointestinal: denies: Abdominal pain, Abdominal distention, Diarrhea, Black stools, Bloody stools, Nausea - Genitourinary Genitourinary: reports: Frequency. denies: Dysuria, Urgency - Musculoskeletal Musculoskeletal: reports: Muscle pain - Integumentary Integumentary: denies: Rash - Neurological Neurological: reports: General weakness, Dizziness, Memory problems, Pre- existing deficit, Abnormal gait, Other (Expressive aphasia). denies: Focal we akness, Headache, Numbness - Psychiatric Psychiatric: reports: Depression, Anxiety - Endocrine Endocrine: denies: Polyuria - Hematologic/Lymphatic Hematologic/Lymphatic: reports: Other (Cancer) Prior Level of Functionality: Ambulatory Exam - Vital Signs Reviewed Vital Signs: Yes Vital Signs: Vital Signs x48h Temp Pulse Pulse Resp BP BP Pulse Ox 03/19/24 16:00 36.6 C 68 18 114/63 97 03/19/24 14:54 36.7 C 83 18 129/80 97 03/19/24 10:53 36.3 C L 92 18 105/69 96 - Physical Exam General Appearance: positive: Alert, Anxious, Other (Hyper-verbal, very tangential speech, word salad) Eyes Bilateral: positive: Normal inspection, PERRL, EOMI ENT: positive: Pharynx nml, Dry mucous membranes Neck: positive: Nml inspection, Thyroid nml, No JVD, Trachea midline Respiratory: positive: No respiratory distress, Breath sounds nml. negative: Wheezes, Rales, Rhonchi Cardiovascular: positive: Regular rate & rhythm, No murmur, No gallop Peripheral Pulses: positive: 2+ Abdomen: positive: Non-tender, No organomegaly, Nml bowel sounds, No distention Back: positive: Nml inspection. negative: CVA tenderness (R), CVA tenderness (L) Skin: positive: Color nml, No rash, Warm, Dry Extremities: positive: Non-tender, Full ROM, No pedal edema Neurologic/Psychiatric: positive: CN's nml (2-12), Motor nml, Sensation nml, Other (Oriented to person, place but not date) Comments/Other: She is emotionally labile, going from laughing out loud to cry in the middle of a sentence. She has word salad at times that is not congruent with what she was trying to convey. She also had very tangential thoughts that were not addressing the issues at hand. Sepsis Event Note (H) - Evaluation Current Stage of Sepsis: Ruled out Conclusion/Plan - Problem List (1) Acute kidney injury superimposed on CKD Conclusion/Plan: She has baseline CKD with a creatinine ranging from 1.2-1.5 as of 2021. It is unclear what her renal function has been recently however she states she does follow with a stripe marker, though she cannot tell me further details on that. I suspect that her current creatinine is acute worsening due to dehydration as she is not eating or drinking much. -Avoid nephrotoxic medications and renally dose medications as appropriate. -Provide IV fluids. -Check CK. Obtain urine electrolytes to calculate FENa. -Repeat chemistry panel in the morning. -If kidney function is not improving or slow to improve, would obtain renal ultrasound. (2) Acute metabolic encephalopathy Conclusion/Plan: Her confusion is multifactorial in nature, though at baseline it appears that she may appear confused to people who do not know her. She has a history of tangential speech, emotional lability, expressive aphasia and word salad that would make conversing with her extremely difficult. Nevertheless she probably has an acute component of confusion secondary to urinary tract infection along w ith ESTEFANIA and uremia. -Will treat her ESTEFANIA as noted above with IV fluids. -Treat her urinary tract infection as noted below. -Check TSH, vitamin B12, folate. -Can consider reinitiating Zyprexa if she develops agitation. (3) UTI (urinary tract infection) Conclusion/Plan: May need to rediscuss she has a history of E. coli urinary tract infections in the past. She denies any dysuria though has had urinary urge and frequency at times though overall has had low urine output. -Continue IV ceftriaxone. -Await urine cultures. Qualifiers: Urinary tract infection type: acute cystitis Hematuria presence: without hematuria Qualified Code(s): N30.00 - Acute cystitis without hematuria (4) Uremia Conclusion/Plan: Her uremia is likely due to her acute kidney injury along with underlying CKD. No evidence of GI bleeding at this time. -Follow daily CHEM panels as noted above. (5) Psychiatric disorder Conclusion/Plan: She required telepsych consultation during her last hospitalization in September 2022. During that time she had a similar presentation as she currently has, with hyperverbal speech pattern, emotional lability, word salad, tangential thought process. -May need to resume oral Zyprexa. It is unclear when she stopped taking this. (6) Sequela of lacunar infarction Conclusion/Plan: She has a history of a hutchinson radiata CVA in the past, which can present with emotional lability, expressive aphasia and cognitive defects. It was felt that her underlying psychiatric disorder/presentation may be a result of her previous CVA. -Resume home aspirin, clopidogrel and atorvastatin. (7) Hypertension Conclusion/Plan: Currently her blood pressure is controlled. It is unclear if she is currently taking previously prescribed lisinopril and metoprolol XL. -Would hold lisinopril if she is in fact taking this due to her ESTEFANIA. -Will hold on resuming metoprolol XL as her blood pressure is not significantly elevated and she has a history of frequent orthostatic dizziness. Qualifiers: Hypertension type: primary hypertension Qualified Code(s): I10 - Essential (primary) hypertension (8) Carotid stenosis Conclusion/Plan: During her hospitalization in September 2022 she had a neck CTA that showed 80% proximal right ICA stenosis. She was placed on aspirin and clopidogrel at that time and advised to follow-up with vascular surgeon however it is unclear if this occurred. -No indication that she is having an acute neurologic event this hospitalization. -Resume aspirin, clopidogrel, atorvastatin. Qualifiers: Laterality: right Qualified Code(s): I65.21 - Occlusion and stenosis of right carotid artery (9) Type II diabetes mellitus Conclusion/Plan: Currently she is not taking medications for this diagnosis. -Diabetic diet. Check A1c. -Sliding scale insulin for the time being. Qualifiers: Diabetes mellitus rodent exterminator insulin use: without rodent exterminator use Diabetes me llitus complication status: with kidney complications Diabetes mellitus c omplication detail: with chronic kidney disease Chronic kidney disease stage 3 subtype: unspecified whether 3a or 3b - Lab Results Fish Bones: 03/19/24 11:28 03/19/24 11:28 Other Lab Results: Laboratory Results 03/19/24 11:44: Urine Creatinine < 1.0, Urine Sodium < 10.0 03/19/24 11:44: Urine Color YELLOW, Urine Clarity HAZY, Urine pH 5.5, Ur Specific [place] 1.025, Urine Protein NEGATIVE, Urine Glucose (UA) NEGATIVE, Urine Ketones NEGATIVE, Urine Occult Blood NEGATIVE, Urine Nitrite POSITIVE H, Urine Bilirubin NEGATIVE, Urine Urobilinogen 0.2 (NORMAL), Ur Leukocyte Esterase SMALL H, Urine RBC None Seen, Urine WBC 6-10 H, Urine WBC Clumps PRESENT, Ur Squamous Epith Cells FEW Squamous, Urine Bacteria Moderate H, Urine Casts 6-10 H yaline Casts, Ur Microscopic Review INDICATED, Urine Culture Comments INDICATED, Urine Opiates Screen NEGATIVE, Ur Buprenorphine Scrn NEGATIVE, Ur Oxycodone Screen NEGATIVE, Urine Methadone Screen NEGATIVE, Ur Barbiturates Screen NEGATIVE, Ur Tricyclics Screen NEGATIVE, Ur Phencyclidine Scrn NEGATIVE, Ur Amphetamine Screen NEGATIVE, U Methamphetamines Scrn NEGATIVE, U Benzodiazepines Scrn NEGATIVE, Urine Cocaine Screen NEGATIVE, U Cannabinoids Screen NEGATIVE, Ur Drug Screen Comment CUTOFF CONC BELOW: 03/19/24 11:31: Nasal Adenovirus (PCR) NOT DETECTED, Nasal B. parapertussis DNA (PCR) NOT DETECTED, Nasal Coronavir 229E PCR NOT DETECTED, Nasal Coronavir HKU1 PCR NOT DETECTED, Nasal Coronavir NL63 PCR NOT DETECTED, Nasal Coronavir OC43 PCR NOT DETECTED, Nasal Enterovir/Rhinovir PCR NOT DETECTED, Nasal Influenza B PCR NOT DETECTED, Nasal Influenza A PCR NOT DETECTED, Nasal Parainfluen 1 PCR NOT DETECTED, Nasal Parainfluen 2 PCR NOT DETECTED, Nasal Parainfluen 3 PCR NOT DETECTED, Nasal Parainfluen 4 PCR NOT DETECTED, Nasal RSV (PCR) NOT DETECTED, Nasal B.pertussis DNA PCR NOT DETECTED, Nasal C.pneumoniae (PCR) NOT DETECTED, Arnold Human Metapneumo PCR NOT DETECTED, Nasal M.pneumoniae (PCR) NOT DETECTED, Nasal SARS-CoV-2 (PCR) NOT DETECTED 03/19/24 11:: Total Creatine Kinase 27 L 03/19/24 11:28: Lactic Acid 1.3 03/19/24 11:: Sodium 136, Potassium 3.8, Chloride 101, Carbon Dioxide 24, Anion Gap 11.0, BUN 87 H*, Creatinine 3.0 H, Estimated GFR (MDRD) 16 L, Glucose 135 H, Calcium 10.4 H, Magnesium 2.2, Total Bilirubin 0.6, AST 15, ALT 16, Alkaline Phosphatase 60, Total Protein 7.4, Albumin 4.3, Globulin 3.1, Albumin/Globulin Ratio 1.4, Lipase 132 H, Salicylates < 1.5, Acetaminophen 0.2, Ethyl Alcohol < 10.0 03/19/24 11:28: WBC 13.9 H, RBC 5.44 H, Hgb 15.8, Hct 48.8 H, MCV 89.7, MCH 29.0, MCHC 32.4, RDW 15.4 H, Plt Count 271, MPV 9.9, Neut # (Auto) 10.4 H, Lymph # (Auto) 2.3, [place] # (Auto) 1.0, Eos # (Auto) 0.0, Baso # (Auto) 0.1, Absolute Nucleated RBC 0.00, Nucleated RBC % 0.0 Laboratory Results - last 24 hr 03/19/24 03/19/24 03/19/24 11: 11: 11:28 WBC 13.9 H RBC 5.44 H Hgb 15.8 Hct 48.8 H MCV 89.7 MCH 29.0 MCHC 32.4 RDW 15.4 H Plt Count 271 MPV 9.9 Neut # (Auto) 10.4 H Lymph # (Auto) 2.3 [place] # (Auto) 1.0 Eos # (Auto) 0.0 Baso # (Auto) 0.1 Absolute Nucleated RBC 0.00 Nucleated RBC % 0.0 Sodium 136 Potassium 3.8 Chloride 101 Carbon Dioxide 24 Anion Gap 11.0 BUN 87 H* Creatinine 3.0 H Estimated GFR (MDRD) 16 L Glucose 135 H Lactic Acid 1.3 Calcium 10.4 H Magnesium 2.2 Total Bilirubin 0.6 AST 15 ALT 16 Alkaline Phosphatase 60 Total Creatine Kinase Total Protein 7.4 Albumin 4.3 Globulin 3.1 Albumin/Globulin Ratio 1.4 Lipase 132 H Urine Color Urine Clarity Urine pH Ur Specific [place] Urine Protein Urine Glucose (UA) Urine Ketones Urine Occult Blood Urine Nitrite Urine Bilirubin Urine Urobilinogen Ur Leukocyte Esterase Urine RBC Urine WBC Urine WBC Clumps Ur Squamous Epith Cells Urine Bacteria Urine Casts Ur Microscopic Review Urine Culture Comments Urine Creatinine Urine Sodium Nasal Adenovirus (PCR) Nasal B. parapertussis DNA (PCR) Nasal Coronavir 229E PCR Nasal Coronavir HKU1 PCR Nasal Coronavir NL63 PCR Nasal Coronavir OC43 PCR Nasal Enterovir/Rhinovir PCR Nasal Influenza B PCR Nasal Influenza A PCR Nasal Parainfluen 1 PCR Nasal Parainfluen 2 PCR Nasal Parainfluen 3 PCR Nasal Parainfluen 4 PCR Nasal RSV (PCR) Nasal B.pertussis DNA PCR Nasal C.pneumoniae (PCR) Arnold Human Metapneumo PCR Nasal M.pneumoniae (PCR) Nasal SARS-CoV-2 (PCR) Salicylates < 1.5 Urine Opiates Screen Ur Buprenorphine Scrn Ur Oxycodone Screen Urine Methadone Screen Acetaminophen 0.2 Ur Barbiturates Screen Ur Tricyclics Screen Ur Phencyclidine Scrn Ur Amphetamine Screen U Methamphetamines Scrn U Benzodiazepines Scrn Urine Cocaine Screen U Cannabinoids Screen Ur Drug Screen Comment Ethyl Alcohol < 10.0 03/19/24 03/19/24 03/19/24 11:28 11:31 11:44 WBC RBC Hgb Hct MCV MCH MCHC RDW Plt Count MPV Neut # (Auto) Lymph # (Auto) [place] # (Auto) Eos # (Auto) Baso # (Auto) Absolute Nucleated RBC Nucleated RBC % Sodium Potassium Chloride Carbon Dioxide Anion Gap BUN Creatinine Estimated GFR (MDRD) Glucose Lactic Acid Calcium Magnesium Total Bilirubin AST ALT Alkaline Phosphatase Total Creatine Kinase 27 L Total Protein Albumin Globulin Albumin/Globulin Ratio Lipase Urine Color YELLOW Urine Clarity HAZY Urine pH 5.5 Ur Specific [place] 1.025 Urine Protein NEGATIVE Urine Glucose (UA) NEGATIVE Urine Ketones NEGATIVE Urine Occult Blood NEGATIVE Urine Nitrite POSITIVE H Urine Bilirubin NEGATIVE Urine Urobilinogen 0.2 (NORMAL) Ur Leukocyte Esterase SMALL H Urine RBC None Seen Urine WBC 6-10 H Urine WBC Clumps PRESENT Ur Squamous Epith Cells FEW Squamous Urine Bacteria Moderate H Urine Casts 6-10 Hyaline Casts Ur Microscopic Review INDICATED Urine Culture Comments INDICATED Urine Creatinine Urine Sodium Nasal Adenovirus (PCR) NOT DETECTED Nasal B. parapertussis DNA (PCR) NOT DETECTED Nasal Coronavir 229E PCR NOT DETECTED Nasal Coronavir HKU1 PCR NOT DETECTED Nasal Coronavir NL63 PCR NOT DETECTED Nasal Coronavir OC43 PCR NOT DETECTED Nasal Enterovir/Rhinovir PCR NOT DETECTED Nasal Influenza B PCR NOT DETECTED Nasal Influenza A PCR NOT DETECTED Nasal Parainfluen 1 PCR NOT DETECTED Nasal Parainfluen 2 PCR NOT DETECTED Nasal Parainfluen 3 PCR NOT DETECTED Nasal Parainfluen 4 PCR NOT DETECTED Nasal RSV (PCR) NOT DETECTED Nasal B.pertussis DNA PCR NOT DETECTED Nasal C.pneumoniae (PCR) NOT DETECTED Arnold Human Metapneumo PCR NOT DETECTED Nasal M.pneumoniae (PCR) NOT DETECTED Nasal SARS-CoV-2 (PCR) NOT DETECTED Salicylates Urine Opiates Screen NEGATIVE Ur Buprenorphine Scrn NEGATIVE Ur Oxycodone Screen NEGATIVE Urine Methadone Screen NEGATIVE Acetaminophen Ur Barbiturates Screen NEGATIVE Ur Tricyclics Screen NEGATIVE Ur Phencyclidine Scrn NEGATIVE Ur Amphetamine Screen NEGATIVE U Methamphetamines Scrn NEGATIVE U Benzodiazepines Scrn NEGATIVE Urine Cocaine Screen NEGATIVE U Cannabinoids Screen NEGATIVE Ur Drug Screen Comment CUTOFF CONC BELOW: Ethyl Alcohol 03/19/24 11:44 WBC RBC Hgb Hct MCV MCH MCHC RDW Plt Count MPV Neut # (Auto) Lymph # (Auto) [place] # (Auto) Eos # (Auto) Baso # (Auto) Absolute Nucleated RBC Nucleated RBC % Sodium Potassium Chloride Carbon Dioxide Anion Gap BUN Creatinine Estimated GFR (MDRD) Glucose Lactic Acid Calcium Magnesium Total Bilirubin AST ALT Alkaline Phosphatase Total Creatine Kinase Total Protein Albumin Globulin Albumin/Globulin Ratio Lipase Urine Color Urine Clarity Urine pH Ur Specific [place] Urine Protein Urine Glucose (UA) Urine Ketones Urine Occult Blood Urine Nitrite Urine Bilirubin Urine Urobilinogen Ur Leukocyte Esterase Urine RBC Urine WBC Urine WBC Clumps Ur Squamous Epith Cells Urine Bacteria Urine Casts Ur Microscopic Review Urine Culture Comments Urine Creatinine < 1.0 Urine Sodium < 10.0 Nasal Adenovirus (PCR) Nasal B. parapertussis DNA (PCR) Nasal Coronavir 229E PCR Nasal Coronavir HKU1 PCR Nasal Coronavir NL63 PCR Nasal Coronavir OC43 PCR Nasal Enterovir/Rhinovir PCR Nasal Influenza B PCR Nasal Influenza A PCR Nasal Parainfluen 1 PCR Nasal Parainfluen 2 PCR Nasal Parainfluen 3 PCR Nasal Parainfluen 4 PCR Nasal RSV (PCR) Nasal B.pertussis DNA PCR Nasal C.pneumoniae (PCR) Arnold Human Metapneumo PCR Nasal M.pneumoniae (PCR) Nasal SARS-CoV-2 (PCR) Salicylates Urine Opiates Screen Ur Buprenorphine Scrn Ur Oxycodone Screen Urine Methadone Screen Acetaminophen Ur Barbiturates Screen Ur Tricyclics Screen Ur Phencyclidine Scrn Ur Amphetamine Screen U Methamphetamines Scrn U Benzodiazepines Scrn Urine Cocaine Screen U Cannabinoids Screen Ur Drug Screen Comment Ethyl Alcohol - Diagnostic Imaging Results Diagnostic Imaging Results: positive: Final report reviewed Core Measures - Anticipated LOS I expect patient to be DC'd or transferred within 96 hours.: Yes - DVT/VTE - Prophylaxis VTE/DVT Device ordered at admit?: Yes VTE/DVT Prophylaxis med ordered at admit?: Yes
[2024-03-19] MEDS: INSULIN LISPRO 300 UNIT/3 ML PEN SUBQ SCH (16:55)
[2024-03-19] MEDS: SODIUM CHLORIDE FLUSH 0.9% 10 ML SYRINGE IVP SCH (16:56)
[2024-03-19] MEDS: ASPIRIN CHEW 81 MG TABLET PO ONE (19:40)
[2024-03-19] MEDS: ATORVASTATIN 40 MG TABLET PO SCH (22:30)
[2024-03-19] MEDS: HEPARIN 5,000 UNIT/ML VIAL SUBQ SCH (22:31)
[2024-03-20] MEDS: ONDANSETRON 4 MG/2 ML VIAL IVP PRN (02:10)
[2024-03-20] MEDS: OLANZapine 10 MG VIAL IM ONE (03:55)
[2024-03-20 06:03] LABS: BASOPHILS # (AUTO) 0.1 10^3/uL (0.0-0.1); BASOPHILS % (AUTO) 0.7 %; EOSINOPHILS % (AUTO) 0.3 %; HCT - HEMATOCRIT 40.2 % (37.0-47.0); HGB - HEMOGLOBIN 13.1 g/dL (12.0-16.0); LYMPHOCYTES # (AUTO) 2.3 10^3/uL (1.5-3.5); LYMPHOCYTES % (AUTO) 24.8 %; MEAN CORPUSCULAR HEMOGLOBIN 29.6 pg (27.0-31.0); MEAN CORPUSCULAR HGB CONC 32.6 g/dL (32.0-36.0); MEAN CORPUSCULAR VOLUME 90.7 fL (81.0-99.0); MEAN PLATELET VOLUME 9.7 fL (7.9-10.8); MONOCYTES # (AUTO) 0.7 10^3/uL (0.0-1.0); MONOCYTES % (AUTO) 7.7 %; PLT - PLATELET COUNT 204 10^3/uL (130-450); RED BLOOD COUNT 4.43 10^6/uL (4.20-5.40); RED CELL DISTRIBUTION WIDTH 15.6 % (12.0-15.0); WHITE BLOOD COUNT 9.2 x10^3/uL (4.8-10.8)
[2024-03-20 06:22] LABS: CALCIUM 8.9 mg/dL (8.5-10.3); CREATININE 1.9 mg/dL (0.6-1.3); PHOSPHORUS 3.5 mg/dL (2.5-5.0); POTASSIUM 4.3 mmol/L (3.5-4.5)
[2024-03-20 07:00] LABS: THYROID STIMULATING HORMONE 0.45 uIU/mL (0.34-5.60)
[2024-03-20] MEDS ORDERED: hydrOXYzine PAMOATE 25 MG CAPSULE PO PRN (07:23)
--- NOTE | 2024-03-20 07:27 | PROVIDER PROGRESS NOTE ---
Subjective - Prog Note Date Prog Note Date: 03/20/24 Prog Note Time: 07:26 - Subjective Subjective: Overnight she was having anxiety and was unable to sleep thus was given IM Zyprexa with good effect. This morning the patient has improved from a cognitiv e standpoint and is able to verbalize her thought process better. She reports that she has malignant melanoma and is receiving Keytruda for that through an oncologist in [place] though she cannot recall the oncologist name. She also indicates that she was referred to nephrology by her oncologist, who is also in [place] though she does not know the name, and was prescribed prednisone a couple weeks ago for her kidneys. She is unclear why she was receiving prednisone however she thinks that the prednisone made her hyperactive and more confused than normal. Current Medications - Current Medications Current Medications: Current Medications Generic Name Dose Route Start Last Admin Trade Name Freq PRN Reason Stop Dose Admin Atorvastatin Calcium 20 mg 03/19/24 21:00 03/19/24 22:30 Atorvastatin 40 Mg Tablet PO 20 mg QPM QUINN Administration Heparin Sodium (Porcine) 5,000 unit 03/19/24 21:00 03/19/24 22:31 Heparin 5,000 Unit/Ml Vial SUBQ 5,000 unit BID QUINN Administration Insulin Human Lispro 1 - 5 unit 03/19/24 17:00 03/19/24 22:09 Insulin Lispro 300 Unit/3 Ml Pen SUBQ Not Given 0800,1200,1700,2100 [facility] Protocol Ondansetron HCl 4 mg 03/19/24 13:33 03/20/24 02:10 Ondansetron 4 Mg/2 Ml Vial IVP 4 mg Q6HR PRN Administration Nausea / Vomiting Sodium Chloride 10 ml 03/19/24 17:00 03/20/24 02:10 Sodium Chloride Flush 0.9% 10 Ml Syringe IVP 10 ml 0100,0900,1700 [facility] Administration Acetaminophen (Acetaminophen 325 Mg Tablet) 650 mg PO Q4HR PRN PRN Reason: Pain 1 to 4, or Fever Aspirin (Aspirin 325 Mg Tablet) 81 mg PO DAILYWM [facility] Atorvastatin Calcium (Atorvastatin 40 Mg Tablet) 20 mg PO QPM [facility] Last Admin: 03/19/24 22:30 Dose: 20 mg Clopidogrel Bisulfate (Clopidogrel 75 Mg Tablet) 75 mg PO DAILY [facility] Heparin Sodium (Porcine) (Heparin 5,000 Unit/Ml Vial) 5,000 unit SUBQ BID [facility] Last Admin: 03/19/24 22:31 Dose: 5,000 unit Hydroxyzine Pamoate (Hydroxyzine Pamoate 25 Mg Capsule) 50 mg PO Q8HR PRN PRN Reason: Anxiety Ceftriaxone Sodium 1 gm/ (Sodium Chloride) 100 mls @ 200 mls/hr IV DAILY [facility] Insulin Human Lispro (Insulin Lispro 300 Unit/3 Ml Pen) 1 - 5 unit SUBQ 0800, 1200,1700,2100 [facility]; Protocol Last Admin: 03/19/24 22:09 Dose: Not Given Olanzapine (Olanzapine Odt 5 Mg Tablet) 5 mg TL HS [facility] Ondansetron HCl (Ondansetron 4 Mg/2 Ml Vial) 4 mg IVP Q6HR PRN PRN Reason: Nausea / Vomiting Last Admin: 03/20/24 02:10 Dose: 4 mg Sodium Chloride (Sodium Chloride Flush 0.9% 10 Ml Syringe) 10 ml IVP PRN PRN PRN Reason: NEEDED PER PROVIDER ORDERS Sodium Chloride (Sodium Chloride Flush 0.9% 10 Ml Syringe) 10 ml IVP 0100,0900,1700 [facility] Last Admin: 03/20/24 02:10 Dose: 10 ml Objective - Vital Signs/Intake & Output Reviewed Vital Signs: Yes Vital Signs: Vital Signs x48h Temp Pulse Resp BP Pulse Ox 03/20/24 04:00 36.7 C 74 18 112/69 97 03/19/24 23:54 36.6 C 89 18 107/59 L 96 Intake & Output: Intake & Output 03/17/24 03/18/24 03/19/24 03/20/24 23:59 23:59 23:59 23:59 Intake Total 1370 1000 Output Total 600 800 Balance 770 200 - Objective General Appearance: positive: No acute distress, Alert Eyes Bilateral: positive: Normal inspection, PERRL, EOMI ENT: positive: ENT inspection nml, Dry mucous membranes Neck: positive: Nml inspection, Thyroid nml, No JVD, Trachea midline Respiratory: positive: No respiratory distress, Breath sounds nml Cardiovascular: positive: Regular rate & rhythm, No murmur, No gallop Abdomen: positive: Non-tender, No organomegaly, Nml bowel sounds, No distention Extremities: positive: Nml appearance, No pedal edema Neurologic/Psychiatric: positive: Other (She is alert and oriented to place and situation but note date. No focal neurologic weakness. Face is symmetric, but speech shows expressive aphasia. Her mood is improved today with less emotional lability and less tangential thought processes.) - Lab Results Fish Bones: 03/20/24 05:14 03/20/24 05:14 Other Labs: Lab Results x24hrs 03/20/24 03/20/24 03/20/24 Range/Units 05:14 05:14 02:40 WBC 9.2 (4.8-10.8) x10^3/uL RBC 4.43 (4.20-5.40) 10^6/uL Hgb 13.1 (12.0-16.0) g/dL Hct 40.2 (37.0-47.0) % MCV 90.7 (81.0-99.0) fL MCH 29.6 (27.0-31.0) pg MCHC 32.6 (32.0-36.0) g/dL RDW 15.6 H (12.0-15.0) % Plt Count 204 (130-450) 10^3/uL MPV 9.7 (7.9-10.8) fL Neut # (Auto) 6.0 (1.5-6.6) 10^3/uL Lymph # (Auto) 2.3 (1.5-3.5) 10^3/uL [place] # (Auto) 0.7 (0.0-1.0) 10^3/uL Eos # (Auto) 0.0 (0.0-0.7) 10^3/uL Baso # (Auto) 0.1 (0.0-0.1) 10^3/uL Absolute Nucleated RBC 0.00 x10^3/uL Nucleated RBC % 0.0 /100WBC Sodium 140 (135-145) mmol/L Potassium 4.3 (3.5-4.5) mmol/L Chloride 111 (101-111) mmol/L Carbon Dioxide 23 (21-32) mmol/L Anion Gap 6.0 (6-13) BUN 59 H (6-20) mg/dL Creatinine 1.9 H (0.6-1.3) mg/dL Estimated GFR (MDRD) 26 L (>89) Glucose 90 (74-104) mg/dL Lactic Acid (0.5-2.2) mmol/L Calcium 8.9 (8.5-10.3) mg/dL Phosphorus 3.5 (2.5-5.0) mg/dL Magnesium (1.7-2.3) mg/dL Total Bilirubin (0.2-1.0) mg/dL AST (10-42) IU/L ALT (10-60) IU/L Alkaline Phosphatase (42-121) IU/L Total Creatine Kinase (30-223) IU/L Troponin I High Sens 21.4 H* (2.3-14.8) ng/L Total Protein (6.4-8.9) g/dL Albumin (3.2-5.5) g/dL Globulin (2.1-4.2) g/dL Albumin/Globulin Ratio (1.0-2.2) Lipase (11-82) U/L Vitamin B12 1009 H (180-914) pg/mL Folate 9.4 (5.90 - >24.8) ng/mL TSH 0.45 (0.34-5.60) uIU/mL Urine Color Urine Clarity (CLEAR) Urine pH (5.0-7.5) PH Ur Specific [place] (1.002-1.030) Urine Protein (NEGATIVE) mg/dL Urine Glucose (UA) (NEGATIVE) mg/dL Urine Ketones (NEGATIVE) mg/dL Urine Occult Blood (NEGATIVE) Urine Nitrite (NEGATIVE) Urine Bilirubin (NEGATIVE) Urine Urobilinogen (NORMAL) E.U./dL Ur Leukocyte Esterase (NEGATIVE) Urine RBC (0-5) /HPF Urine WBC (0-5) /HPF Urine WBC Clumps Ur Squamous Epith Cells (<= Few) Urine Bacteria (None Seen) /HPF Urine Casts /LPF Ur Microscopic Review Urine Culture Comments Urine Creatinine mg/dL Urine Sodium mmol/L Nasal Adenovirus (PCR) Nasal B. parapertussis DNA (PCR) Nasal Coronavir 229E PCR Nasal Coronavir HKU1 PCR Nasal Coronavir NL63 PCR Nasal Coronavir OC43 PCR Nasal Enterovir/Rhinovir PCR Nasal Influenza B PCR Nasal Influenza A PCR Nasal Parainfluen 1 PCR Nasal Parainfluen 2 PCR Nasal Parainfluen 3 PCR Nasal Parainfluen 4 PCR Nasal RSV (PCR) Nasal B.pertussis DNA PCR Nasal C.pneumoniae (PCR) Arnold Human Metapneumo PCR Nasal M.pneumoniae (PCR) Nasal SARS-CoV-2 (PCR) Salicylates mg/dL Urine Opiates Screen (NEGATIVE) Ur Buprenorphine Scrn (NEGATIVE) Ur Oxycodone Screen (NEGATIVE) Urine Methadone Screen (NEGATIVE) Acetaminophen ug/mL Ur Barbiturates Screen (NEGATIVE) Ur Tricyclics Screen (NEGATIVE) Ur Phencyclidine Scrn (NEGATIVE) Ur Amphetamine Screen (NEGATIVE) U Methamphetamines Scrn (NEGATIVE) U Benzodiazepines Scrn (NEGATIVE) Urine Cocaine Screen (NEGATIVE) U Cannabinoids Screen (NEGATIVE) Ur Drug Screen Comment Ethyl Alcohol mg/dL 03/19/24 03/19/24 03/19/24 Range/Units 18:39 11:44 11:44 WBC (4.8-10.8) x10^3/uL RBC (4.20-5.40) 10^6/uL Hgb (12.0-16.0) g/dL Hct (37.0-47.0) % MCV (81.0-99.0) fL MCH (27.0-31.0) pg MCHC (32.0-36.0) g/dL RDW (12.0-15.0) % Plt Count (130-450) 10^3/uL MPV (7.9-10.8) fL Neut # (Auto) (1.5-6.6) 10^3/uL Lymph # (Auto) (1.5-3.5) 10^3/uL [place] # (Auto) (0.0-1.0) 10^3/uL Eos # (Auto) (0.0-0.7) 10^3/uL Baso # (Auto) (0.0-0.1) 10^3/uL Absolute Nucleated RBC x10^3/uL Nucleated RBC % /100WBC Sodium (135-145) mmol/L Potassium (3.5-4.5) mmol/L Chloride (101-111) mmol/L Carbon Dioxide (21-32) mmol/L Anion Gap (6-13) BUN (6-20) mg/dL Creatinine (0.6-1.3) mg/dL Estimated GFR (MDRD) (>89) Glucose (74-104) mg/dL Lactic Acid (0.5-2.2) mmol/L Calcium (8.5-10.3) mg/dL Phosphorus (2.5-5.0) mg/dL Magnesium (1.7-2.3) mg/dL Total Bilirubin (0.2-1.0) mg/dL AST (10-42) IU/L ALT (10-60) IU/L Alkaline Phosphatase (42-121) IU/L Total Creatine Kinase (30-223) IU/L Troponin I High Sens 25.6 H* (2.3-14.8) ng/L Total Protein (6.4-8.9) g/dL Albumin (3.2-5.5) g/dL Globulin (2.1-4.2) g/dL Albumin/Globulin Ratio (1.0-2.2) Lipase (11-82) U/L Vitamin B12 (180-914) pg/mL Folate (5.90 - >24.8) ng/mL TSH (0.34-5.60) uIU/mL Urine Color YELLOW Urine Clarity HAZY (CLEAR) Urine pH 5.5 (5.0-7.5) PH Ur Specific [place] 1.025 (1.002-1.030) Urine Protein NEGATIVE (NEGATIVE) mg/dL Urine Glucose (UA) NEGATIVE (NEGATIVE) mg/dL Urine Ketones NEGATIVE (NEGATIVE) mg/dL Urine Occult Blood NEGATIVE (NEGATIVE) Urine Nitrite POSITIVE H (NEGATIVE) Urine Bilirubin NEGATIVE (NEGATIVE) Urine Urobilinogen 0.2 (NORMAL) (NORMAL) E.U./dL Ur Leukocyte Esterase SMALL H (NEGATIVE) Urine RBC None Seen (0-5) /HPF Urine WBC 6-10 H (0-5) /HPF Urine WBC Clumps PRESENT Ur Squamous Epith Cells FEW Squamous (<= Few) Urine Bacteria Moderate H (None Seen) /HPF Urine Casts 6-10 Hyaline Casts /LPF Ur Microscopic Review INDICATED Urine Culture Comments INDICATED Urine Creatinine < 1.0 mg/dL Urine Sodium < 10.0 mmol/L Nasal Adenovirus (PCR) Nasal B. parapertussis DNA (PCR) Nasal Coronavir 229E PCR Nasal Coronavir HKU1 PCR Nasal Coronavir NL63 PCR Nasal Coronavir OC43 PCR Nasal Enterovir/Rhinovir PCR Nasal Influenza B PCR Nasal Influenza A PCR Nasal Parainfluen 1 PCR Nasal Parainfluen 2 PCR Nasal Parainfluen 3 PCR Nasal Parainfluen 4 PCR Nasal RSV (PCR) Nasal B.pertussis DNA PCR Nasal C.pneumoniae (PCR) Arnold Human Metapneumo PCR Nasal M.pneumoniae (PCR) Nasal SARS-CoV-2 (PCR) Salicylates mg/dL Urine Opiates Screen NEGATIVE (NEGATIVE) Ur Buprenorphine Scrn NEGATIVE (NEGATIVE) Ur Oxycodone Screen NEGATIVE (NEGATIVE) Urine Methadone Screen NEGATIVE (NEGATIVE) Acetaminophen ug/mL Ur Barbiturates Screen NEGATIVE (NEGATIVE) Ur Tricyclics Screen NEGATIVE (NEGATIVE) Ur Phencyclidine Scrn NEGATIVE (NEGATIVE) Ur Amphetamine Screen NEGATIVE (NEGATIVE) U Methamphetamines Scrn NEGATIVE (NEGATIVE) U Benzodiazepines Scrn NEGATIVE (NEGATIVE) Urine Cocaine Screen NEGATIVE (NEGATIVE) U Cannabinoids Screen NEGATIVE (NEGATIVE) Ur Drug Screen Comment CUTOFF CONC BELOW: Ethyl Alcohol mg/dL 03/19/24 03/19/24 03/19/24 Range/Units 11:31 11:28 11:28 WBC (4.8-10.8) x10^3/uL RBC (4.20-5.40) 10^6/uL Hgb (12.0-16.0) g/dL Hct (37.0-47.0) % MCV (81.0-99.0) fL MCH (27.0-31.0) pg MCHC (32.0-36.0) g/dL RDW (12.0-15.0) % Plt Count (130-450) 10^3/uL MPV (7.9-10.8) fL Neut # (Auto) (1.5-6.6) 10^3/uL Lymph # (Auto) (1.5-3.5) 10^3/uL [place] # (Auto) (0.0-1.0) 10^3/uL Eos # (Auto) (0.0-0.7) 10^3/uL Baso # (Auto) (0.0-0.1) 10^3/uL Absolute Nucleated RBC x10^3/uL Nucleated RBC % /100WBC Sodium (135-145) mmol/L Potassium (3.5-4.5) mmol/L Chloride (101-111) mmol/L Carbon Dioxide (21-32) mmol/L Anion Gap (6-13) BUN (6-20) mg/dL Creatinine (0.6-1.3) mg/dL Estimated GFR (MDRD) (>89) Glucose (74-104) mg/dL Lactic Acid 1.3 (0.5-2.2) mmol/L Calcium (8.5-10.3) mg/dL Phosphorus (2.5-5.0) mg/dL Magnesium (1.7-2.3) mg/dL Total Bilirubin (0.2-1.0) mg/dL AST (10-42) IU/L ALT (10-60) IU/L Alkaline Phosphatase (42-121) IU/L Total Creatine Kinase 27 L (30-223) IU/L Troponin I High Sens (2.3-14.8) ng/L Total Protein (6.4-8.9) g/dL Albumin (3.2-5.5) g/dL Globulin (2.1-4.2) g/dL Albumin/Globulin Ratio (1.0-2.2) Lipase (11-82) U/L Vitamin B12 (180-914) pg/mL Folate (5.90 - >24.8) ng/mL TSH (0.34-5.60) uIU/mL Urine Color Urine Clarity (CLEAR) Urine pH (5.0-7.5) PH Ur Specific [place] (1.002-1.030) Urine Protein (NEGATIVE) mg/dL Urine Glucose (UA) (NEGATIVE) mg/dL Urine Ketones (NEGATIVE) mg/dL Urine Occult Blood (NEGATIVE) Urine Nitrite (NEGATIVE) Urine Bilirubin (NEGATIVE) Urine Urobilinogen (NORMAL) E.U./dL Ur Leukocyte Esterase (NEGATIVE) Urine RBC (0-5) /HPF Urine WBC (0-5) /HPF Urine WBC Clumps Ur Squamous Epith Cells (<= Few) Urine Bacteria (None Seen) /HPF Urine Casts /LPF Ur Microscopic Review Urine Culture Comments Urine Creatinine mg/dL Urine Sodium mmol/L Nasal Adenovirus (PCR) NOT DETECTED Nasal B. parapertussis DNA (PCR) NOT DETECTED Nasal Coronavir 229E PCR NOT DETECTED Nasal Coronavir HKU1 PCR NOT DETECTED Nasal Coronavir NL63 PCR NOT DETECTED Nasal Coronavir OC43 PCR NOT DETECTED Nasal Enterovir/Rhinovir PCR NOT DETECTED Nasal Influenza B PCR NOT DETECTED Nasal Influenza A PCR NOT DETECTED Nasal Parainfluen 1 PCR NOT DETECTED Nasal Parainfluen 2 PCR NOT DETECTED Nasal Parainfluen 3 PCR NOT DETECTED Nasal Parainfluen 4 PCR NOT DETECTED Nasal RSV (PCR) NOT DETECTED Nasal B.pertussis DNA PCR NOT DETECTED Nasal C.pneumoniae (PCR) NOT DETECTED Arnold Human Metapneumo PCR NOT DETECTED Nasal M.pneumoniae (PCR) NOT DETECTED Nasal SARS-CoV-2 (PCR) NOT DETECTED Salicylates mg/dL Urine Opiates Screen (NEGATIVE) Ur Buprenorphine Scrn (NEGATIVE) Ur Oxycodone Screen (NEGATIVE) Urine Methadone Screen (NEGATIVE) Acetaminophen ug/mL Ur Barbiturates Screen (NEGATIVE) Ur Tricyclics Screen (NEGATIVE) Ur Phencyclidine Scrn (NEGATIVE) Ur Amphetamine Screen (NEGATIVE) U Methamphetamines Scrn (NEGATIVE) U Benzodiazepines Scrn (NEGATIVE) Urine Cocaine Screen (NEGATIVE) U Cannabinoids Screen (NEGATIVE) Ur Drug Screen Comment Ethyl Alcohol mg/dL 03/19/24 03/19/24 Range/Units 11:28 11:28 WBC 13.9 H (4.8-10.8) x10^3/uL RBC 5.44 H (4.20-5.40) 10^6/uL Hgb 15.8 (12.0-16.0) g/dL Hct 48.8 H (37.0-47.0) % MCV 89.7 (81.0-99.0) fL MCH 29.0 (27.0-31.0) pg MCHC 32.4 (32.0-36.0) g/dL RDW 15.4 H (12.0-15.0) % Plt Count 271 (130-450) 10^3/uL MPV 9.9 (7.9-10.8) fL Neut # (Auto) 10.4 H (1.5-6.6) 10^3/uL Lymph # (Auto) 2.3 (1.5-3.5) 10^3/uL [place] # (Auto) 1.0 (0.0-1.0) 10^3/uL Eos # (Auto) 0.0 (0.0-0.7) 10^3/uL Baso # (Auto) 0.1 (0.0-0.1) 10^3/uL Absolute Nucleated RBC 0.00 x10^3/uL Nucleated RBC % 0.0 /100WBC Sodium 136 (135-145) mmol/L Potassium 3.8 (3.5-4.5) mmol/L Chloride 101 (101-111) mmol/L Carbon Dioxide 24 (21-32) mmol/L Anion Gap 11.0 (6-13) BUN 87 H* (6-20) mg/dL Creatinine 3.0 H (0.6-1.3) mg/dL Estimated GFR (MDRD) 16 L (>89) Glucose 135 H (74-104) mg/dL Lactic Acid (0.5-2.2) mmol/L Calcium 10.4 H (8.5-10.3) mg/dL Phosphorus (2.5-5.0) mg/dL Magnesium 2.2 (1.7-2.3) mg/dL Total Bilirubin 0.6 (0.2-1.0) mg/dL AST 15 (10-42) IU/L ALT 16 (10-60) IU/L Alkaline Phosphatase 60 (42-121) IU/L Total Creatine Kinase (30-223) IU/L Troponin I High Sens (2.3-14.8) ng/L Total Protein 7.4 (6.4-8.9) g/dL Albumin 4.3 (3.2-5.5) g/dL Globulin 3.1 (2.1-4.2) g/dL Albumin/Globulin Ratio 1.4 (1.0-2.2) Lipase 132 H (11-82) U/L Vitamin B12 (180-914) pg/mL Folate (5.90 - >24.8) ng/mL TSH (0.34-5.60) uIU/mL Urine Color Urine Clarity (CLEAR) Urine pH (5.0-7.5) PH Ur Specific [place] (1.002-1.030) Urine Protein (NEGATIVE) mg/dL Urine Glucose (UA) (NEGATIVE) mg/dL Urine Ketones (NEGATIVE) mg/dL Urine Occult Blood (NEGATIVE) Urine Nitrite (NEGATIVE) Urine Bilirubin (NEGATIVE) Urine Urobilinogen (NORMAL) E.U./dL Ur Leukocyte Esterase (NEGATIVE) Urine RBC (0-5) /HPF Urine WBC (0-5) /HPF Urine WBC Clumps Ur Squamous Epith Cells (<= Few) Urine Bacteria (None Seen) /HPF Urine Casts /LPF Ur Microscopic Review Urine Culture Comments Urine Creatinine mg/dL Urine Sodium mmol/L Nasal Adenovirus (PCR) Nasal B. parapertussis DNA (PCR) Nasal Coronavir 229E PCR Nasal Coronavir HKU1 PCR Nasal Coronavir NL63 PCR Nasal Coronavir OC43 PCR Nasal Enterovir/Rhinovir PCR Nasal Influenza B PCR Nasal Influenza A PCR Nasal Parainfluen 1 PCR Nasal Parainfluen 2 PCR Nasal Parainfluen 3 PCR Nasal Parainfluen 4 PCR Nasal RSV (PCR) Nasal B.pertussis DNA PCR Nasal C.pneumoniae (PCR) Arnold Human Metapneumo PCR Nasal M.pneumoniae (PCR) Nasal SARS-CoV-2 (PCR) Salicylates < 1.5 mg/dL Urine Opiates Screen (NEGATIVE) Ur Buprenorphine Scrn (NEGATIVE) Ur Oxycodone Screen (NEGATIVE) Urine Methadone Screen (NEGATIVE) Acetaminophen 0.2 ug/mL Ur Barbiturates Screen (NEGATIVE) Ur Tricyclics Screen (NEGATIVE) Ur Phencyclidine Scrn (NEGATIVE) Ur Amphetamine Screen (NEGATIVE) U Methamphetamines Scrn (NEGATIVE) U Benzodiazepines Scrn (NEGATIVE) Urine Cocaine Screen (NEGATIVE) U Cannabinoids Screen (NEGATIVE) Ur Drug Screen Comment Ethyl Alcohol < 10.0 mg/dL - Diagnostic Imaging Diagnostic Imaging Results: positive: Final report reviewed Diagnostic Imaging Comments: Head CT: No acute intracranial pathology. Sequela of chronic microvascular ischemic disease. ABX Reporting Has patient been on IV antibiotics over the past 48 hours?: Yes Sepsis Event Note (H) - Evaluation Current Stage of Sepsis: Ruled out Assessment/Plan - Problem List (1) Acute kidney injury superimposed on CKD Impression: She has baseline CKD with a creatinine ranging from 1.2-1.5 as of 2021. She follows with a manager of digital in [place] however she cannot recall the name and does not recall her diagnosis or recent kidney function, though she indicates she was recently placed on prednisone for this. -Her acute kidney injury is improving and likely a result of prerenal causes such as dehydration and medication. -Continue to hold lisinopril continue IV fluids. -Urine electrolytes ordered and pending. Serum CK normal. -Repeat chemistry panel in the morning. (2) Acute metabolic encephalopathy Impression: Her confusion is multifactorial in nature, though at baseline it appears she may be confused to people who do not know her secondary to her baseline expressive aphasia and history of tangential thought process and emotional lability. Her acute worsening though is likely secondary to her urinary tract infection along with uremia with likely contributions from steroid-induced delirium. -Holding prednisone for now as I am unclear of the exact indication. -Continue to treat her ESTEFANIA as noted above. -Serum TSH, vitamin B12 and folate levels are normal. -Mentation is already improving with improvement in her ESTEFANIA though she also received Zyprexa last night which may be assisting. -Will schedule oral Zyprexa 5 mg nightly. (3) UTI (urinary tract infection) Impression: She has a history of E. coli UTIs in the past and her urinalysis was concerning for infection at admission. -Continue IV ceftriaxone. -Await urine culture results. Qualifiers: Urinary tract infection type: acute cystitis Hematuria presence: without hematuria Qualified Code(s): N30.00 - Acute cystitis without hematuria (4) Uremia Impression: Her uremia is likely due to her acute kidney injury along with underlying CKD. No evidence for GI bleeding at this time. -Continue to treat ESTEFANIA as noted above and follow daily CHEM panels. -Mentation is improving. (5) Psychiatric disorder Impression: She required telepsych consultation during her last hospitalization in September 2022. During that time she had a similar presentation that she currently has, with hyperverbal speech pattern, emotional lability, word salad, tangential thought process. -Received IM Zyprexa last night due to anxiety and insomnia, with good effect. -She was previously on oral Zyprexa thus we will start 5 mg oral Zyprexa nightly. 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 It is felt that her underlying psychiatric disorder and presentation in 2021 was a result of her previous CVA. -Continue home aspirin, clopidogrel and atorvastatin. (7) Hypertension Impression: Currently her blood pressure is controlled. It is unclear if she is currently taking previously prescribed lisinopril and metoprolol XL. -Would hold lisinopril if she is in fact taking this, due to her current ESTEFANIA. -Will need to contact her pharmacy to obtain an updated medication list. -Holding metoprolol XL as her blood pressure is not significantly elevated. Qualifiers: Hypertension type: primary hypertension Qualified Code(s): I10 - Essential (primary) hypertension (8) Carotid stenosis Impression: During her hospitalization September 2022 she had a neck CTA that showed 80% proximal right ICA stenosis. She was placed on aspirin and clopidogrel at that time and advised to follow-up with a vascular surgeon however is unclear if this follow-up visit occurred. -No indication that she is having an acute neurologic event at this time. -Continue home aspirin, clopidogrel, and atorvastatin. Qualifiers: Laterality: right Qualified Code(s): I65.21 - Occlusion and stenosis of right carotid artery (9) Type II diabetes mellitus Impression: Currently she is not taking any medications for this diagnosis. -Diabetic diet. A1c pending. -Sliding scale insulin for the time being. Qualifiers: Diabetes mellitus intermediate project manager insulin use: without intermediate project manager use Diabetes mellitus complication status: with kidney complications Diabetes mellitus complication detail: with chronic kidney disease Chronic kidney disease stage: stage 3 (moderate) Chronic kidney disease stage 3 subtype: unspecified whether 3a or 3b Qualified Code(s): E11.22 - Type 2 diabetes mellitus with diabetic chronic kidney disease; N18.30 - Chronic kidney disease, stage 3 unspecified
[2024-03-20] MEDS ORDERED: ASPIRIN 325 MG TABLET PO SCH (08:00)
[2024-03-20 08:02] LABS: ESTIMATED AVERAGE GLUCOSE 134 mg/dL (70-100); HEMOGLOBIN A1c% 6.3 % (4.27-6.07)
[2024-03-20] MEDS: cefTRIAXone 1 GM in SODIUM CHLORIDE 0.9% MINIBAG 100 ML IV SCH (09:17)
[2024-03-20] MEDS: CLOPIDOGREL 75 MG TABLET PO SCH (09:19)
[2024-03-20] MEDS: ASPIRIN EC 81 MG TABLET PO SCH (09:31)
--- NOTE | 2024-03-20 12:13 | PHARMACY PROGRESS NOTE ---
- Best Possible Medication History Admit Date and Time: 03/19/24 1331 Processed by: Pharmacy Medication History completed: Yes Patient Interview: Completed Secondary Source(s): Pharmacy records (COMPLETED USING PHARMACY INSURANCE), Insurance records (COMPLETED USING PHARMACY INSURANCE RECORDS AND PT INTERVIEW, OUTSIDE RETAIL PHARMACY CLOSED TODAY, THURSDAY, AND UNABLE TO VERIFY VIA TELEPHONE CALL TO [facility]) As the person ultimately responsible for medication therapy, providers are able to order a medication from an existing home medication list in [facility] via the "Reconcile Routine" prior to Confirmation of that medication by bioinformatics support specialist. Such practice is discouraged except when the physician, in their clinical judgment, deems that a medical need exists for a medication without regard to previous use.
[2024-03-20] MEDS: OLANZapine ODT 5 MG TABLET TL SCH (21:07)
[2024-03-20] MEDS: DOCUSATE SODIUM 250 MG CAPSULE PO SCH (21:07)
[2024-03-21 05:39] LABS: BASOPHILS # (AUTO) 0.1 10^3/uL (0.0-0.1); BASOPHILS % (AUTO) 0.7 %; EOSINOPHILS % (AUTO) 0.6 %; HCT - HEMATOCRIT 41.1 % (37.0-47.0); HGB - HEMOGLOBIN 12.8 g/dL (12.0-16.0); LYMPHOCYTES # (AUTO) 2.1 10^3/uL (1.5-3.5); LYMPHOCYTES % (AUTO) 31.1 %; MEAN CORPUSCULAR HEMOGLOBIN 28.6 pg (27.0-31.0); MEAN CORPUSCULAR HGB CONC 31.1 g/dL (32.0-36.0); MEAN CORPUSCULAR VOLUME 91.9 fL (81.0-99.0); MEAN PLATELET VOLUME 9.8 fL (7.9-10.8); MONOCYTES # (AUTO) 0.5 10^3/uL (0.0-1.0); MONOCYTES % (AUTO) 7.8 %; NEUTROPHILS % (AUTO) 59.4 %; PLT - PLATELET COUNT 188 10^3/uL (130-450); RED BLOOD COUNT 4.47 10^6/uL (4.20-5.40); RED CELL DISTRIBUTION WIDTH 15.5 % (12.0-15.0); WHITE BLOOD COUNT 6.7 x10^3/uL (4.8-10.8)
[2024-03-21 05:54] LABS: CALCIUM 9.5 mg/dL (8.5-10.3); CHOL/HDL RATIO 3.5 (<4.4); CHOLESTEROL 145 mg/dL; CREATININE 1.5 mg/dL (0.6-1.3); HDL CHOLESTEROL 42 mg/dL; LDL CHOLESTEROL,CALCULATED 75 mg/dL; LDL/HDL RATIO 1.8 (<4.4); POTASSIUM 4.3 mmol/L (3.5-4.5); TRIGLYCERIDES 139 mg/dL (48-352); VLDL CHOLESTEROL 28 mg/dL
--- NOTE | 2024-03-21 07:37 | PROVIDER PROGRESS NOTE ---
Subjective - Prog Note Date Prog Note Date: 03/21/24 Prog Note Time: 07:37 - Subjective Subjective: No acute events overnight. She reports feeling improved today and is able to converse better than the previous 2 days. She denies any current chest pain, shortness of breath, cough, fevers, chills, nausea, vomiting, diarrhea or dysuria. As her mentation clears we have obtained further information -she follows with Dr. Yovanny Velásquez of oncology in [place] for her malignant melanoma where she has been receiving Keytruda. She developed nephritis secondary to Keytruda and was referred to Dr. Darrell Quinteros of nephrology at [facility] in [place], who prescribed prednisone for this nephritis. Reportedly Dr. Quinteros was trying to wean prednisone as it was felt that the prednisone was exacerbating her underlying neurocognitive issues. Current Medications - Current Medications Current Medications: Acetaminophen (Acetaminophen 325 Mg Tablet) 650 mg PO Q4HR PRN PRN Reason: Pain 1 to 4, or Fever Aspirin (Aspirin Ec 81 Mg Tablet) 81 mg PO DAILY [facility] Last Admin: 03/20/24 09:31 Dose: 81 mg Atorvastatin Calcium (Atorvastatin 40 Mg Tablet) 20 mg PO QPM [facility] Last Admin: 03/20/24 21:07 Dose: 20 mg Clopidogrel Bisulfate (Clopidogrel 75 Mg Tablet) 75 mg PO DAILY [facility] Last Admin: 03/20/24 09:19 Dose: 75 mg Docusate Sodium (Docusate Sodium 250 Mg Capsule) 250 - 500 mg PO DAILY [facility] Last Admin: 03/20/24 21:07 Dose: 250 mg Heparin Sodium (Porcine) (Heparin 5,000 Unit/Ml Vial) 5,000 unit SUBQ BID [facility] Last Admin: 03/20/24 21:07 Dose: 5,000 unit Hydroxyzine Pamoate (Hydroxyzine Pamoate 25 Mg Capsule) 50 mg PO Q8HR PRN PRN Reason: Anxiety Ceftriaxone Sodium 1 gm/ (Sodium Chloride) 100 mls @ 200 mls/hr IV DAILY [facility] Stop: 03/22/24 09:29 Last Infusion: 03/20/24 09:55 Dose: Infused Insulin Human Lispro (Insulin Lispro 300 Unit/3 Ml Pen) 1 - 5 unit SUBQ 0800,1200,1700,2100 [facility]; Protocol Last Admin: 03/20/24 21:34 Dose: Not Given Olanzapine (Olanzapine Odt 5 Mg Tablet) 5 mg TL HS [facility] Last Admin: 03/20/24 21:07 Dose: 5 mg Ondansetron HCl (Ondansetron 4 Mg/2 Ml Vial) 4 mg IVP Q6HR PRN PRN Reason: Nausea / Vomiting Last Admin: 03/20/24 02:10 Dose: 4 mg Polyethylene Glycol (Polyethylene Glycol 3350 17 Gm Packet) 17 gm PO DAILY [facility] Sodium Chloride (Sodium Chloride Flush 0.9% 10 Ml Syringe) 10 ml IVP PRN PRN PRN Reason: NEEDED PER PROVIDER ORDERS Sodium Chloride (Sodium Chloride Flush 0.9% 10 Ml Syringe) 10 ml IVP 0100, 0900,1700 [facility] Last Admin: 03/21/24 01:00 Dose: 10 ml Objective - Vital Signs/Intake & Output Reviewed Vital Signs: Yes Vital Signs: Vital Signs x48h Temp Pulse Resp BP BP Pulse Ox 03/21/24 04:26 36.4 C L 87 16 105/65 96 03/20/24 23:51 36.5 C 78 16 129/78 98 Intake & Output: Intake & Output 03/18/24 03/19/24 03/20/24 03/21/24 23:59 23:59 23:59 23:59 Intake Total 1370 5015 Output Total 600 1850 400 Balance 770 3165 -400 - Objective General Appearance: positive: No acute distress, Alert Eyes Bilateral: positive: Normal inspection, PERRL, EOMI ENT: positive: ENT inspection nml, No signs of dehydration Neck: positive: Nml inspection, Thyroid nml, No JVD, Trachea midline Respiratory: positive: No respiratory distress, Breath sounds nml. negative: Wheezes, Rales, Rhonchi Cardiovascular: positive: Regular rate & rhythm, No murmur, No gallop Abdomen: positive: Non-tender, No organomegaly, Nml bowel sounds, No distention Skin: positive: Color nml, No rash, Warm, Dry Extremities: positive: Nml appearance, No pedal edema Neurologic/Psychiatric: positive: Oriented x3, Motor nml, Mood/affect nml, Other (Still with expressive aphasia, but overall this has improved. She is much less tangential with her thought process and has less emotional lability as well.) - Lab Results Fish Bones: 03/21/24 05:18 03/21/24 05:18 Other Labs: Lab Results x24hrs 03/21/24 03/21/24 03/21/24 Range/Units 05:18 05:18 05:18 WBC 6.7 (4.8-10.8) x10^3/uL RBC 4.47 (4.20-5.40) 10^6/uL Hgb 12.8 (12.0-16.0) g/dL Hct 41.1 (37.0-47.0) % MCV 91.9 (81.0-99.0) fL MCH 28.6 (27.0-31.0) pg MCHC 31.1 L (32.0-36.0) g/dL RDW 15.5 H (12.0-15.0) % Plt Count 188 (130-450) 10^3/uL MPV 9.8 (7.9-10.8) fL Neut # (Auto) 4.0 (1.5-6.6) 10^3/uL Lymph # (Auto) 2.1 (1.5-3.5) 10^3/uL [place] # (Auto) 0.5 (0.0-1.0) 10^3/uL Eos # (Auto) 0.0 (0.0-0.7) 10^3/uL Baso # (Auto) 0.1 (0.0-0.1) 10^3/uL Absolute Nucleated RBC 0.00 x10^3/uL Nucleated RBC % 0.0 /100WBC Sodium 142 (135-145) mmol/L Potassium 4.3 (3.5-4.5) mmol/L Chloride 113 H (101-111) mmol/L Carbon Dioxide 23 (21-32) mmol/L Anion Gap 6.0 (6-13) BUN 40 H (6-20) mg/dL Creatinine 1.5 H (0.6-1.3) mg/dL Estimated GFR (MDRD) 35 L (>89) Glucose 90 (74-104) mg/dL POC Whole Bld Glucose (70 - 100) mg/dL Estimat Average Glucose (70-100) mg/dL Hemoglobin A1c % (4.27-6.07) % Calcium 9.5 (8.5-10.3) mg/dL Triglycerides 139 (48-352) mg/dL Cholesterol 145 ( - 200) mg/dL LDL Cholesterol, Calc 75 ( - 129) mg/dL VLDL Cholesterol 28 mg/dL HDL Cholesterol 42 L (60 - ) mg/dL LDL/HDL Ratio 1.8 (<4.4) Cholesterol/HDL Ratio 3.5 (<4.4) 03/20/24 03/20/24 03/20/24 Range/Units 20:22 16:52 11:32 WBC (4.8-10.8) x10^3/uL RBC (4.20-5.40) 10^6/uL Hgb (12.0-16.0) g/dL Hct (37.0-47.0) % MCV (81.0-99.0) fL MCH (27.0-31.0) pg MCHC (32.0-36.0) g/dL RDW (12.0-15.0) % Plt Count (130-450) 10^3/uL MPV (7.9-10.8) fL Neut # (Auto) (1.5-6.6) 10^3/uL Lymph # (Auto) (1.5-3.5) 10^3/uL [place] # (Auto) (0.0-1.0) 10^3/uL Eos # (Auto) (0.0-0.7) 10^3/uL Baso # (Auto) (0.0-0.1) 10^3/uL Absolute Nucleated RBC x10^3/uL Nucleated RBC % /100WBC Sodium (135-145) mmol/L Potassium (3.5-4.5) mmol/L Chloride (101-111) mmol/L Carbon Dioxide (21-32) mmol/L Anion Gap (6-13) BUN (6-20) mg/dL Creatinine (0.6-1.3) mg/dL Estimated GFR (MDRD) (>89) Glucose (74-104) mg/dL POC Whole Bld Glucose 102 H 83 102 H (70 - 100) mg/dL Estimat Average Glucose (70-100) mg/dL Hemoglobin A1c % (4.27-6.07) % Calcium (8.5-10.3) mg/dL Triglycerides (48-352) mg/dL Cholesterol ( - 200) mg/dL LDL Cholesterol, Calc ( - 129) mg/dL VLDL Cholesterol mg/dL HDL Cholesterol (60 - ) mg/dL LDL/HDL Ratio (<4.4) Cholesterol/HDL Ratio (<4.4) 03/20/24 Range/Units 05:14 WBC (4.8-10.8) x10^3/uL RBC (4.20-5.40) 10^6/uL Hgb (12.0-16.0) g/dL Hct (37.0-47.0) % MCV (81.0-99.0) fL MCH (27.0-31.0) pg MCHC (32.0-36.0) g/dL RDW (12.0-15.0) % Plt Count (130-450) 10^3/uL MPV (7.9-10.8) fL Neut # (Auto) (1.5-6.6) 10^3/uL Lymph # (Auto) (1.5-3.5) 10^3/uL [place] # (Auto) (0.0-1.0) 10^3/uL Eos # (Auto) (0.0-0.7) 10^3/uL Baso # (Auto) (0.0-0.1) 10^3/uL Absolute Nucleated RBC x10^3/uL Nucleated RBC % /100WBC Sodium (135-145) mmol/L Potassium (3.5-4.5) mmol/L Chloride (101-111) mmol/L Carbon Dioxide (21-32) mmol/L Anion Gap (6-13) BUN (6-20) mg/dL Creatinine (0.6-1.3) mg/dL Estimated GFR (MDRD) (>89) Glucose (74-104) mg/dL POC Whole Bld Glucose (70 - 100) mg/dL Estimat Average Glucose 134 H (70-100) mg/dL Hemoglobin A1c % 6.3 H (4.27-6.07) % Calcium (8.5-10.3) mg/dL Triglycerides (48-352) mg/dL Cholesterol ( - 200) mg/dL LDL Cholesterol, Calc ( - 129) mg/dL VLDL Cholesterol mg/dL HDL Cholesterol (60 - ) mg/dL LDL/HDL Ratio (<4.4) Cholesterol/HDL Ratio (<4.4) - Diagnostic Imaging Diagnostic Imaging Results: positive: Final report reviewed Diagnostic Imaging Comments: Head CT: No acute intracranial pathology. Sequela of chronic microvascular ischemic disease. ABX Reporting Has patient been on IV antibiotics over the past 48 hours?: Yes Sepsis Event Note (H) - Evaluation Current Stage of Sepsis: Ruled out Assessment/Plan - Problem List (1) Acute kidney injury superimposed on CKD Impression: She has baseline CKD with creatinine of 1.2-1.5 as of 2021. She follows with Dr. 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 She has been on 50 mg prednisone since the beginning of January. There were reportedly concerns that the prednisone was worsening her mentation and there were plans to wean the steroids if possible. -Recurrent acute kidney injury is improving with IV fluids and was likely a result of prerenal causes such as dehydration. This was likely initiated by worsening mental status secondary to prednisone leading her to not eat and drink as much as she should. -Urinalysis on admission did show UTI however did not seem to have a large nephritic component. -Her prednisone has been held since admission as it was unclear what the diagno sis was until today. Will try to reach out to Dr. Quinteros to discuss further. -Serum CK on admission was normal. -Repeat CHEM panel tomorrow morning. (2) Acute metabolic encephalopathy Impression: Her confusion is multifactorial in nature, though at baseline it appears she may be confused to people who do not know her secondary to her baseline expressive aphasia and history of tangential thought process and emotional lability. Her baseline deficit was felt to be secondary to a hutchinson radiata infarct noted in 2021. Her acute worsening is likely secondary to her urinary tract infection along with ESTEFANIA leading to uremia, along with steroid induced delirium. -Her mentation has significantly improved since presentation. -Holding prednisone for now as noted above. -Treating her UTI as noted below. -Serum TSH, vitamin B12 and folate levels are normal. -She was previously on oral Zyprexa and this was restarted earlier this admission at 5 mg nightly. (3) UTI (urinary tract infection) Impression: Secondary to pansensitive E. coli. -Currently on IV ceftriaxone to finish tomorrow. Qualifiers: Urinary tract infection type: acute cystitis Hematuria presence: without hematuria Qualified Code(s): N30.00 - Acute cystitis without hematuria (4) Uremia Impression: Her uremia is likely due to her acute kidney injury in the setting of underlying CKD. No evidence for slow upper GI bleeding. -Continue treating ESTEFANIA as noted above, uremia is improving. (5) Psychiatric disorder Impression: She required telepsych consultation during her last hospitalization in September 2022. During that time she had a similar presentation that she currently had at the time of admission, with hyperverbal speech pattern, emotional lability, word salad and tangential thought process. -She did require IM Zyprexa the night after admission due to anxiety and insomnia, with good effect. -As she was previously prescribed Zyprexa in 2021, this was restarted at 5 mg nightly. -Her neurocognitive and psychiatric condition has improved dramatically since admission with treatment of her medical conditions and possibly with the resumption of Zyprexa. (6) Sequela of lacunar infarction Impression: She has a history of a hutchinson radiata CVA in the past, which can cause emotional lability, expressive aphasia and cognitive deficits. It is felt that her underlying psychiatric disorder presentation in 2021 was a result of her previo us CVA. -No acute evidence for new CVA. -Continue home aspirin, clopidogrel and atorvastatin. (7) Hypertension Impression: Currently her blood pressure is controlled off medication. She has been prescribed metoprolol XL 50 mg, lisinopril 20 mg and hydrochlorothiazide 12.5 mg. -Holding lisinopril and hydrochlorothiazide due to ESTEFANIA. -Have not resumed metoprolol XL due to blood pressures being adequate without antihypertensives. Qualifiers: Hypertension type: primary hypertension Qualified Code(s): I10 - Essential (primary) hypertension (8) Carotid stenosis Impression: During her hospitalization September 2022 she had a neck CTA that showed 80% proximal right ICA stenosis. She was placed on aspirin and clopidogrel at that time and advised to follow-up with a vascular surgeon however it is unclear if follow-up occurred. -No indication that she is having an acute neurologic event at this time. -Continue home aspirin, clopidogrel, atorvastatin. Qualifiers: Laterality: right Qualified Code(s): I65.21 - Occlusion and stenosis of right carotid artery (9) Type II diabetes mellitus Impression: Her chart indicated a history of type 2 diabetes however her current A1c is 6.3% indicating prediabetes. -Carb controlled diet. -Continue sliding scale insulin for the time being. Qualifiers: Diabetes mellitus intermodal customer service insulin use: without half-way use Diabetes mellitus complication status: with kidney complications Diabetes mellitus complication detail: with chronic kidney disease Chronic kidney disease stage: stage 3 (moderate) Chronic kidney disease stage 3 subtype: unspecified whether 3a or 3b Qualified Code(s): E11.22 - Type 2 diabetes mellitus with diabetic chronic kidney disease; N18.30 - Chronic kidney disease, stage 3 unspecified
[2024-03-21] MEDS: polyethylene glycoL 3350 17 GM PACKET PO SCH (08:30)
[2024-03-21 11:12] LABS: ESTIMATED AVERAGE GLUCOSE 120 mg/dL (70-100); HEMOGLOBIN A1c% 5.8 % (4.27-6.07)
[2024-03-21] MEDS: SENNA 8.6 MG TABLET PO SCH (21:12)
[2024-03-22 05:31] LABS: BASOPHILS # (AUTO) 0.1 10^3/uL (0.0-0.1); BASOPHILS % (AUTO) 0.6 %; EOSINOPHILS % (AUTO) 0.4 %; HCT - HEMATOCRIT 39.1 % (37.0-47.0); HGB - HEMOGLOBIN 12.7 g/dL (12.0-16.0); LYMPHOCYTES # (AUTO) 2.2 10^3/uL (1.5-3.5); MEAN CORPUSCULAR HGB CONC 32.5 g/dL (32.0-36.0); MEAN CORPUSCULAR VOLUME 89.3 fL (81.0-99.0); MEAN PLATELET VOLUME 9.8 fL (7.9-10.8); MONOCYTES # (AUTO) 0.7 10^3/uL (0.0-1.0); NEUTROPHILS % (AUTO) 66.6 %; PLT - PLATELET COUNT 196 10^3/uL (130-450); RED BLOOD COUNT 4.38 10^6/uL (4.20-5.40); RED CELL DISTRIBUTION WIDTH 15.3 % (12.0-15.0)
[2024-03-22 05:50] LABS: CALCIUM 9.8 mg/dL (8.5-10.3); CREATININE 1.3 mg/dL (0.6-1.3); POTASSIUM 4.1 mmol/L (3.5-4.5)
--- NOTE | 2024-03-22 11:03 | Discharge Plan ---
Discharge Plan Problem Reviewed?: Yes Disposition: Home, Self Care Condition: Stable Diet: Cardiac Activity Restrictions: Activity as Tolerated Shower Restrictions: No Driving Restrictions: Yes (no driving) Assistance Devices: Walker [facility] Concerns: You are a patient who already has a long medical history of diabetes, kidney disease, blocked arteries in your neck, high blood pressure, and a previous history of stroke that left you with balance issues and word finding issues. You came to the emergency room because you were noted to be confused. You were at a lab to get some blood work done but they were closed. You became dizzy. You lay down on the ground. Then you started to wave your phone around to try and get the attention of people around you. Eventually somebody else saw you on the ground and called 911. You seem to be having a stroke in that your speech was slurred. In the emergency room we actually found you to have a urinary tract infection with dehydration. Once we gave you IV antibiotics and intravenous fluids to hydrate you, your symptoms improved. You are back down to baseline and ready to go home. Their urinary tract infection was with bacteria called E. coli. You were treated with 3 days for intravenous antibiotics. You do not need any further treatment. You do have kidney disease from the medication you are taking for your history of melanoma. You have malignant melanoma and you are taking Keytruda. The Keytruda has given you a kidney disease called nephritis. You are currently taking prednisone for that. But your kidney specialist is trying to wean you off the prednisone since the prednisone may be making some of your confusion and agitation worse. Plan of Treatment: 1. Please see your primary care provider in the next 1 to 2 weeks. 2. Please follow-up with your kidney specialist and your cancer specialist for your melanoma Care Goals: you would like to remain in her home for as long as possible and independently as possible. You also want to complete therapy for your malignant melanoma. Assessment: Patient is alert and oriented to person, place, time and situation. Does exhibit some word finding difficulty but able to make her wishes known No Smoking: If you smoke, Please STOP! Call for help. Follow-up with: Joe Kaufman MD [Provider Admit Priv/Credential] -
[2024-03-22 11:13] VITALS: BP 122/79; O2SAT 96
--- NOTE | 2024-03-22 11:22 | DISCHARGE SUMMARY ---
"Discharge Summary Admit Date: 03/17/24 Discharge Date: 03/22/24 Discharging Provider: Maribell Ag MD Primary Care Provider: Joe Kaufman MD Code Status: Attempt Resuscitation Condition at Discharge: Stable Discharge Disposition: 01 Home, Self Care - DIAGNOSES Discharge Diagnoses with Status of Each Condition: 1. Acute metabolic encephalopathy secondary to #2 2. Acute kidney injury superimposed on chronic kidney disease 3. UTI 4. Psychiatric disorder 5. Sequela of lacunar infarction 6. Hypertension 7. Carotid stenosis 8. Type 2 diabetes mellitus, with kidney complications, without long-term use of insulin - HPI History of Present Illness: The patient is a 60-year-old female with a history of type 2 diabetes, CKD stage III, carotid stenosis, hypertension, history of CVA with residual gait ataxia, expressive aphasia and cognitive deficits. The patient presents today to the emergency department with confusion. History and review of systems are fairly limited as the patient is extremely tangential, emotionally labile and her underlying expressive aphasia complicates interactions.EMS was contacted today by bystanders who noted that the patient seemed to be confused. Apparently the patient was going to [facility] to have some blood drawn but they were closed today and she subsequently became dizzy. She later self down on the ground and started to wave her phone around to flag somebody down and the pedestrian ultimately came to her aid and called 911. The patient was unable to accurately describe what was going on with her due to her underlying hyperverbal and tangential speech. She was brought to the emergency department where her vitals were unremarkable she was noted to have acute kidney injury with a creatinine of 3.0 and BUN of 87. Her lactic acid and UDS were both negative however she did have evidence of urinary tract infection. A CT of her head was negative for ac [place] pathology and she was given IV ceftriaxone along with 1.5 L of IV fluids, and then admitted for further care due to her confusion and acute kidney injury. Of note the patient reports that over the past couple months she has been having intermittent dizzy episodes and presyncope, however she has never fully passed out. She denies any palpitations, chest pain, pleurisy, dyspnea, fevers, chills , vomiting or diarrhea. She does mention that she has a history of cancer and is currently on prednisone along with Keytruda, though she cannot give me details of the cancer or her oncologist as her speech is too tangential. Of note she was hospitalized at [facility] in September 2022 with a similar presentation of presyncope and acute kidney injury. During that hospitalization she was noted to be hyperverbal, emotionally labile, tangential speech, which were all felt to be residual effects from her hutchinson radiata CVA. Telepsych was consulted during that hospitalization and she was placed on Zyprexa. Also during that hospitalization apparently previous professional life friends excepted to be DURABLE POWER OF FINANCIAL DIRECTOR for her. They lived in [facility], and drove to [place] to pick her up from the hospital and take her back to [place]. The patient indicates that she did go to [place] but apparently they did not get along and she ultimately came back to [place], though it is unclear how long ago this happened. 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 She has chronic microvascular ischemic changes. 2. Urine culture with E. coli that is pansensitive. - HOSPITAL COURSE Hospital Course: Some of the patient's baseline psychiatric illness was worsened with this episode. Confabulation, pressured speech, confusion. Impulsive. Much of this improved or resolved when she was hydrated and given IV antibiotics. Creatinine started at 3 and was 1.3 by the time of discharge. She was given 3 doses of Ro cephin. White cell count is normal. Her Zyprexa was resumed. Her usual medications for diabetes were held. She is on metformin at home of the creatinine of 3 it was contraindicated. That will be resumed at discharge. She completed 3 days of IV antibiotic therapy. Had a normal white cell count. No further treatment needed to be completed at home. This patient has social science professor. She also has a caregiver that comes once a week. She is still able to cook for self, clean her apartment, and stay safely in her apartment and she is discharged back to her apartment. At discharge temperature is 36.7. Heart rate 85. Blood pressure 122/79. Respirations 18. 96% on room air. She is a 5 foot 4 inch obese female who looks older than stated age. Pleasant. Oriented to self, time, and situation. Has some word finding difficulties but able to communicate effectively. She is 99 kg. Diminished breath sounds at the bases but clear otherwise without respiratory distress. Regular rate and rhythm. And abdomen that is obese, soft, nontender with normal bowel sounds. Able to sit up in bed, go from supine to sitting without assist. Able to feed herself without assist. Greater than 30 minutes spent coordinating discharge This document was made in part using voice recognition software. While efforts are made to proofread this document, sound alike and grammatical errors may occur. - ALLERGIES Allergies/Adverse Reactions: Allergies Allergy/AdvReac Type Severity Reaction Status Date / Time No Known Drug Allergies Allergy Verified 09/14/22 10:13 - MEDICATIONS Home Medications: Ambulatory Orders Medication Instructions Recorded Confirmed Aspirin [Aspirin EC] 81 mg PO DAILY #100 tab 09/26/22 03/20/24 Atorvastatin [Lipitor] 20 mg PO DAILY #30 tablet 09/26/22 03/20/24 Clopidogrel [Plavix] 75 mg PO DAILY #30 tablet 09/26/22 03/20/24 Metoprolol Succinate [Toprol Xl] 50 mg PO DAILY #30 tablet 09/29/22 03/20/24 lisinopriL [Zestril] 20 mg PO DAILY #30 tablet 09/29/22 03/20/24 Gabapentin [Neurontin] 300 mg PO DAILY 03/20/24 03/20/24 hydroCHLOROthiazide [Hydrodiuril] 12.5 mg PO DAILY 03/20/24 03/20/24 predniSONE [Prednisone] 50 mg PO DAILY 03/20/24 03/20/24 - LABS Result Diagrams: 03/22/24 05:00 03/22/24 05:00 - SEPSIS Current Stage of Sepsis: Ruled out"
[2024-03-22] MEDS ORDERED: SENNA 8.6 MG TABLET PO SCH (21:00)
== END 2024-03-22 12:06 | disposition home or self-care (01) | DRG 682 ==
LOC: EDUNIT# → ED 10:49 → MS2 13:31
PROVIDERS: ADMIT Hospitalist; ATTEND Specialist
DX: G93.40 Encephalopathy, unspecified (principal); E11.51 Type 2 diabetes mellitus with diabetic peripheral angiopathy without gangrene; N17.9 Acute kidney failure, unspecified; G93.41 Metabolic encephalopathy; Z11.2 Encounter for screening for other bacterial diseases; Z11.52 Encounter for screening for COVID-19; Z11.59 Encounter for screening for other viral diseases; N30.00 Acute cystitis without hematuria; I12.9 Hypertensive chronic kidney disease with stage 1 through stage 4 chronic kidney disease, or unspecified chronic kidney disease; E11.22 Type 2 diabetes mellitus with diabetic chronic kidney disease; N18.30 Chronic kidney disease, stage 3 unspecified; I69.393 Ataxia following cerebral infarction; I69.320 Aphasia following cerebral infarction; I69.319 Unspecified symptoms and signs involving cognitive functions following cerebral infarction; E66.9 Obesity, unspecified; I65.21 Occlusion and stenosis of right carotid artery; F41.9 Anxiety disorder, unspecified; G47.00 Insomnia, unspecified; Z79.02 Long term (current) use of antithrombotics/antiplatelets; Z79.82 Long term (current) use of aspirin; Z79.899 Other long term (current) drug therapy; Z82.49 Family history of ischemic heart disease and other diseases of the circulatory system
CPT/HCPCS: 36415; 70450; 80048; 80053; 80061; 80143; 80306; 81001; 82550; 82570; 82607; 82746; 83036; 83605; 83690; 83735; 84100; 84300; 84443; 84484; 85025; 87086; 87181; 87633; 96374; 99284; 99285; A9270; G0480; 80179; 81003; 82077; 83721; 93005

== ENCOUNTER 2024-04-15 15:13 | Outpatient (CLI) | payer MEDICARE, MEDICAID ==
[2024-04-15 18:02] LABS: BASOPHILS # (AUTO) 0.1 10^3/uL (0.0-0.1); BASOPHILS % (AUTO) 0.8 %; EOSINOPHILS # (AUTO) 0.1 10^3/uL (0.0-0.7); EOSINOPHILS % (AUTO) 1.1 %; HCT - HEMATOCRIT 39.7 % (37.0-47.0); HGB - HEMOGLOBIN 13.6 g/dL (12.0-16.0); LYMPHOCYTES # (AUTO) 2.7 10^3/uL (1.5-3.5); LYMPHOCYTES % (AUTO) 31.3 %; MEAN CORPUSCULAR HEMOGLOBIN 29.3 pg (27.0-31.0); MEAN CORPUSCULAR HGB CONC 34.3 g/dL (32.0-36.0); MEAN CORPUSCULAR VOLUME 85.6 fL (81.0-99.0); MEAN PLATELET VOLUME 10.1 fL (7.9-10.8); MONOCYTES # (AUTO) 0.7 10^3/uL (0.0-1.0); MONOCYTES % (AUTO) 8.1 %; NEUTROPHILS # (AUTO) 5.1 10^3/uL (1.5-6.6); NEUTROPHILS % (AUTO) 58.2 %; PLT - PLATELET COUNT 277 10^3/uL (130-450); RED BLOOD COUNT 4.64 10^6/uL (4.20-5.40); RED CELL DISTRIBUTION WIDTH 13.9 % (12.0-15.0); WHITE BLOOD COUNT 8.7 x10^3/uL (4.8-10.8)
[2024-04-15 18:48] LABS: ALBUMIN 4.2 g/dL (3.2-5.5); ALBUMIN/GLOBULIN RATIO 1.6 (1.0-2.2); ALKALINE PHOSPHATASE 67 IU/L (42-121); ALT ALANINE AMINOTRANSFERASE 11 IU/L (10-60); AST ASPARTATE AMINOTRANSFERASE 18 IU/L (10-42); BILIRUBIN,TOTAL 0.5 mg/dL (0.2-1.0); BUN - BLOOD UREA NITROGEN 40 mg/dL (6-20); CALCIUM 9.9 mg/dL (8.5-10.3); CARBON DIOXIDE - CO2 25 mmol/L (21-32); CHLORIDE 88 mmol/L (101-111); CHOL/HDL RATIO 2.9 (<4.4); CHOLESTEROL 143 mg/dL; CREATININE 1.9 mg/dL (0.6-1.3); GFR - MDRD 26 (>89); GLUCOSE 115 mg/dL (74-104); HDL CHOLESTEROL 50 mg/dL; LDL CHOLESTEROL,CALCULATED 72 mg/dL; LDL/HDL RATIO 1.4 (<4.4); POTASSIUM 4.4 mmol/L (3.5-4.5); SODIUM 121 mmol/L (135-145); TOTAL PROTEIN 6.9 g/dL (6.4-8.9); TRIGLYCERIDES 107 mg/dL (48-352); VLDL CHOLESTEROL 21 mg/dL
[2024-04-15 19:00] LABS: THYROID STIMULATING HORMONE 1.28 uIU/mL (0.34-5.60)
[2024-04-15 20:33] LABS: ESTIMATED AVERAGE GLUCOSE 120 mg/dL (70-100); HEMOGLOBIN A1c% 5.8 % (4.27-6.07)
== END 2024-04-15 15:14 | disposition home or self-care (01) ==
LOC: LAB.N 15:13
PROVIDERS: ATTEND Family Medicine
DX: I10 Essential (primary) hypertension (principal); Z86.79 Personal history of other diseases of the circulatory system; C43.70 Malignant melanoma of unspecified lower limb, including hip; F32.A Depression, unspecified
CPT/HCPCS: 36415; 80053; 80061; 81001; 81003; 83036; 83721; 84443; 85025; 87086

== ENCOUNTER 2024-04-17 19:10 | Outpatient (CLI) | payer MEDICARE, MEDICAID | END 2024-04-17 23:59 | disposition EMS.NT | LOC: EMS 19:10 | DX: Z03.89 Encounter for observation for other suspected diseases and conditions ruled out (principal) ==

== ENCOUNTER 2024-04-19 08:00 | Outpatient (CLI) | payer MEDICARE, MEDICAID ==
[2024-04-19 17:47] LABS: BILIRUBIN,URINE NEGATIVE (NEGATIVE); GLUCOSE, URINE (UA) NEGATIVE (NEGATIVE); KETONES,URINE (UA) NEGATIVE (NEGATIVE); LEUKOCYTE ESTERASE, URINE NEGATIVE (NEGATIVE); NITRITE,URINE NEGATIVE (NEGATIVE); OCCULT BLOOD,URINE NEGATIVE (NEGATIVE); PH,URINE 6.5 PH (5.0-7.5); PROTEIN,URINE NEGATIVE (NEGATIVE); UROBILINOGEN,URINE 0.2 (NORMAL) E.U./dL (NORMAL)
[2024-04-19 17:48] LABS: CLARITY,URINE CLEAR (CLEAR)
[2024-04-19 18:01] LABS: BACTERIA,URINE Many /HPF (None Seen); RBC,URINE None Seen /HPF (0-5); SQUAMOUS EPITHELIAL CELL,UR FEW Squamous (<= Few); WBC,URINE 0-3 /HPF (0-5)
== END 2024-04-19 23:59 | disposition home or self-care (01) ==
LOC: LAB.R 08:00
PROVIDERS: ATTEND Family Medicine
DX: I10 Essential (primary) hypertension (principal); C43.70 Malignant melanoma of unspecified lower limb, including hip; Z86.79 Personal history of other diseases of the circulatory system; F32.A Depression, unspecified
CPT/HCPCS: 81001; 87086